=== PATIENT | female | born 1975 | race African-American/Black ===

== ENCOUNTER 2018-10-21 12:40 | Inpatient (IN) | payer MEDICARE, MEDICAID ==
[~2018-10-21] VITALS: Ht 167.6 cm; Wt 81.6 kg
[~2018-10-21 12:40] MED LIST: ASPIRIN81 M1 PO; CATAPRES-TTS-31 EA TD; CLONIDINE0.1 MG; LABETALOL H5 MG/1 ML; LABETALOL HCL200 MG ORAL; NEXIUM40 MG ORAL; NIFEDIPINE20 MG PO; PERCOCET 5-3251 EACH PO; PHENERGAN25 M1 PO; RENAGEL800 MG; SENSIPAR30 MG ORAL
[2018-10-21] MEDS ORDERED: Morphine Sulfate 4mg/ml Inj (IV USE ONLY) IVP ONE ×2 (13:00→16:00)
[2018-10-21 13:05] VITALS: BP 170/94
[2018-10-21] MEDS ORDERED: Isovue-300 100ml vial INJ PRN (13:15)
[2018-10-21 14:17] LABS: BASOPHILS % (AUTO) 2.4 % (0.0-2.0); EOSINOPHILS % (AUTO) 1.2 % (0.0-3.0); HEMATOCRIT 41.8 % (37.0-47.0); HEMOGLOBIN 12.3 G/DL (12.0-16.0); LYMPHOCYTES % (AUTO) 15.7 % (20.0-45.0); MEAN CORPUSCULAR VOLUME 75 FL (80-99); MONOCYTES % (AUTO) 5.8 % (1.0-10.0); NEUTROPHILS % (AUTO) 74.8 % (45.0-75.0); PLATELET COUNT 159 K/UL (150-450); RED BLOOD COUNT 5.55 M/UL (4.20-5.40); RED CELL DISTRIBUTION WIDTH 18.6 % (11.6-14.8); WHITE BLOOD COUNT 4.6 K/UL (4.8-10.8)
[2018-10-21 14:20] LABS: ALANINE AMINOTRANSFERASE 33 U/L (12-78); ALBUMIN 4.2 G/DL (3.4-5.0); ALBUMIN/GLOBULIN RATIO 1.1 (1.0-2.7); ALKALINE PHOSPHATASE 72 U/L (46-116); ANION GAP 14 mmol/L (5-15); ASPARTATE AMINO TRANSFERASE 34 U/L (15-37); BILIRUBIN,TOTAL 0.5 MG/DL (0.2-1.0); BLOOD UREA NITROGEN 51 mg/dL (7-18); CALCIUM 9.5 MG/DL (8.5-10.1); CARBON DIOXIDE 23 MMOL/L (21-32); CHLORIDE 104 MMOL/L (98-107); CREATININE 10.7 MG/DL (0.55-1.30); SODIUM 141 MMOL/L (136-145)
--- NOTE | 2018-10-21 14:25 | NUR ---
ED Nurse Note: patient was brought in by her boyfriend, complaining of N/V, abdominal pain 10/10. also per patient she has pain in her legs. AAO x4, skin is dry, intact. Patient has dialisis every M, W, F. AV fistula on her left upper arm. Boyfriend is by bedside.
[2018-10-21 14:27] LABS: POTASSIUM 6.8 MMOL/L (3.5-5.1)
--- NOTE | 2018-10-21 14:39 | NUR ---
ED Nurse Note: BLOOD REDRAWN AND SENT TO LAB.
[2018-10-21] MEDS ORDERED: Insulin Human Regular 100units/ml 3ml IV ONE (14:45)
[2018-10-21] MEDS ORDERED: Calcium Gluconate 1gm/10ml vial IVP ONE (14:45)
--- NOTE | 2018-10-21 14:57 | Emergency Room Report ---
History of Present Illness General Chief Complaint: Abdominal Pain Source: Patient (Davon Briggs MD) Present Illness HPI 43-year-old female presents ED for evaluation. Complaining of abdominal pain with nausea and vomiting 1 day. Started yesterday. Epigastric, 10 out of 10, sharp. Nonradiating. Denies chest pain or shortness of breath. History of end -stage renal disease on dialysis. States she did not complete her dialysis session yesterday because of the pain. Denies vomiting or diarrhea. No other aggravating relieving factors. Denies any other associated symptoms (Davon Briggs MD) Allergies: Coded Allergies: No Known Allergies (Unverified , 01/12/14) Patient History Past Medical History: renal disease, dialysis Past Surgical History: none Pertinent Family History: none Social History: Denies: smoking, alcohol use, drug use Now: No Immunizations: UTD Reviewed Nursing Documentation: PMH: Agreed; PSxH: Agreed (Davon Briggs MD) Nursing Documentation-PMH Past Medical History: No History, Except For Hx Cardiac Problems: Yes Hx Hypertension: Yes Hx Pacemaker: No Hx Asthma: No Hx COPD: No Hx Diabetes: No Hx Cancer: No Hx Gastrointestinal Problems: No Hx Dialysis: Yes - MWF Hx Neurological Problems: No - osteoporosis Hx Cerebrovascular Accident: No Hx Seizures: No (Davon Briggs MD) Review of Systems All Other Systems: negative except mentioned in HPI (Davon Briggs MD) Physical Exam Vital Signs Date Time Temp Pulse Resp B/P (MAP) Pulse Ox O2 Delivery O2 Flow Rate FiO2 10/21/18 12:45 98.4 89 20 168/97 98 Room Air Sp02 EP Interpretation: reviewed, normal General Appearance: no apparent distress, alert, GCS 15, non-toxic Head: normocephalic, atraumatic Eyes: bilateral eye normal inspection, bilateral eye PERRL ENT: hearing grossly normal, normal pharynx, no angioedema, normal voice Neck: full range of motion, supple/symm/no masses Respiratory: chest non-tender, lungs clear, normal breath sounds, speaking full sentences Cardiovascular #1: regular rate, rhythm, no edema Cardiovascular #2: 2+ carotid (R), 2+ carotid (L), 2+ radial (R), 2+ radial (L) , 2+ dorsalis pedis (R), 2+ dorsalis pedis (L) Gastrointestinal: normal bowel sounds, soft, non-distended, no guarding, no rebound, tenderness - epigastric Rectal: deferred Genitourinary: normal inspection, no CVA tenderness Musculoskeletal: back normal, gait/station normal, normal range of motion, non- tender Neurologic: alert, oriented x3, responsive, motor strength/tone normal, sensory intact, speech normal Psychiatric: judgement/insight normal, memory normal, mood/affect normal, no suicidal/homicidal ideation Reflexes: 3+ bicep (R), 3+ bicep (L), 3+ tricep (R), 3+ tricep (L), 3+ knee (R) , 3+ knee (L) Skin: normal color, no rash, warm/dry, well hydrated Lymphatic: no adenopathy (Davon Briggs MD) Medical Decision Making Diagnostic Impression: Primary Impression: Hyperkalemia, diminished renal excretion Additional Impressions: ESRD on dialysis Abdominal pain Qualified Codes: R10.13 - Epigastric pain Labs Test 10/21/18 13:40 White Blood Count 4.6 K/UL (4.8-10.8) Red Blood Count 5.55 M/UL (4.20-5.40) Hemoglobin 12.3 G/DL (12.0-16.0) Hematocrit 41.8 % (37.0-47.0) Mean Corpuscular Volume 75 FL (80-99) Mean Corpuscular Hemoglobin 22.2 PG (27.0-31.0) Mean Corpuscular Hemoglobin Concent 29.4 G/DL (32.0-36.0) Red Cell Distribution Width 18.6 % (11.6-14.8) Platelet Count 159 K/UL (150-450) Mean Platelet Volume 9.2 FL (6.5-10.1) Neutrophils (%) (Auto) 74.8 % (45.0-75.0) Lymphocytes (%) (Auto) 15.7 % (20.0-45.0) Monocytes (%) (Auto) 5.8 % (1.0-10.0) Eosinophils (%) (Auto) 1.2 % (0.0-3.0) Basophils (%) (Auto) 2.4 % (0.0-2.0) Sodium Level 141 MMOL/L (136-145) Potassium Level 6.8 MMOL/L (3.5-5.1) Chloride Level 104 MMOL/L (98-107) Carbon Dioxide Level 23 MMOL/L (21-32) Anion Gap 14 mmol/L (5-15) Blood Urea Nitrogen 51 mg/dL (7-18) Creatinine 10.7 MG/DL (0.55-1.30) Estimat Glomerular Filtration Rate 4.7 mL/min (>60) Glucose Level 79 MG/DL (74-106) Calcium Level 9.5 MG/DL (8.5-10.1) Total Bilirubin 0.5 MG/DL (0.2-1.0) Aspartate Amino Transf (AST/SGOT) 34 U/L (15-37) Alanine Aminotransferase (ALT/SGPT) 33 U/L (12-78) Alkaline Phosphatase 72 U/L (46-116) Troponin I 0.040 ng/mL (0.000-0.056) Total Protein 8.1 G/DL (6.4-8.2) Albumin 4.2 G/DL (3.4-5.0) Globulin 3.9 g/dL Albumin/Globulin Ratio 1.1 (1.0-2.7) Lipase 169 U/L (73-393) (Davon Briggs MD) ER Course I received signout from Dr. Briggs 43-year-old female, end-stage renal disease, found to be hyperkalemic, this was treated. Also with abdominal pain. I was told to follow-up on the CT scan of her abdomen. CT scan results are below CT Abdomen Pelvis IMPRESSION: No acute findings. Suboptimal evaluation of the appendix which is only partially seen but appears normal as such. No secondary signs of acute appendicitis seen. Atrophic kidneys. Innumerable cysts. 2 tiny hypodensities in the liver too small to characterize adequately. Atherosclerotic vascular disease. Fused bilateral sacroiliac joints. Old rib fractures Patient still in some pain, had to give her more pain medication. We'll admit I signed out patient [facility] EKG Diagnostic Results Rate: normal Rhythm: NSR ST Segments: other - peaked Twaves in lateral leads ASA given to the pt in ED: No (Davon Briggs MD) Rhythm Strip Diag. Results EP Interpretation: yes Rhythm: NSR, no PVC's, no ectopy (Davon Briggs MD) Last Vital Signs Date Time Temp Pulse Resp B/P (MAP) Pulse Ox O2 Delivery O2 Flow Rate FiO2 10/21/18 12:45 98.4 89 20 168/97 98 Room Air Status: improved (Davon Briggs MD) Disposition: ADMITTED INPATIENT Condition: Serious Referrals: NOT CHOSEN IPA/,REFERRING (PCP) Davon Briggs MD Oct 21, 2018 14:57 Rhys Weber M.D. Oct 21, 2018 17:53
[2018-10-21 15:10] VITALS: BP 168/90
--- NOTE | 2018-10-21 15:10 | NUR ---
ED Nurse Note: patient is in the bed sleeping, no acute disstress noticed
--- NOTE | 2018-10-21 16:06 | Diagnostic Imaging Report ---
Indication: Abdominal pain Technique: Continuous helical transaxial imaging of the abdomen and pelvis was obtained from the lung bases to the pubic symphysis during intravenous contrast administration. Coronal 2-D reformats were also obtained. Study obtained in a Siemens sensation [address] Automatic Exposure Control was utilized. Total Dose length Product (DLP): 717.[address] Dose Index Volume (CTDIvol): 14.12 mGy Comparison: None Findings: Lung bases are clear. There are 2 tiny hypodensities in the liver too small to adequately characterize. Spleen is unremarkable. The kidneys are atrophic. There are innumerable cysts within both kidneys. Moderate aortoiliac calcifications are present. The gallbladder, spleen and pancreas are unremarkable. The bladder is nondistended. Uterus noted. Appendix is not seen well but is probably identified at least partially and appears normal as such. The sacroiliac joints are fused. There are old rib fractures on the left side. IMPRESSION: No acute findings. Suboptimal evaluation of the appendix which is only partially seen but appears normal as such. No secondary signs of acute appendicitis seen. Atrophic kidneys. Innumerable cysts. 2 tiny hypodensities in the liver too small to characterize adequately. Atherosclerotic vascular disease. Fused bilateral sacroiliac joints. Old rib fractures The CT scanner at [facility] is accredited by the [employer] and the scans are performed using dose optimization techniques as appropriate to a performed exam including Automatic Exposure control.
[2018-10-21 16:40] VITALS: BP 175/98
--- NOTE | 2018-10-21 17:14 | NUR ---
ED Nurse Note: patient was admited to [facility] due to hyperkalemia, AAO x4, BP is 170/89, ER MD aware. Other VSS at this time. Patient was transfered by ACLS protocol.
--- NOTE | 2018-10-21 17:16 | NUR ---
ED Nurse Note: all belonging were given to the patient.
--- NOTE | 2018-10-21 17:18 | NUR ---
CASE MANAGEMENT: INITIAL REVIEW 43 YO F PRESENTED TO OUR ED FROM HOME CC: N/V AND BODY ACHES PMHx: ESRD. HD MWF. HTN. SI:HYPERKALEMIA. ESRD. T 98.4 HR 89 RR 20 B/P 168/97 SATS 98% ON RA WBC 4.6 K 6.8 BUN 51 CR 10.7 IS: ZOFRAN IV X1 PEPCID IV X1 MORPHINE IV X1 CALCIUM GLUCONATE IV X1 INSULIN HUMAN REGULAR 10 UNITS X1 D50W X[address] Abdomen Pelvis w/Contrast (-) PATIENT ADMITTED TO STEP DOWN UNIT 10/21/2018 @ 1433 DCP: PATIENT TO BE DISCHARGED TO HOME ONCE MEDICALLY CLEARED. PLAN OF CARE: NEPHRO CONSULT Addendum: 10/21/18 at 1928 by Beernice Jones CM INTERQUAL MET
[2018-10-21 17:30] VITALS: BP 170/104
--- NOTE | 2018-10-21 17:30 | NUR ---
NURSE NOTES: received pt from ER with dx Hyperkalemia, awake, alert, oriented, BP elevated, HD pt, AV shunt on left upper arm, skin warm and dry to touch, intact, anuric, no co pain at this time, pt on RA O2SAT 100%, CALL DR Singh for order.
[2018-10-21] MEDS ORDERED: D5 1/2NS 1,000 ML IV SCH (18:51)
[2018-10-21] MEDS ORDERED: Miralax 17gm pkt ORAL PRN (19:00)
[2018-10-21] MEDS ORDERED: Albuterol/Ipratropium 3ml neb HHN PRN (19:00)
[2018-10-21] MEDS ORDERED: Amikacin Rx to dose MISC PRN (19:00)
--- NOTE | 2018-10-21 19:10 | History & Physical ---
History and Physical History & Physicial The patient was seen and examined at bedside and all new and available data was reviewed in the patients chart. F/U Labs (Patient was seen earlier today. Signature timestamp does not reflect patient encounter time) Alen Alvarez MD, MD Oct 21, 2018 19:09
--- NOTE | 2018-10-21 19:28 | NUR ---
HAND-OFF: Report given to HERMES OLVERA.
[2018-10-21 20:00] VITALS: BP 165/95
[2018-10-21] MEDS ORDERED: Vancomycin 1.25gm Premix IVPB SCH (21:00)
[2018-10-21] MEDS: Heparin 5000 units/ml inj SUBQ SCH (21:06)
[2018-10-21] MEDS ORDERED: Amikacin 500 MG in NS 110 ML IV SCH (22:00)
[2018-10-22] VITALS (7 sets, daily range): BP systolic 140–180; BP diastolic 80–116
--- NOTE | 2018-10-22 00:15 | NUR ---
NURSE NOTES:Aware Dr Jaime that pts bp 180/80 no prn meds for high bp. - awaiting for md to call back.
--- NOTE | 2018-10-22 01:10 | NUR ---
NURSE NOTES:Re called Dr Jaime with pts high bp and pts complaining of pain to both legs. - with orders given and carried out.
[2018-10-22] MEDS: Morphine Sulfate 2mg/ml Inj(IV/IM USE ONLY) IVP PRN ×2 (01:35→17:41)
--- NOTE | 2018-10-22 01:35 | NUR ---
NURSE NOTES:Morphine 2 mg ivp given fo abdominal pain scale 0f 8 radiating to both legs
--- NOTE | 2018-10-22 01:39 | NUR ---
NURSE NOTES:Clonidine 0.1 mg po given for pts high bp.
--- NOTE | 2018-10-22 01:46 | NUR ---
NURSE NOTES:Zofran 4mg ivp given for pts vomiting with relief.
--- NOTE | 2018-10-22 01:47 | NUR ---
NURSE NOTES:Pt threw up saliva colored vomitus [id number] ml-Zofran 4mg ivp given.
--- NOTE | 2018-10-22 04:00 | NUR ---
NURSE NOTES:SBP 158/85, sleeping well at this time.
--- NOTE | 2018-10-22 06:00 | NUR ---
NURSE NOTES: pt refused blood draw stating she wants dialysis nurse to draw her blood
--- NOTE | 2018-10-22 07:09 | NUR ---
HAND-OFF: Report given to Nish OLVERA. Addendum: 10/22/18 at 0746 by DESMOND MIRZA RN rudi hoang
--- NOTE | 2018-10-22 07:46 | NUR ---
HAND-OFF: Report given to Rosalina Ramirez RN.
--- NOTE | 2018-10-22 08:20 | NUR ---
NURSE NOTES: received pt in the bed, awake, alert, oriented, no co pain, no SOB, skin warm and dry to touch, intact, pt on RA, O2 sat 100%, AV shunt on left upper arm, K 6.1, HX ESRD, bed in low position, call light within reach.
[2018-10-22 08:28] LABS: BASOPHILS % (AUTO) 2.2 % (0.0-2.0); EOSINOPHILS % (AUTO) 1.6 % (0.0-3.0); HEMATOCRIT 36.6 % (37.0-47.0); HEMOGLOBIN 10.9 G/DL (12.0-16.0); LYMPHOCYTES % (AUTO) 24.5 % (20.0-45.0); MEAN CORPUSCULAR VOLUME 76 FL (80-99); MONOCYTES % (AUTO) 7.3 % (1.0-10.0); NEUTROPHILS % (AUTO) 64.5 % (45.0-75.0); PLATELET COUNT 135 K/UL (150-450); RED BLOOD COUNT 4.82 M/UL (4.20-5.40); WHITE BLOOD COUNT 4.6 K/UL (4.8-10.8)
[2018-10-22 08:52] LABS: ALBUMIN 3.6 G/DL (3.4-5.0); ANION GAP 14 mmol/L (5-15); BLOOD UREA NITROGEN 60 mg/dL (7-18); CALCIUM 9.4 MG/DL (8.5-10.1); CARBON DIOXIDE 23 MMOL/L (21-32); CHLORIDE 101 MMOL/L (98-107); CREATININE 11.8 MG/DL (0.55-1.30); PHOSPHORUS 7.6 MG/DL (2.5-4.9); SODIUM 139 MMOL/L (136-145)
[2018-10-22 08:53] LABS: POTASSIUM 6.1 MMOL/L (3.5-5.1)
[2018-10-22] MEDS: Labetalol 200mg tab ORAL SCH ×2 (09:10→17:40)
[2018-10-22] MEDS: Sensipar 30mg Tab ORAL SCH ×2 (09:10→17:41)
--- NOTE | 2018-10-22 09:10 | NUR ---
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 ESRD VS: BP 175/98, 89, T 98.4, RR 20 SpO2 98 WBC 4.6, K 6.8, BUN 51, CR 10.7 ABDOMINAL/PELVIS CT IMPRESSION: Atrophic kidneys. Innumerable cysts. 2 tiny hypodensities in the liver too small to characterize adequately. Atherosclerotic vascular disease. Fused bilateral sacroiliac joints. Old rib fractures IS:MORPHINE 4mg IVP FAMOTIDINE 20mg IVP ZOFRAN 4mg IVP D50 IV NOVOLIN R IV CALCIUM GLUCONATE 1gm IVP D5 NS IV ADMITTED TO SDU DC PLAN: RETURN HOME
[2018-10-22] MEDS: Heparin 5000 units/ml inj SUBQ SCH ×2 (09:12→21:19)
--- NOTE | 2018-10-22 09:55 | Consultation ---
History of Present Illness General Date patient seen: Oct 22, 2018 Chief Complaint: Abdominal Pain Present Illness HPI 43-year-old female with hx of ESRF on HD MWF, HTN, CAD presented to ED for evaluation of abdominal pain with nausea and vomiting 1 day. the pain was epigastric, 10 out of 10, sharp. Nonradiating. Denies chest pain or shortness of breath. States she did not complete her dialysis session yesterday because of the pain. Denies vomiting or diarrhea. No other aggravating relieving factors. Denies any other associated symptoms. She had a CT of abdomen and pelvis which was negative. Her K was high, after receiving initial treatment she is admitted to [facility]. While I was in room she had an argument with a male visitor and got upset and stated that she has to leave today. Allergies: Coded Allergies: No Known Allergies (Unverified , 01/12/14) Medication History Scheduled Cinacalcet* (Sensipar*), 60 MG ORAL BID, (Reported) Clonidine HCl (Catapres-Tts 3), 1 PATCH TD QWEEK, (Reported) Esomeprazole Magnesium (Nexium), 40 MG ORAL DAILY, (Reported) Labetalol Hcl* (Normodyne*), 200 MG ORAL BID, (Reported) Nifedipine* (Nifedipine*), 90 PO BID, (Reported) Miscellaneous Medications Sevelamer Hcl (Renagel), (Reported) Patient History Healthcare decision maker Resuscitation status Full Code Advanced Directive on File No Past Medical/Surgical History Past Medical/Surgical History: (1) ESRD on dialysis (2) Anemia (3) hypertension Review of Systems Eye: Reports: no symptoms Gastrointestinal: Reports: abdominal pain, diarrhea Physical Exam General Appearance: WD/WN, mild distress HEENT: normocephalic, atraumatic Neck: non-tender, normal alignment Respiratory/Chest: chest wall non-tender, lungs clear Breasts: no masses Cardiovascular/Chest: normal peripheral pulses Abdomen: normal bowel sounds, soft Genitourinary/Rectal: normal genital exam Last 24 Hour Vital Signs Date Time Temp Pulse Resp B/P (MAP) Pulse Ox O2 Delivery O2 Flow Rate FiO2 10/22/18 09:10 67 163/87 10/22/18 08:00 Room Air 10/22/18 08:00 97.0 67 20 163/87 (112) 100 10/22/18 07:42 69 10/22/18 04:00 97.8 80 18 159/85 (109) 100 10/22/18 04:00 Room Air 10/22/18 03:49 76 10/22/18 01:39 180/80 10/22/18 00:00 80 10/22/18 00:00 97.5 80 18 180/80 (113) 100 10/22/18 00:00 Room Air 10/21/18 21:00 165/95 10/21/18 20:00 96.4 72 18 165/95 (118) 100 10/21/18 20:00 Room Air 10/21/18 20:00 85 10/21/18 17:50 Room Air 10/21/18 17:30 96.4 82 18 170/104 (126) 100 10/21/18 17:08 98.6 98 20 170/89 98 Room Air 10/21/18 16:40 98.3 88 16 175/98 98 Room Air 10/21/18 15:10 97.6 80 18 168/90 100 Room Air 10/21/18 13:05 98.0 72 15 170/94 98 Room Air 10/21/18 13:05 72 15 Room Air 10/21/18 12:45 98.4 89 20 168/97 98 Room Air Intake and Output 10/21/18 10/22/18 18:59 06:59 Intake Total 200 ml 100 ml Output Total 50 ml Balance 200 ml 50 ml Intake Oral 200 ml 100 ml Output Urine Total 0 ml Emesis 50 ml # Bowel Movements 3 Laboratory Tests Test 10/21/18 13:40 10/21/18 15:15 10/21/18 20:18 10/22/18 07:50 White Blood Count 4.6 K/UL (4.8-10.8) L 4.6 K/UL (4.8-10.8) L Red Blood Count 5.55 M/UL (4.20-5.40) H 4.82 M/UL (4.20-5.40) Hemoglobin 12.3 G/DL (12.0-16.0) 10.9 G/DL (12.0-16.0) L Hematocrit 41.8 % (37.0-47.0) 36.6 % (37.0-47.0) L Mean Corpuscular Volume 75 FL (80-99) L 76 FL (80-99) L Mean Corpuscular Hemoglobin 22.2 PG (27.0-31.0) L 22.7 PG (27.0-31.0) L Mean Corpuscular Hemoglobin Concent 29.4 G/DL (32.0-36.0) L 29.9 G/DL (32.0-36.0) L Red Cell Distribution Width 18.6 % (11.6-14.8) H 18.0 % (11.6-14.8) H Platelet Count 159 K/UL (150-450) 135 K/UL (150-450) L Mean Platelet Volume 9.2 FL (6.5-10.1) 9.2 FL (6.5-10.1) Neutrophils (%) (Auto) 74.8 % (45.0-75.0) 64.5 % (45.0-75.0) Lymphocytes (%) (Auto) 15.7 % (20.0-45.0) L 24.5 % (20.0-45.0) Monocytes (%) (Auto) 5.8 % (1.0-10.0) 7.3 % (1.0-10.0) Eosinophils (%) (Auto) 1.2 % (0.0-3.0) 1.6 % (0.0-3.0) Basophils (%) (Auto) 2.4 % (0.0-2.0) H 2.2 % (0.0-2.0) H Sodium Level 141 MMOL/L (136-145) 139 MMOL/L (136-145) Potassium Level 6.8 MMOL/L (3.5-5.1) *H 6.1 MMOL/L (3.5-5.1) *H Chloride Level 104 MMOL/L (98-107) 101 MMOL/L (98-107) Carbon Dioxide Level 23 MMOL/L (21-32) 23 MMOL/L (21-32) Anion Gap 14 mmol/L (5-15) 14 mmol/L (5-15) Blood Urea Nitrogen 51 mg/dL (7-18) H 60 mg/dL (7-18) H Creatinine 10.7 MG/DL (0.55-1.30) H 11.8 MG/DL (0.55-1.30) H Estimat Glomerular Filtration Rate 4.7 mL/min (>60) 4.2 mL/min (>60) Glucose Level 79 MG/DL (74-106) 66 MG/DL (74-106) L Calcium Level 9.5 MG/DL (8.5-10.1) 9.4 MG/DL (8.5-10.1) Total Bilirubin 0.5 MG/DL (0.2-1.0) Aspartate Amino Transf (AST/SGOT) 34 U/L (15-37) Alanine Aminotransferase (ALT/SGPT) 33 U/L (12-78) Alkaline Phosphatase 72 U/L (46-116) Troponin I 0.040 ng/mL (0.000-0.056) 0.053 ng/mL (0.000-0.056) 0.072 ng/mL (0.000-0.056) Total Protein 8.1 G/DL (6.4-8.2) Albumin 4.2 G/DL (3.4-5.0) 3.6 G/DL (3.4-5.0) Globulin 3.9 g/dL Albumin/Globulin Ratio 1.1 (1.0-2.7) Lipase 169 U/L (73-393) Prothrombin Time 10.5 SEC (9.30-11.50) Prothromb Time International Ratio 1.0 (0.9-1.1) Activated Partial Thromboplast Time 29 SEC (23-33) Phosphorus Level 7.6 MG/DL (2.5-4.9) H Height (Feet): 5 Height (Inches): 6.00 Weight (Pounds): 180 Medications Current Medications Medications (Trade) Dose Ordered Sig/Rajwinder Route PRN Reason Start Time Stop Time Status Last Admin Dose Admin Acetaminophen (Tylenol) 650 mg Q4H PRN ORAL Fever 10/21/18 19:00 11/20/18 18:59 Albuterol/ Ipratropium (Albuterol/ Ipratropium) 3 ml Q4H PRN HHN Shortness of Breath 10/21/18 19:00 10/26/18 18:59 Amikacin Protocol (Amikacin pharmacy to dose) 1 ea DAILY PRN MISC Per rx protocol 10/21/18 19:00 11/20/18 18:59 Cinacalcet (Sensipar) 60 mg BID ORAL 10/22/18 09:00 11/21/18 08:59 10/22/18 09:10 Clonidine HCl (Catapres TTS-3) 1 patch QWEEK TDERMAL 10/21/18 20:00 11/20/18 19:59 10/21/18 21:00 Clonidine HCl (Catapres Tab) 0.1 mg Q4H PRN ORAL For High Blood Pressure 10/22/18 01:15 11/21/18 01:14 10/22/18 01:39 Dextrose (Dextrose 50%) 25 ml Q30M PRN IV Hypoglycemia 10/21/18 19:00 11/20/18 18:59 Dextrose (Dextrose 50%) 50 ml Q30M PRN IV Hypoglycemia 10/21/18 19:00 11/20/18 18:59 Heparin Sodium (Porcine) (Heparin 5000 units/ml) 5,000 units EVERY 12 HOURS SUBQ 10/21/18 21:00 11/20/18 20:59 10/22/18 09:12 Hydralazine HCl (Apresoline) 10 mg Q4H PRN IV SBP > 160mmHg 10/22/18 07:30 11/21/18 07:29 Labetalol HCl (Normodyne) 200 mg BID ORAL 10/22/18 09:00 11/21/18 08:59 10/22/18 09:10 Morphine Sulfate (Morphine Sulfate) 2 mg Q4H PRN IVP For Pain 10/22/18 01:15 10/29/18 01:14 10/22/18 01:35 Ondansetron HCl (Zofran) 4 mg Q6H PRN IVP Nausea & Vomiting 10/21/18 19:00 11/20/18 18:59 10/22/18 01:46 Polyethylene Glycol (Miralax) 17 gm DAILYPRN PRN ORAL Constipation 10/21/18 19:00 11/20/18 18:59 Temazepam (Restoril) 15 mg HSPRN PRN ORAL Insomnia 10/21/18 19:00 10/28/18 18:59 Vancomycin HCl (Vanco rx to dose) 1 ea DAILY PRN MISC Per rx protocol 10/21/18 19:00 11/20/18 18:59 Assessment/Plan Problem List: (1) Intractable nausea and vomiting ICD Codes: R11.2 - Nausea with vomiting, unspecified SNOMED: 598208586, [id number] (2) Hyperkalemia ICD Codes: E87.5 - Hyperkalemia SNOMED: 78173067 (3) hypertension (4) ESRD on dialysis ICD Codes: N18.6 - End stage renal disease; Z99.2 - Dependence on renal dialysis SNOMED: 968360368 Assessment/Plan npo symptomatic treatment HD monitor BP check electrolytes resume home medication dvt prophylaxis. Moreno Jaime MD Oct 22, 2018 09:55
--- NOTE | 2018-10-22 10:30 | NUR ---
NURSE NOTES: dr. Vega saw pt, ordered stat HD, called office, spoke with Diego.
--- NOTE | 2018-10-22 10:30 | History and Physical Report ---
CHIEF COMPLAINT: Abdominal pain associated with nausea and vomiting over one day. HISTORY OF PRESENT ILLNESS: This is a 41-year-old female with past medical history significant for end-stage renal disease, on hemodialysis, Saturday, Saturday, and Saturday; hypertension; and osteoporosis, who was presented to the emergency room complaining about nausea and vomiting associated with abdominal pain over the past 24 hours. The patient stated the pain started yesterday, mostly located in the epigastric area, then spread to the generalized abdomen, 10/10 in intensity. Nonradiating. She denies any chest pain or shortness of breath. Denies any diarrhea. Denies any bright red blood per rectum. Shortly after initial evaluation in the emergency room, the patient was admitted to the hospital with intractable nausea and vomiting with abdominal pain possibly due to the gastroenteritis as well as hyperkalemia. PAST MEDICAL HISTORY/PAST SURGICAL HISTORY: As above, history of end-stage renal disease, on hemodialysis, Saturday, Saturday, and Saturday; hypertension; atherosclerotic heart disease; and osteoporosis. Denies any history of diabetes. Denies any history of pacemaker. Denies any loss of consciousness. The patient has a history of AV shunt placement in the left upper extremity. MEDICATIONS AT HOME: Please refer to medication reconciliation. ALLERGIES: No known drug allergies. SOCIAL HISTORY: Denies any smoking, alcohol, or drugs at this time. FAMILY HISTORY: Noncontributory. REVIEW OF SYSTEMS: Mostly as above. Denies any dysuria, frequency, or hematuria. Denies any hemoptysis or hematochezia. Denies any bright red blood per rectum. Complained about the nausea and vomiting. Denies any suicidal or homicidal ideation. PHYSICAL EXAMINATION: VITAL SIGNS: On admission, temperature 98.4, pulse 89, respirations 20, and blood pressure 158/97. GENERAL: The patient is awake and responsive, in no acute distress. HEAD AND NECK: Pupils are equal and reactive to light. Extraocular movements are intact. Neck was supple. No JVD. LUNGS: Good air entry. No wheezing or rales. HEART: S1 and S2. Distant heart sounds. No gallops. ABDOMEN: Soft. Generalized tenderness, however, it has been more in the epigastric area than anywhere else. No rebound tenderness. No fluid shift. Mildly obese. EXTREMITIES: No cyanosis, clubbing, or edema. Left upper extremity has AV fistula. NEUROLOGIC: Cranial nerves II through XII grossly intact. Motor is 5/5 in all extremities. Gait is intact. RECTAL: Refused and deferred. GENITOURINARY: Refused and deferred. PSYCHIATRIC: Mood and affect is intact. LABORATORY AND DIAGNOSTIC DATA: On admission from the ER, PT of 10, INR 1.0, and PTT of 29. Sodium 141, potassium 6.8, chloride 104, bicarbonate 23, BUN 51, and creatinine 10.7. First and second troponin 0.04, 0.053. Liver function tests unremarkable. Lipase is 169. WBC 14, hemoglobin 12, hematocrit 41, and platelets 159. The patient had a CT scan of the abdomen and pelvis, no acute findings. Suboptimal evaluation of the appendix, which is only partially seen, but appeared normal. No secondary sign of acute appendicitis. Atrophic kidney and numerous cysts, too tiny hypodensity in the liver too much to characterize adequately, atherosclerotic vascular disease, fused bilateral sacroiliac joint fracture. ASSESSMENT: 1. Intractable nausea and vomiting with abdominal pain, possible due to gastroenteritis. 2. Hyperkalemia. 3. End-stage renal disease, on hemodialysis. 4. Hypertension. 5. Osteoporosis. PLAN: 1. Admit the patient to monitored unit. 2. We will follow up laboratory. 3. Monitor the culture. 4. Code status is Full Code. 5. Pain medication. 6. Advance the diet as tolerated. 7. Discussed the patient with regard to the care that will be provided to her. Alen Barragan M.D. DR: PRIMITIVO JOB#: [id number] CC:
--- NOTE | 2018-10-22 10:52 | Consultation ---
Consult Note Consult Note asked to eval for urgent HD HPI 43-year-old female presents ED for evaluation. Complaining of abdominal pain with nausea and vomiting 1 day. Started yesterday. Epigastric, 10 out of 10, sharp. Nonradiating. Denies chest pain or shortness of breath. History of end -stage renal disease on dialysis. States she did not complete her dialysis session yesterday because of the pain. Denies vomiting or diarrhea. No other aggravating relieving factors. Denies any other associated symptoms interviewed examined on dialysis for 20 years has left arm shunt never transplanted just changed dialysis unit Assessment/Plan 1. Intractable nausea and vomiting with abdominal pain, possible due to gastroenteritis. 2. Hyperkalemia. 3. End-stage renal disease, on hemodialysis. 4. Hypertension. Hypertensive Kidney disease 5. Osteoporosis. 6. Anemia of CKD HD today with Low K bath Per PMD keep BP in check, adjust BP meds Anemia Edgard Clark MD Oct 22, 2018 10:52
[2018-10-22] MEDS ORDERED: DiphenhydrAMINE 50mg/ml Inj IVP PRN (11:00)
--- NOTE | 2018-10-22 11:02 | NUR ---
RADIOLOGY DEPT., CHEST X-RAY DONE.-P.DYE
--- NOTE | 2018-10-22 11:09 | Diagnostic Imaging Report ---
Indication: Dyspnea Technique: One view of the chest Comparison: None Findings: No acute infiltrates, effusions, or congestion. Tortuous calcified aorta. Normal heart size. Upper mediastinum unremarkable. Venous stent is seen in the left axilla, which is a new finding. No other significant interim change Impression: No acute process.
--- NOTE | 2018-10-22 15:18 | NUR ---
NURSE NOTES: HD completed, out 3000cc, BP 142/89, continue monitoring.
[2018-10-22] MEDS: Docusate 100mg cap ORAL SCH (17:40)
--- NOTE | 2018-10-22 17:41 | Internal Med Progress Note ---
Subjective Physician Name Alen Barragan Attending Physician Alen Barragan MD Current Medications Medications (Trade) Dose Ordered Sig/Rajwinder Route PRN Reason Start Time Stop Time Status Last Admin Dose Admin Acetaminophen (Tylenol) 650 mg Q4H PRN ORAL Fever 10/21/18 19:00 11/20/18 18:59 Albuterol/ Ipratropium (Albuterol/ Ipratropium) 3 ml Q4H PRN HHN Shortness of Breath 10/21/18 19:00 10/26/18 18:59 Amlodipine Besylate (Norvasc) 10 mg DAILY ORAL 10/23/18 09:00 11/22/18 08:59 Cinacalcet (Sensipar) 60 mg BID ORAL 10/22/18 09:00 11/21/18 08:59 10/22/18 09:10 Clonidine HCl (Catapres TTS-3) 1 patch QWEEK TDERMAL 10/21/18 20:00 11/20/18 19:59 10/21/18 21:00 Clonidine HCl (Catapres Tab) 0.1 mg Q4H PRN ORAL For High Blood Pressure 10/22/18 01:15 11/21/18 01:14 10/22/18 11:32 Dextrose (Dextrose 50%) 25 ml Q30M PRN IV Hypoglycemia 10/21/18 19:00 11/20/18 18:59 Dextrose (Dextrose 50%) 50 ml Q30M PRN IV Hypoglycemia 10/21/18 19:00 11/20/18 18:59 Diphenhydramine HCl (Benadryl) 50 mg ONCE PRN IVP ITCHING DURING HD 10/22/18 11:00 10/22/18 23:59 10/22/18 12:16 Docusate Sodium (Colace) 100 mg THREE TIMES A DAY ORAL 10/22/18 18:00 11/21/18 17:59 Heparin Sodium (Porcine) (Heparin 5000 units/ml) 5,000 units EVERY 12 HOURS SUBQ 10/21/18 21:00 11/20/18 20:59 10/22/18 09:12 Hydralazine HCl (Apresoline) 25 mg Q8HR ORAL 10/22/18 22:00 11/21/18 21:59 Labetalol HCl (Normodyne) 200 mg BID ORAL 10/22/18 09:00 11/21/18 08:59 10/22/18 09:10 Morphine Sulfate (Morphine Sulfate) 2 mg Q4H PRN IVP For Pain 10/22/18 01:15 10/29/18 01:14 10/22/18 01:35 Ondansetron HCl (Zofran) 4 mg Q6H PRN IVP Nausea & Vomiting 10/21/18 19:00 11/20/18 18:59 10/22/18 01:46 Pantoprazole (Protonix) 40 mg DAILY ORAL 10/23/18 09:00 11/22/18 08:59 Polyethylene Glycol (Miralax) 17 gm DAILYPRN PRN ORAL Constipation 10/21/18 19:00 11/20/18 18:59 Sevelamer Carbonate (Renvela) 1,600 mg THREE TIMES A DAY ORAL 10/22/18 18:00 11/21/18 17:59 Temazepam (Restoril) 15 mg HSPRN PRN ORAL Insomnia 10/21/18 19:00 10/28/18 18:59 Allergies: Coded Allergies: No Known Allergies (Unverified , 01/12/14) Subjective Complain about epigastric abdominal pain, poor appetite, no nausea, no vomiting , no chest pain, no shortness of breath, K: 6.1. Objective Last Vital Signs Date Time Temp Pulse Resp B/P (MAP) Pulse Ox O2 Delivery O2 Flow Rate FiO2 10/22/18 16:49 71 162/89 10/22/18 16:00 97.7 20 98 10/22/18 16:00 Room Air Laboratory Tests Test 10/21/18 20:18 10/22/18 07:50 Troponin I 0.053 ng/mL (0.000-0.056) 0.072 ng/mL (0.000-0.056) White Blood Count 4.6 K/UL (4.8-10.8) L Red Blood Count 4.82 M/UL (4.20-5.40) Hemoglobin 10.9 G/DL (12.0-16.0) L Hematocrit 36.6 % (37.0-47.0) L Mean Corpuscular Volume 76 FL (80-99) L Mean Corpuscular Hemoglobin 22.7 PG (27.0-31.0) L Mean Corpuscular Hemoglobin Concent 29.9 G/DL (32.0-36.0) L Red Cell Distribution Width 18.0 % (11.6-14.8) H Platelet Count 135 K/UL (150-450) L Mean Platelet Volume 9.2 FL (6.5-10.1) Neutrophils (%) (Auto) 64.5 % (45.0-75.0) Lymphocytes (%) (Auto) 24.5 % (20.0-45.0) Monocytes (%) (Auto) 7.3 % (1.0-10.0) Eosinophils (%) (Auto) 1.6 % (0.0-3.0) Basophils (%) (Auto) 2.2 % (0.0-2.0) H Sodium Level 139 MMOL/L (136-145) Potassium Level 6.1 MMOL/L (3.5-5.1) *H Chloride Level 101 MMOL/L (98-107) Carbon Dioxide Level 23 MMOL/L (21-32) Anion Gap 14 mmol/L (5-15) Blood Urea Nitrogen 60 mg/dL (7-18) H Creatinine 11.8 MG/DL (0.55-1.30) H Estimat Glomerular Filtration Rate 4.2 mL/min (>60) Glucose Level 66 MG/DL (74-106) L Calcium Level 9.4 MG/DL (8.5-10.1) Phosphorus Level 7.6 MG/DL (2.5-4.9) H Albumin 3.6 G/DL (3.4-5.0) Intake and Output 10/21/18 10/22/18 19:00 07:00 Intake Total 200 ml 100 ml Output Total 50 ml Balance 200 ml 50 ml Intake Oral 200 ml 100 ml Output Urine Total 0 ml Emesis 50 ml # Bowel Movements 3 Objective GENERAL: The patient is awake and responsive, in no acute distress. HEAD AND NECK: Pupils are equal and reactive to light. Extraocular movements are intact. Neck was supple. No JVD. LUNGS: Good air entry. No wheezing or rales. HEART: S1 and S2. Distant heart sounds. No gallops. ABDOMEN: Soft. epigastric abdominal pain No rebound tenderness. No fluid shift. Mildly obese. EXTREMITIES: No cyanosis, clubbing, or edema. Left upper extremity has AV fistula. NEUROLOGIC: Cranial nerves II through XII grossly intact. Motor is 5/5 in all extremities. Gait is intact. RECTAL: Refused and deferred. GENITOURINARY: Refused and deferred. PSYCHIATRIC: Mood and affect is intact. Assessment/Plan Assessment/Plan ASSESSMENT: 1. Intractable nausea and vomiting with epigastric abdominal pain, possible due to gastroenteritis Vs. PUD. 2. Hyperkalemia. 3. End-stage renal disease, on hemodialysis. 4. Hypertension. 5. Osteoporosis. 5. Obesity. PLAN: 1. in monitored unit. 2. Follow up laboratory. 3. Monitor the culture. 4. Code status is Full Code. 5. Pain medication. 6. Advance the diet as tolerated. 7. GI consult with Dr. Andre. Alen Barragan MD Oct 22, 2018 17:41
[2018-10-22] MEDS: Sucralfate 1gm tab ORAL SCH ×2 (18:45→21:18)
--- NOTE | 2018-10-22 19:00 | Consultation ---
DATE OF CONSULTATION: 10/22/2018 CONSULTING PHYSICIAN: Dc Ruiz M.D. REFERRING PHYSICIAN: Alen Barragan M.D. CHIEF COMPLAINT: Abdominal pain and anemia. HISTORY OF PRESENT ILLNESS: This is a very pleasant 43-year-old female with history of end-stage renal disease, on hemodialysis, who presented to the hospital with complaint of 1 day of epigastric abdominal pain associated with vomiting. The patient states that she was supposed to get an endoscopy before, but she never got to it. Denies any coffee-ground emesis. Denies melena or hematochezia. PAST MEDICAL HISTORY: 1. End-stage renal disease, on hemodialysis. 2. Hypertension. 3. Atherosclerotic heart disease. 4. Osteoporosis. ALLERGIES: No known drug allergies. MEDICATIONS: Please see medication reconciliation list. SOCIAL HISTORY: The patient denies any tobacco, alcohol, or illicit drug abuse. FAMILY HISTORY: Noncontributory. PAST SURGICAL HISTORY: AV shunt placement for hemodialysis. PHYSICAL EXAMINATION: VITAL SIGNS: Temperature is 97, pulse is 67, respirations 20, blood pressure 180/116. HEENT: Normocephalic and atraumatic. Mild pale conjunctivae. NECK: Supple. No evidence of obvious lymphadenopathy. CARDIOVASCULAR: Regular rhythm. Plus S1 and S2. LUNGS: Clear to auscultation bilaterally. ABDOMEN: Positive bowel sounds. Soft. Minimal tenderness to palpation in the epigastric area. No rebound. No guarding. No peritoneal sign. EXTREMITIES: No cyanosis, no clubbing, no edema. LABORATORY DATA: Sodium 139, potassium 6.1, BUN is 60, creatinine is 11.8. White count 4.6, hemoglobin 10.9, hematocrit 36, platelet count is 135,000. CT of the abdomen and pelvis with contrast showed no obvious acute intra-abdominal process. ASSESSMENT AND PLAN: This is a 43-year-old female with nausea, vomiting, epigastric abdominal pain, and profound microcytic anemia. There is no CT evidence of acute findings. There is no obvious abnormal liver function tests. There is no evidence of any pancreatitis. Plan will be to start the patient on Protonix. Ordered anemia workup. The patient will benefit from an endoscopy to rule out gastric ulceration given the epigastric abdominal pain, vomiting, and profound anemia. We will schedule for tomorrow. The patient was informed of the risks and benefits of procedure and she agreed to it. I want to thank Dr. Alen Barragan for this kind referral. Dc Ruiz M.D. DR: Zenaida JOB#: [id number] CC: Alen Barragan M.D.; Fax#: [phone]
--- NOTE | 2018-10-22 19:09 | NUR ---
HAND-OFF: Report given to ARETHA OLVERA.
--- NOTE | 2018-10-22 19:10 | NUR ---
NURSE NOTES: Report received from MAY Ramirez. Patient seen in room in bed resting. Alert, verbally responsive, able to make needs known. Denies any pain at this time. patient is on RA with sp02 98%. IV site is to right hand 22G, Av shunt to left upper arm, bruit thrill present. No acute distress is noted at this time. safety measure provided. Call light is within easy reach while in bed. Will continue to monitor.
[2018-10-22] MEDS: HydrALAZINE 25mg tab ORAL SCH (21:18)
[2018-10-23] VITALS: BP 156/91
[2018-10-23] MEDS: Morphine Sulfate 2mg/ml Inj(IV/IM USE ONLY) IVP PRN ×2 (00:47→15:41)
[2018-10-23 04:00] VITALS: BP 142/86
[2018-10-23 05:18] LABS: BASOPHILS % (AUTO) 2.5 % (0.0-2.0); EOSINOPHILS % (AUTO) 2.9 % (0.0-3.0); HEMATOCRIT 36.7 % (37.0-47.0); HEMOGLOBIN 11.2 G/DL (12.0-16.0); LYMPHOCYTES % (AUTO) 26.4 % (20.0-45.0); MEAN CORPUSCULAR VOLUME 75 FL (80-99); MONOCYTES % (AUTO) 9.8 % (1.0-10.0); NEUTROPHILS % (AUTO) 58.5 % (45.0-75.0); PLATELET COUNT 138 K/UL (150-450); RED BLOOD COUNT 4.91 M/UL (4.20-5.40); RED CELL DISTRIBUTION WIDTH 17.9 % (11.6-14.8)
[2018-10-23] MEDS: HydrALAZINE 25mg tab ORAL SCH ×3 (05:30→21:16)
[2018-10-23 05:53] LABS: ALANINE AMINOTRANSFERASE 20 U/L (12-78); ALBUMIN 3.5 G/DL (3.4-5.0); ALKALINE PHOSPHATASE 67 U/L (46-116); ANION GAP 11 mmol/L (5-15); ASPARTATE AMINO TRANSFERASE 14 U/L (15-37); BILIRUBIN,TOTAL 0.4 MG/DL (0.2-1.0); BLOOD UREA NITROGEN 43 mg/dL (7-18); CALCIUM 9.1 MG/DL (8.5-10.1); CARBON DIOXIDE 28 MMOL/L (21-32); CHLORIDE 98 MMOL/L (98-107); CHOLESTEROL 177 MG/DL (< 200); FERRITIN 1297 NG/ML (8-388); HDL CHOLESTEROL 42 MG/DL (40-60); POTASSIUM 4.6 MMOL/L (3.5-5.1); SODIUM 137 MMOL/L (136-145); TRIGLYCERIDES 130 MG/DL (30-150)
[2018-10-23 06:52] LABS: % IRON SATURATION 76 % (15-50); IRON 98 ug/dL (50-175); TOTAL IRON BINDING CAPACITY 129 ug/dL (250-450)
--- NOTE | 2018-10-23 07:17 | NUR ---
HAND-OFF: Report given to Coleen Todd RN.
--- NOTE | 2018-10-23 07:20 | NUR ---
NURSE NOTES: Received report from MAY Lucero. Patient is resting in bed, in stable condition. No s/sx of SOB, breathing is even and unlabored. Denies any presence of pain or discomfort at this time. Bed is in lowest position, brakes engaged. Call light is kept within easy reach. Will continue to monitor patient.
[2018-10-23 08:00] VITALS: BP 155/101
[2018-10-23] MEDS: Sensipar 30mg Tab ORAL SCH ×2 (08:39→18:18)
[2018-10-23] MEDS: Docusate 100mg cap ORAL SCH ×3 (08:39→18:18)
[2018-10-23] MEDS: Sucralfate 1gm tab ORAL SCH ×4 (08:39→20:59)
[2018-10-23] MEDS: Labetalol 200mg tab ORAL SCH ×2 (08:40→18:17)
[2018-10-23] MEDS: Heparin 5000 units/ml inj SUBQ SCH ×2 (08:40→21:02)
--- NOTE | 2018-10-23 11:02 | Pulmonology Progress Note ---
Assessment/Plan Problems: (1) Intractable nausea and vomiting (2) Hyperkalemia (3) hypertension (4) ESRD on dialysis (5) Anemia Assessment/Plan Echo noted, EF of 50%, PA pressure moderately increased by 40 troponin negative NPO for EGD got dialyzed yesterday Subjective ROS Limited/Unobtainable: No Interval Events: scheduled for EGD today, no other complains Constitutional: Reports: no symptoms HEENT: Repors: no symptoms Respiratory: Reports: no symptoms Allergies: Coded Allergies: No Known Allergies (Unverified , 01/12/14) Objective Last 24 Hour Vital Signs Date Time Temp Pulse Resp B/P (MAP) Pulse Ox O2 Delivery O2 Flow Rate FiO2 10/23/18 09:00 Room Air 10/23/18 08:40 75 155/101 10/23/18 08:39 75 155/101 10/23/18 08:00 98.4 75 21 155/101 (119) 100 10/23/18 05:30 142/86 10/23/18 04:00 97.0 68 17 142/86 (104) 98 10/23/18 03:46 79 10/23/18 00:00 98.1 73 19 156/91 (112) 99 10/22/18 23:29 68 10/22/18 21:18 140/88 10/22/18 21:00 Room Air 10/22/18 20:00 98.3 72 20 140/88 (105) 98 10/22/18 19:32 77 10/22/18 18:11 97.7 10/22/18 17:40 71 162/89 10/22/18 16:49 71 162/89 10/22/18 16:00 71 10/22/18 16:00 97.7 66 20 162/89 (113) 98 10/22/18 16:00 Room Air 10/22/18 15:00 142/89 (106) 10/22/18 12:00 97.7 72 20 180/116 (137) 99 10/22/18 12:00 Room Air 10/22/18 12:00 65 10/22/18 11:32 180/116 Intake and Output 10/22/18 10/23/18 19:00 07:00 Intake Total 260 ml 300 ml Output Total 3000 ml Balance -2740 ml 300 ml Intake Oral 260 ml 300 ml Hemodialysis UF 3000 ml General Appearance: cachetic HEENT: normocephalic, atraumatic Respiratory/Chest: chest wall non-tender, lungs clear Breasts: no masses Cardiovascular: normal rate Abdomen: normal bowel sounds, no organomegaly Extremities: no cyanosis, no clubbing Skin: no rash Laboratory Tests 10/23/18 04:20: White Blood Count 4.0L, Red Blood Count 4.91, Hemoglobin 11.2L, Hematocrit 36.7L , Mean Corpuscular Volume 75L, Mean Corpuscular Hemoglobin 22.7L, Mean Corpuscular Hemoglobin Concent 30.4L, Red Cell Distribution Width 17.9H, Platelet Count 138L, Mean Platelet Volume 7.0, Neutrophils (%) (Auto) 58.5, Lymphocytes (%) (Auto) 26.4, Monocytes (%) (Auto) 9.8, Eosinophils (%) (Auto) 2.9, Basophils (%) (Auto) 2.5H, Sodium Level 137, Potassium Level 4.6, Chloride Level 98, Carbon Dioxide Level 28, Anion Gap 11, Blood Urea Nitrogen 43H, Creatinine 10.0H, Estimat Glomerular Filtration Rate 5.1, Glucose Level 101, Calcium Level 9.1, Iron Level 98, Total Iron Binding Capacity 129L, Percent Iron Saturation 76H, Unsaturated Iron Binding 31L, Ferritin 1297H, Total Bilirubin 0.4, Aspartate Amino Transf (AST/SGOT) 14L, Alanine Aminotransferase ( ALT/SGPT) 20, Alkaline Phosphatase 67, Troponin I 0.046, Total Protein 7.0, Albumin 3.5, Globulin 3.5, Albumin/Globulin Ratio 1.0, Triglycerides Level 130, Cholesterol Level 177, LDL Cholesterol 112H, HDL Cholesterol 42, Cholesterol/ HDL Ratio 4.2, Carcinoembryonic Antigen [Pending], Vitamin B12 Level 972, Folate 7.4L, Thyroid Stimulating Hormone (TSH) 4.234H 10/23/18 05:00: Hemoglobin A1c 5.2, Uric Acid 4.2, Phosphorus Level 7.0H, Magnesium Level 2.0, Gamma Glutamyl Transpeptidase 10 Current Medications Medications (Trade) Dose Ordered Sig/Rajwinder Route PRN Reason Start Time Stop Time Status Last Admin Dose Admin Acetaminophen (Tylenol) 650 mg Q4H PRN ORAL Fever 10/21/18 19:00 11/20/18 18:59 Albuterol/ Ipratropium (Albuterol/ Ipratropium) 3 ml Q4H PRN HHN Shortness of Breath 10/21/18 19:00 10/26/18 18:59 Amlodipine Besylate (Norvasc) 10 mg DAILY ORAL 10/23/18 09:00 11/22/18 08:59 10/23/18 08:39 Cinacalcet (Sensipar) 60 mg BID ORAL 10/22/18 09:00 11/21/18 08:59 10/23/18 08:39 Clonidine HCl (Catapres TTS-3) 1 patch QWEEK TDERMAL 10/21/18 20:00 11/20/18 19:59 10/21/18 21:00 Clonidine HCl (Catapres Tab) 0.1 mg Q4H PRN ORAL For High Blood Pressure 10/22/18 01:15 11/21/18 01:14 10/22/18 11:32 Dextrose (Dextrose 50%) 25 ml Q30M PRN IV Hypoglycemia 10/21/18 19:00 11/20/18 18:59 Dextrose (Dextrose 50%) 50 ml Q30M PRN IV Hypoglycemia 10/21/18 19:00 11/20/18 18:59 Docusate Sodium (Colace) 100 mg THREE TIMES A DAY ORAL 10/22/18 18:00 11/21/18 17:59 10/23/18 08:39 Heparin Sodium (Porcine) (Heparin 5000 units/ml) 5,000 units EVERY 12 HOURS SUBQ 10/21/18 21:00 11/20/18 20:59 10/22/18 21:19 Hydralazine HCl (Apresoline) 25 mg Q8HR ORAL 10/22/18 22:00 11/21/18 21:59 10/23/18 05:30 Labetalol HCl (Normodyne) 200 mg BID ORAL 10/22/18 09:00 11/21/18 08:59 10/23/18 08:40 Morphine Sulfate (Morphine Sulfate) 2 mg Q4H PRN IVP For Pain 10/22/18 01:15 10/29/18 01:14 10/23/18 00:47 Ondansetron HCl (Zofran) 4 mg Q6H PRN IVP Nausea & Vomiting 10/21/18 19:00 11/20/18 18:59 10/22/18 01:46 Pantoprazole (Protonix) 40 mg DAILY ORAL 10/23/18 09:00 11/22/18 08:59 10/23/18 08:39 Polyethylene Glycol (Miralax) 17 gm DAILYPRN PRN ORAL Constipation 10/21/18 19:00 11/20/18 18:59 Sevelamer Carbonate (Renvela) 1,600 mg THREE TIMES A DAY ORAL 10/22/18 18:00 11/21/18 17:59 10/22/18 17:40 Sucralfate (Carafate) 1 gm FOUR TIMES A DAY ORAL 10/22/18 18:00 11/21/18 17:59 10/23/18 08:39 Temazepam (Restoril) 15 mg HSPRN PRN ORAL Insomnia 10/21/18 19:00 10/28/18 18:59 Moreno Jaime MD Oct 23, 2018 11:02
[2018-10-23] MEDS ORDERED: Atropine Inj 1mg/10ml Syr IV PRN (11:15)
[2018-10-23] MEDS ORDERED: fentaNYL 100 mcg/2 mL IV PRN (11:15)
[2018-10-23] MEDS ORDERED: DiphenhydrAMINE 50mg/ml Inj IVP PRN (11:15)
[2018-10-23] MEDS ORDERED: Midazolam 2mg/2ml Inj IVP PRN (11:15)
[2018-10-23 12:00] VITALS: BP_SYST 125; BP_SYST 155; BP_DIAS 101; BP_DIAS 73
--- NOTE | 2018-10-23 13:40 | NUR ---
NURSE NOTES: Per Geovanny of GI lab, EGD is cancelled today. Postpone until tomorrow AM. Patient may resume renal PO diet. NPO midnight. Orders entered, noted, and carried out. will continue to monitor patient.
--- NOTE | 2018-10-23 13:58 | General Progress Note ---
Assessment/Plan Problem List: (1) hypertension (2) Anemia ICD Codes: D64.9 - Anemia, unspecified SNOMED: 188526064 (3) ESRD on dialysis ICD Codes: N18.6 - End stage renal disease; Z99.2 - Dependence on renal dialysis SNOMED: 276363510 Assessment/Plan replace folate fu stool ob stable H&H pending EGD in am Subjective ROS Limited/Unobtainable: Yes Allergies: Coded Allergies: No Known Allergies (Unverified , 01/12/14) Objective Last 24 Hour Vital Signs Date Time Temp Pulse Resp B/P (MAP) Pulse Ox O2 Delivery O2 Flow Rate FiO2 10/23/18 12:00 98.1 70 20 125/73 (90) 95 10/23/18 12:00 62 10/23/18 09:00 Room Air 10/23/18 08:40 75 155/101 10/23/18 08:39 75 155/101 10/23/18 08:00 89 10/23/18 08:00 98.4 75 21 155/101 (119) 100 10/23/18 05:30 142/86 10/23/18 04:00 97.0 68 17 142/86 (104) 98 10/23/18 03:46 79 10/23/18 00:00 98.1 73 19 156/91 (112) 99 10/22/18 23:29 68 10/22/18 21:18 140/88 10/22/18 21:00 Room Air 10/22/18 20:00 98.3 72 20 140/88 (105) 98 10/22/18 19:32 77 10/22/18 18:11 97.7 10/22/18 17:40 71 162/89 10/22/18 16:49 71 162/89 10/22/18 16:00 71 10/22/18 16:00 97.7 66 20 162/89 (113) 98 10/22/18 16:00 Room Air 10/22/18 15:00 142/89 (106) Intake and Output 10/22/18 10/23/18 18:59 06:59 Intake Total 260 ml 300 ml Output Total 3000 ml Balance -2740 ml 300 ml Intake Oral 260 ml 300 ml Hemodialysis UF 3000 ml Laboratory Tests 10/23/18 04:20: White Blood Count 4.0L, Red Blood Count 4.91, Hemoglobin 11.2L, Hematocrit 36.7L , Mean Corpuscular Volume 75L, Mean Corpuscular Hemoglobin 22.7L, Mean Corpuscular Hemoglobin Concent 30.4L, Red Cell Distribution Width 17.9H, Platelet Count 138L, Mean Platelet Volume 7.0, Neutrophils (%) (Auto) 58.5, Lymphocytes (%) (Auto) 26.4, Monocytes (%) (Auto) 9.8, Eosinophils (%) (Auto) 2.9, Basophils (%) (Auto) 2.5H, Sodium Level 137, Potassium Level 4.6, Chloride Level 98, Carbon Dioxide Level 28, Anion Gap 11, Blood Urea Nitrogen 43H, Creatinine 10.0H, Estimat Glomerular Filtration Rate 5.1, Glucose Level 101, Calcium Level 9.1, Iron Level 98, Total Iron Binding Capacity 129L, Percent Iron Saturation 76H, Unsaturated Iron Binding 31L, Ferritin 1297H, Total Bilirubin 0.4, Aspartate Amino Transf (AST/SGOT) 14L, Alanine Aminotransferase ( ALT/SGPT) 20, Alkaline Phosphatase 67, Troponin I 0.046, Total Protein 7.0, Albumin 3.5, Globulin 3.5, Albumin/Globulin Ratio 1.0, Triglycerides Level 130, Cholesterol Level 177, LDL Cholesterol 112H, HDL Cholesterol 42, Cholesterol/ HDL Ratio 4.2, Carcinoembryonic Antigen [Pending], Vitamin B12 Level 972, Folate 7.4L, Thyroid Stimulating Hormone (TSH) 4.234H 10/23/18 05:00: Hemoglobin A1c 5.2, Uric Acid 4.2, Phosphorus Level 7.0H, Magnesium Level 2.0, Gamma Glutamyl Transpeptidase 10 Height (Feet): 5 Height (Inches): 6.00 Weight (Pounds): 180 General Appearance: alert EENT: normal ENT inspection Neck: supple Cardiovascular: normal rate Respiratory/Chest: lungs clear Abdomen: non tender, soft, hypoactive bowel sounds Extremities: non-tender Dc Ruiz MD Oct 23, 2018 13:58
--- NOTE | 2018-10-23 15:52 | Nephrology Progress Note ---
Assessment/Plan Problem List: (1) ESRD on dialysis (2) Hyperkalemia, diminished renal excretion (3) Acute on chronic Anemia due to acute blood loss (4) Hypertensive kidney disease Assessment 1. Intractable nausea and vomiting with abdominal pain, possible due to gastroenteritis. 2. Hyperkalemia. 3. End-stage renal disease, on hemodialysis. 4. Hypertension. Hypertensive Kidney disease 5. Osteoporosis. 6. Anemia of CKD Plan HD in AM Per PMD keep BP in check, adjust BP meds Anemia rivera Folic supplement Subjective ROS Limited/Unobtainable: No Constitutional: Reports: malaise Objective Objective Last 24 Hour Vital Signs Date Time Temp Pulse Resp B/P (MAP) Pulse Ox O2 Delivery O2 Flow Rate FiO2 10/23/18 14:20 125/73 10/23/18 12:00 98.1 70 20 125/73 (90) 95 10/23/18 12:00 62 10/23/18 09:00 Room Air 10/23/18 08:40 75 155/101 10/23/18 08:39 75 155/101 10/23/18 08:00 89 10/23/18 08:00 98.4 75 21 155/101 (119) 100 10/23/18 05:30 142/86 10/23/18 04:00 97.0 68 17 142/86 (104) 98 10/23/18 03:46 79 10/23/18 00:00 98.1 73 19 156/91 (112) 99 10/22/18 23:29 68 10/22/18 21:18 140/88 10/22/18 21:00 Room Air 10/22/18 20:00 98.3 72 20 140/88 (105) 98 10/22/18 19:32 77 10/22/18 18:11 97.7 10/22/18 17:40 71 162/89 10/22/18 16:49 71 162/89 10/22/18 16:00 71 10/22/18 16:00 97.7 66 20 162/89 (113) 98 10/22/18 16:00 Room Air Intake and Output 10/22/18 10/23/18 18:59 06:59 Intake Total 260 ml 300 ml Output Total 3000 ml Balance -2740 ml 300 ml Intake Oral 260 ml 300 ml Hemodialysis UF 3000 ml Laboratory Tests 10/23/18 04:20: White Blood Count 4.0L, Red Blood Count 4.91, Hemoglobin 11.2L, Hematocrit 36.7L , Mean Corpuscular Volume 75L, Mean Corpuscular Hemoglobin 22.7L, Mean Corpuscular Hemoglobin Concent 30.4L, Red Cell Distribution Width 17.9H, Platelet Count 138L, Mean Platelet Volume 7.0, Neutrophils (%) (Auto) 58.5, Lymphocytes (%) (Auto) 26.4, Monocytes (%) (Auto) 9.8, Eosinophils (%) (Auto) 2.9, Basophils (%) (Auto) 2.5H, Sodium Level 137, Potassium Level 4.6, Chloride Level 98, Carbon Dioxide Level 28, Anion Gap 11, Blood Urea Nitrogen 43H, Creatinine 10.0H, Estimat Glomerular Filtration Rate 5.1, Glucose Level 101, Calcium Level 9.1, Iron Level 98, Total Iron Binding Capacity 129L, Percent Iron Saturation 76H, Unsaturated Iron Binding 31L, Ferritin 1297H, Total Bilirubin 0.4, Aspartate Amino Transf (AST/SGOT) 14L, Alanine Aminotransferase ( ALT/SGPT) 20, Alkaline Phosphatase 67, Troponin I 0.046, Total Protein 7.0, Albumin 3.5, Globulin 3.5, Albumin/Globulin Ratio 1.0, Triglycerides Level 130, Cholesterol Level 177, LDL Cholesterol 112H, HDL Cholesterol 42, Cholesterol/ HDL Ratio 4.2, Carcinoembryonic Antigen [Pending], Vitamin B12 Level 972, Folate 7.4L, Thyroid Stimulating Hormone (TSH) 4.234H 10/23/18 05:00: Hemoglobin A1c 5.2, Uric Acid 4.2, Phosphorus Level 7.0H, Magnesium Level 2.0, Gamma Glutamyl Transpeptidase 10 Height (Feet): 5 Height (Inches): 6.00 Weight (Pounds): 180 General Appearance: no apparent distress Objective no change Edgard Vega MD Oct 23, 2018 15:52
[2018-10-23 16:00] VITALS: BP 143/83
--- NOTE | 2018-10-23 16:22 | NUR ---
NURSE NOTES: Called [facility] Nephrology hemodialysis and spoke with Ortega regarding hemodialysis order per Dr. Vega. Ortega of [facility] Nephrology acknowledged and HD nurse will be in tomorrow AM, 10/24/2018.
--- NOTE | 2018-10-23 18:18 | Internal Med Progress Note ---
Subjective Date of Service: Oct 23, 2018 Physician Name Moura,Filipe Attending Physician Alen Barragan MD Current Medications Medications (Trade) Dose Ordered Sig/Rajwinder Route PRN Reason Start Time Stop Time Status Last Admin Dose Admin Acetaminophen (Tylenol) 650 mg Q4H PRN ORAL Fever 10/21/18 19:00 11/20/18 18:59 Albuterol/ Ipratropium (Albuterol/ Ipratropium) 3 ml Q4H PRN HHN Shortness of Breath 10/21/18 19:00 10/26/18 18:59 Amlodipine Besylate (Norvasc) 10 mg DAILY ORAL 10/23/18 09:00 11/22/18 08:59 10/23/18 08:39 Cinacalcet (Sensipar) 60 mg BID ORAL 10/22/18 09:00 11/21/18 08:59 10/23/18 08:39 Clonidine HCl (Catapres TTS-3) 1 patch QWEEK TDERMAL 10/21/18 20:00 11/20/18 19:59 10/21/18 21:00 Clonidine HCl (Catapres Tab) 0.1 mg Q4H PRN ORAL For High Blood Pressure 10/22/18 01:15 11/21/18 01:14 10/22/18 11:32 Dextrose (Dextrose 50%) 25 ml Q30M PRN IV Hypoglycemia 10/21/18 19:00 11/20/18 18:59 Dextrose (Dextrose 50%) 50 ml Q30M PRN IV Hypoglycemia 10/21/18 19:00 11/20/18 18:59 Docusate Sodium (Colace) 100 mg THREE TIMES A DAY ORAL 10/22/18 18:00 11/21/18 17:59 10/23/18 08:39 Folic Acid (Folate) 3 mg DAILY ORAL 10/24/18 09:00 11/23/18 08:59 Heparin Sodium (Porcine) (Heparin 5000 units/ml) 5,000 units EVERY 12 HOURS SUBQ 10/21/18 21:00 11/20/18 20:59 10/22/18 21:19 Hydralazine HCl (Apresoline) 25 mg Q8HR ORAL 10/22/18 22:00 11/21/18 21:59 10/23/18 14:20 Labetalol HCl (Normodyne) 200 mg BID ORAL 10/22/18 09:00 11/21/18 08:59 10/23/18 08:40 Morphine Sulfate (Morphine Sulfate) 2 mg Q4H PRN IVP For Pain 10/22/18 01:15 10/29/18 01:14 10/23/18 15:41 Ondansetron HCl (Zofran) 4 mg Q6H PRN IVP Nausea & Vomiting 10/21/18 19:00 11/20/18 18:59 10/22/18 01:46 Pantoprazole (Protonix) 40 mg Q12HR ORAL 10/23/18 21:00 11/22/18 08:59 Polyethylene Glycol (Miralax) 17 gm DAILYPRN PRN ORAL Constipation 10/21/18 19:00 11/20/18 18:59 Sevelamer Carbonate (Renvela) 2,400 mg THREE TIMES A DAY ORAL 10/23/18 18:00 11/21/18 17:59 Sucralfate (Carafate) 1 gm FOUR TIMES A DAY ORAL 10/22/18 18:00 11/21/18 17:59 10/23/18 08:39 Temazepam (Restoril) 15 mg HSPRN PRN ORAL Insomnia 10/21/18 19:00 10/28/18 18:59 Allergies: Coded Allergies: No Known Allergies (Unverified , 01/12/14) ROS Limited/Unobtainable: No Constitutional: Reports: no symptoms HEENT: Reports: no symptoms Cardiovascular: Reports: no symptoms Respiratory: Reports: no symptoms Gastrointestinal/Abdominal: Reports: abdominal pain, nausea, vomiting Genitourinary: Reports: no symptoms Neurologic/Psychiatric: Reports: no symptoms Subjective 43 YO F with ESRD on HD admitted with intractable nausea and vomiting. Cover for Int med-DR Barragan. ADEBAYO. Await EGD 10/24/18 Objective Last Vital Signs Date Time Temp Pulse Resp B/P (MAP) Pulse Ox O2 Delivery O2 Flow Rate FiO2 10/23/18 14:20 125/73 10/23/18 12:00 98.1 70 20 95 10/23/18 09:00 Room Air Laboratory Tests Test 10/23/18 04:20 10/23/18 05:00 White Blood Count 4.0 K/UL (4.8-10.8) L Red Blood Count 4.91 M/UL (4.20-5.40) Hemoglobin 11.2 G/DL (12.0-16.0) L Hematocrit 36.7 % (37.0-47.0) L Mean Corpuscular Volume 75 FL (80-99) L Mean Corpuscular Hemoglobin 22.7 PG (27.0-31.0) L Mean Corpuscular Hemoglobin Concent 30.4 G/DL (32.0-36.0) L Red Cell Distribution Width 17.9 % (11.6-14.8) H Platelet Count 138 K/UL (150-450) L Mean Platelet Volume 7.0 FL (6.5-10.1) Neutrophils (%) (Auto) 58.5 % (45.0-75.0) Lymphocytes (%) (Auto) 26.4 % (20.0-45.0) Monocytes (%) (Auto) 9.8 % (1.0-10.0) Eosinophils (%) (Auto) 2.9 % (0.0-3.0) Basophils (%) (Auto) 2.5 % (0.0-2.0) H Sodium Level 137 MMOL/L (136-145) Potassium Level 4.6 MMOL/L (3.5-5.1) Chloride Level 98 MMOL/L (98-107) Carbon Dioxide Level 28 MMOL/L (21-32) Anion Gap 11 mmol/L (5-15) Blood Urea Nitrogen 43 mg/dL (7-18) H Creatinine 10.0 MG/DL (0.55-1.30) H Estimat Glomerular Filtration Rate 5.1 mL/min (>60) Glucose Level 101 MG/DL (74-106) Calcium Level 9.1 MG/DL (8.5-10.1) Iron Level 98 ug/dL (50-175) Total Iron Binding Capacity 129 ug/dL (250-450) L Percent Iron Saturation 76 % (15-50) H Unsaturated Iron Binding 31 ug/dL (112-346) L Ferritin 1297 NG/ML (8-388) H Total Bilirubin 0.4 MG/DL (0.2-1.0) Aspartate Amino Transf (AST/SGOT) 14 U/L (15-37) L Alanine Aminotransferase (ALT/SGPT) 20 U/L (12-78) Alkaline Phosphatase 67 U/L (46-116) Troponin I 0.046 ng/mL (0.000-0.056) Total Protein 7.0 G/DL (6.4-8.2) Albumin 3.5 G/DL (3.4-5.0) Globulin 3.5 g/dL Albumin/Globulin Ratio 1.0 (1.0-2.7) Triglycerides Level 130 MG/DL (30-150) Cholesterol Level 177 MG/DL (< 200) LDL Cholesterol 112 mg/dL (<100) H HDL Cholesterol 42 MG/DL (40-60) Cholesterol/HDL Ratio 4.2 (3.3-4.4) Carcinoembryonic Antigen Pending Vitamin B12 Level 972 PG/ML (193-986) Folate 7.4 NG/ML (8.6-58.9) L Thyroid Stimulating Hormone (TSH) 4.234 uiU/mL (0.358-3.740) Hemoglobin A1c 5.2 % (4.3-6.0) Uric Acid 4.2 MG/DL (2.6-7.2) Phosphorus Level 7.0 MG/DL (2.5-4.9) H Magnesium Level 2.0 MG/DL (1.8-2.4) Gamma Glutamyl Transpeptidase 10 U/L (5-85) Intake and Output 10/22/18 10/23/18 19:00 07:00 Intake Total 260 ml 300 ml Output Total 3000 ml Balance -2740 ml 300 ml Intake Oral 260 ml 300 ml Hemodialysis UF 3000 ml Objective Objective GENERAL: The patient is awake and responsive, in no acute distress. HEAD AND NECK: Pupils are equal and reactive to light. Extraocular movements are intact. Neck was supple. No JVD. LUNGS: Good air entry. No wheezing or rales. HEART: S1 and S2. Distant heart sounds. No gallops. ABDOMEN: Soft. epigastric abdominal pain No rebound tenderness. No fluid shift. Mildly obese. EXTREMITIES: No cyanosis, clubbing, or edema. Left upper extremity has AV fistula. NEUROLOGIC: Cranial nerves II through XII grossly intact. Motor is 5/5 in all extremities. Gait is intact. RECTAL: Refused and deferred. GENITOURINARY: Refused and deferred. PSYCHIATRIC: Mood and affect is intact. Assessment/Plan Assessment/Plan Assessment/Plan Assessment/Plan Assessment/Plan ASSESSMENT: 1. Intractable nausea and vomiting with epigastric abdominal pain, possible due to gastroenteritis Vs. PUD. 2. Hyperkalemia. 3. End-stage renal disease, on hemodialysis. 4. Hypertension. 5. Osteoporosis. 5. Obesity. PLAN: 1. in monitored unit. 2. Follow up laboratory. 3. Monitor the culture. 4. Code status is Full Code. 5. Pain medication. 6. Advance the diet as tolerated. 7. GI consult with Dr. Andre. 8. Endoscopy scheduled 10/24/18 Filipe Moura MD Oct 23, 2018 18:18
--- NOTE | 2018-10-23 19:19 | Cardiology Progress Note ---
Assessment/Plan Assessment/Plan [id number] Objective Last 24 Hour Vital Signs Date Time Temp Pulse Resp B/P (MAP) Pulse Ox O2 Delivery O2 Flow Rate FiO2 10/23/18 18:17 71 143/73 10/23/18 16:00 98.2 71 20 143/83 (103) 99 10/23/18 16:00 65 10/23/18 14:20 125/73 10/23/18 12:00 98.1 70 20 125/73 (90) 95 10/23/18 12:00 62 10/23/18 09:00 Room Air 10/23/18 08:40 75 155/101 10/23/18 08:39 75 155/101 10/23/18 08:00 89 10/23/18 08:00 98.4 75 21 155/101 (119) 100 10/23/18 05:30 142/86 10/23/18 04:00 97.0 68 17 142/86 (104) 98 10/23/18 03:46 79 10/23/18 00:00 98.1 73 19 156/91 (112) 99 10/22/18 23:29 68 10/22/18 21:18 140/88 10/22/18 21:00 Room Air 10/22/18 20:00 98.3 72 20 140/88 (105) 98 10/22/18 19:32 77 Intake and Output 10/22/18 10/23/18 19:00 07:00 Intake Total 260 ml 300 ml Output Total 3000 ml Balance -2740 ml 300 ml Intake Oral 260 ml 300 ml Hemodialysis UF 3000 ml Laboratory Tests Test 10/23/18 04:20 10/23/18 05:00 White Blood Count 4.0 K/UL (4.8-10.8) L Red Blood Count 4.91 M/UL (4.20-5.40) Hemoglobin 11.2 G/DL (12.0-16.0) L Hematocrit 36.7 % (37.0-47.0) L Mean Corpuscular Volume 75 FL (80-99) L Mean Corpuscular Hemoglobin 22.7 PG (27.0-31.0) L Mean Corpuscular Hemoglobin Concent 30.4 G/DL (32.0-36.0) L Red Cell Distribution Width 17.9 % (11.6-14.8) H Platelet Count 138 K/UL (150-450) L Mean Platelet Volume 7.0 FL (6.5-10.1) Neutrophils (%) (Auto) 58.5 % (45.0-75.0) Lymphocytes (%) (Auto) 26.4 % (20.0-45.0) Monocytes (%) (Auto) 9.8 % (1.0-10.0) Eosinophils (%) (Auto) 2.9 % (0.0-3.0) Basophils (%) (Auto) 2.5 % (0.0-2.0) H Sodium Level 137 MMOL/L (136-145) Potassium Level 4.6 MMOL/L (3.5-5.1) Chloride Level 98 MMOL/L (98-107) Carbon Dioxide Level 28 MMOL/L (21-32) Anion Gap 11 mmol/L (5-15) Blood Urea Nitrogen 43 mg/dL (7-18) H Creatinine 10.0 MG/DL (0.55-1.30) H Estimat Glomerular Filtration Rate 5.1 mL/min (>60) Glucose Level 101 MG/DL (74-106) Calcium Level 9.1 MG/DL (8.5-10.1) Iron Level 98 ug/dL (50-175) Total Iron Binding Capacity 129 ug/dL (250-450) L Percent Iron Saturation 76 % (15-50) H Unsaturated Iron Binding 31 ug/dL (112-346) L Ferritin 1297 NG/ML (8-388) H Total Bilirubin 0.4 MG/DL (0.2-1.0) Aspartate Amino Transf (AST/SGOT) 14 U/L (15-37) L Alanine Aminotransferase (ALT/SGPT) 20 U/L (12-78) Alkaline Phosphatase 67 U/L (46-116) Troponin I 0.046 ng/mL (0.000-0.056) Total Protein 7.0 G/DL (6.4-8.2) Albumin 3.5 G/DL (3.4-5.0) Globulin 3.5 g/dL Albumin/Globulin Ratio 1.0 (1.0-2.7) Triglycerides Level 130 MG/DL (30-150) Cholesterol Level 177 MG/DL (< 200) LDL Cholesterol 112 mg/dL (<100) H HDL Cholesterol 42 MG/DL (40-60) Cholesterol/HDL Ratio 4.2 (3.3-4.4) Carcinoembryonic Antigen Pending Vitamin B12 Level 972 PG/ML (193-986) Folate 7.4 NG/ML (8.6-58.9) L Thyroid Stimulating Hormone (TSH) 4.234 uiU/mL (0.358-3.740) Hemoglobin A1c 5.2 % (4.3-6.0) Uric Acid 4.2 MG/DL (2.6-7.2) Phosphorus Level 7.0 MG/DL (2.5-4.9) H Magnesium Level 2.0 MG/DL (1.8-2.4) Gamma Glutamyl Transpeptidase 10 U/L (5-85) Magdaleno Ashley MD Oct 23, 2018 19:18
--- NOTE | 2018-10-23 19:30 | NUR ---
HAND-OFF: Report given to MAY Marinelli.
[2018-10-23 20:00] VITALS: BP 148/82
--- NOTE | 2018-10-23 21:05 | NUR ---
NURSE NOTES: Received bedside report from MAY Marinelli.Patient stable,A&Ox4,SR on cardiac care unit nurse,clear sounds on auscultation,BS active in all quadrants,IV asymptomatic,intact,no c/o pain or respiratory distress noted,call light within a reach,bed secured,family at a bedside.Will continue to monitor and follow POC.
[2018-10-24] VITALS (10 sets, daily range): BP systolic 137–179; BP diastolic 74–99
--- NOTE | 2018-10-24 03:10 | NUR ---
NURSE NOTES: Transferred patient to Tele 203-1,patient stable,no c/o pain,no respiratory distress noted,tolerated r/air well,belongings list signed,report given to MAY Pérez
--- NOTE | 2018-10-24 03:30 | NUR ---
NURSE NOTES: Report received from MAY Winston. Pt is is in stable condition.Bed in lowest position, bed brakes engaged, call light wuthin reach. WIll continue to monitor.
--- NOTE | 2018-10-24 04:36 | Consultation ---
DATE OF CONSULTATION: 10/23/2018 CARDIAC CONSULTATION CONSULTING PHYSICIAN: Magdaleno Ashley M.D. REFERRING PHYSICIAN: Moreno Jaime M.D. REASON FOR REFERRAL: Abnormal cardiac enzymes. HISTORY OF PRESENT ILLNESS: This is a 43-year-old female with history of hypertension, end-stage renal disease on hemodialysis, came in because of recurrent abdominal pain, nausea and vomiting, and has been admitted to the hospital. Nausea and vomiting improved already. The patient is scheduled to undergo endoscopy. This consultation was requested as one of the several blood testing for cardiac enzymes, one was abnormal. The patient denies any pain, pressure, tightness, heaviness in the chest. She does have some shortness of breath for a couple of nights, in the middle of the night she would get up. She denies missing dialysis session. There is no palpitation, no dizziness, no lightheadedness except for occasional basis. There is no PND, otherwise no orthopnea. PAST MEDICAL HISTORY: Positive for history of high blood pressure. There is no diabetes. No heart attack. No cancer. No stroke. No hepatitis or tuberculosis. No asthma or emphysema. She does have a prior history of ulcers. No liver problems, thyroid problems, anemia, arthritis, HIV, AIDS, blood clots anywhere. Her past medical history is otherwise as mentioned end-stage renal disease, history of osteoporosis, and history of AV shunt. ALLERGIES: She is not allergic to any medications. SOCIAL HISTORY: She used to smoke, but quit that 5 or 6 years ago. No alcohol. No drugs. REVIEW OF SYSTEMS: GASTROINTESTINAL: As mentioned in the history of present illness with nausea and vomiting. No diarrhea. No bloody or black stools. GENITOURINARY: She does not make any urine. PULMONARY: Negative. CONSTITUTIONAL: Negative. NEUROLOGIC: Negative. PHYSICAL EXAMINATION: GENERAL: Shows to be middle-aged female, in no respiratory distress. NECK: Supple. No jugular venous distention. No abdominojugular reflux. LUNGS: Clear to auscultation and percussion. CARDIAC: S1 is normal. S2 is normal. Regular rate and rhythm. No heaves, thrills, gallops, rubs are noted. ABDOMEN: Soft, nontender. Positive bowel sounds. EXTREMITIES: There is no edema. NEUROLOGIC: She is awake, alert, responsive, in no apparent distress. LABORATORY AND DIAGNOSTIC DATA: White count of 4, hemoglobin 11.2, and platelet count of 138. Sodium is 137, potassium 4.6, chloride 98, bicarbonate 28, BUN 42, creatinine 10.0, and calcium is 7. Iron is 98. Liver function tests are normal, total cholesterol 177 with LDL of 112. TSH of 4.24, B12 of 972 and folic acid of 7.4. Her cardiac enzymes, she has had four checked, last one was also abnormal, not sure if this is actually even accurate. ASSESSMENT AND PLAN: 1. Abnormal cardiac enzymes. 2. End-stage renal disease, on hemodialysis. 3. Hypertension history. 4. Abdominal pain with nausea and vomiting. This patient was seen in cardiac consultation. The patient does not have any chest pains. Her preliminary echocardiogram shows normal left ventricular systolic function. The abnormal cardiac enzyme 1/4 levels it is likely to be inaccurate as the cardiac enzymes should not be correcting that fast if there was any acute injury. The EKG is not available for review. I have ordered telemetry, it is negative. I will follow the patient along. Magdaleno Ashley M.D. : Negro JOB#: [id number] CC:
[2018-10-24] MEDS: HydrALAZINE 25mg tab ORAL SCH ×3 (06:43→23:10)
[2018-10-24] MEDS: Morphine Sulfate 2mg/ml Inj(IV/IM USE ONLY) IVP PRN ×2 (06:45→11:13)
[2018-10-24] MEDS ORDERED: Albuterol/Ipratropium 3ml neb HHN PRN ×2 (07:00→19:00)
--- NOTE | 2018-10-24 07:10 | NUR ---
HAND-OFF: Report given to Jessee. Plan of care endorsed.
--- NOTE | 2018-10-24 07:15 | NUR ---
NURSE NOTES: Pt received from MAY Hoang alert and oriented x4 with no s/s of acute distress. Pt was being picked up for EGD during rounds. IV site asymptomatic and patent, on saline lock. Bed in lowest position, call light and belongings within reach.
[2018-10-24] MEDS ORDERED: Midazolam 2mg/2ml Inj ONE (07:20)
[2018-10-24] MEDS ORDERED: fentaNYL 100 mcg/2 mL IV ONE (07:20)
[2018-10-24] MEDS ORDERED: Propofol 200mg/20ml IV ONE (07:20)
--- NOTE | 2018-10-24 07:26 | Pre-Procedure Note/Attestation ---
Pre-Procedure Note/Attestation Complete Prior to Procedure Planned Procedure: not applicable Procedure Narrative: egd Indications for Procedure Pre-Operative Diagnosis: abd pain Attestation I attest that I discussed the nature of the procedure; its benefits; risks and complications; and alternatives (and the risks and benefits of such alternatives ), prior to the procedure, with the patient (or the patient's legal sales representative health insurance). I attest that, if there was a reasonable possibility of needing a blood transfusion, the patient (or the patient's legal sales representative health insurance) was given the [facility] standardized written summary, pursuant to the [place] Blood Safety Act ([place] Health and Safety Code # 1645, as amended). I attest that I re-evaluated the patient just prior to the surgery and that there has been no change in the patient's H&P, except as documented below: Dc Ruiz MD Oct 24, 2018 07:26
[2018-10-24 07:29] LABS: HEMATOCRIT 36.2 % (37.0-47.0); HEMOGLOBIN 11.1 G/DL (12.0-16.0); MEAN CORPUSCULAR VOLUME 75 FL (80-99); PLATELET COUNT 139 K/UL (150-450); RED BLOOD COUNT 4.84 M/UL (4.20-5.40); RED CELL DISTRIBUTION WIDTH 18.1 % (11.6-14.8); WHITE BLOOD COUNT 3.4 K/UL (4.8-10.8)
[2018-10-24] MEDS ORDERED: NS 500ML IVPB ONE (07:40)
[2018-10-24 07:46] LABS: ANION GAP 12 mmol/L (5-15); BLOOD UREA NITROGEN 57 mg/dL (7-18); CALCIUM 8.6 MG/DL (8.5-10.1); CARBON DIOXIDE 28 MMOL/L (21-32); CHLORIDE 96 MMOL/L (98-107); CREATININE 13.1 MG/DL (0.55-1.30); POTASSIUM 5.2 MMOL/L (3.5-5.1); SODIUM 136 MMOL/L (136-145)
--- NOTE | 2018-10-24 07:48 | General Progress Note ---
Assessment/Plan Problem List: (1) hypertension (2) Anemia ICD Codes: D64.9 - Anemia, unspecified SNOMED: 648967649 (3) ESRD on dialysis ICD Codes: N18.6 - End stage renal disease; Z99.2 - Dependence on renal dialysis SNOMED: 621233828 Assessment/Plan replace folate fu stool ob stable H&H pending EGD for today Subjective ROS Limited/Unobtainable: Yes Allergies: Coded Allergies: No Known Allergies (Unverified , 01/12/14) Objective Last 24 Hour Vital Signs Date Time Temp Pulse Resp B/P (MAP) Pulse Ox O2 Delivery O2 Flow Rate FiO2 10/24/18 06:43 170/89 10/24/18 04:00 98.3 62 19 170/89 (116) 100 10/24/18 00:00 75 10/24/18 00:00 98.8 62 20 145/78 (100) 100 10/23/18 21:16 148/82 10/23/18 21:00 Room Air 10/23/18 20:00 98.2 67 20 148/82 (104) 99 10/23/18 19:03 79 10/23/18 18:17 71 143/73 10/23/18 16:00 98.2 71 20 143/83 (103) 99 10/23/18 16:00 65 10/23/18 14:20 125/73 10/23/18 12:00 98.1 70 20 125/73 (90) 95 10/23/18 12:00 62 10/23/18 09:00 Room Air 10/23/18 08:40 75 155/101 10/23/18 08:39 75 155/101 10/23/18 08:00 89 10/23/18 08:00 98.4 75 21 155/101 (119) 100 Intake and Output 10/23/18 10/24/18 19:00 07:00 Intake Total 200 ml Balance 200 ml Intake Oral 200 ml # Voids 1 Laboratory Tests 10/24/18 06:55: White Blood Count 3.4L, Red Blood Count 4.84, Hemoglobin 11.1L, Hematocrit 36.2L , Mean Corpuscular Volume 75L, Mean Corpuscular Hemoglobin 22.8L, Mean Corpuscular Hemoglobin Concent 30.6L, Red Cell Distribution Width 18.1H, Platelet Count 139L, Mean Platelet Volume 9.5, Neutrophils (%) (Auto) , Lymphocytes (%) (Auto) , Monocytes (%) (Auto) , Eosinophils (%) (Auto) , Basophils (%) (Auto) , Neutrophils % (Manual) [Pending], Lymphocytes % (Manual) [Pending], Platelet Estimate [Pending], Platelet Morphology [Pending], Prothrombin Time [Pending], Prothromb Time International Ratio [Pending], Activated Partial Thromboplast Time [Pending], Sodium Level [Pending], Potassium Level [Pending], Chloride Level [Pending], Carbon Dioxide Level [ Pending], Blood Urea Nitrogen [Pending], Creatinine [Pending], Estimat Glomerular Filtration Rate [Pending], Glucose Level [Pending], Uric Acid [ Pending], Calcium Level [Pending], Phosphorus Level [Pending], Magnesium Level [ Pending], Total Bilirubin [Pending], Direct Bilirubin [Pending], Aspartate Amino Transf (AST/SGOT) [Pending], Alanine Aminotransferase (ALT/SGPT) [Pending] , Alkaline Phosphatase [Pending], Total Protein [Pending], Albumin [Pending] Height (Feet): 5 Height (Inches): 6.00 Weight (Pounds): 180 General Appearance: alert EENT: normal ENT inspection Neck: supple Cardiovascular: normal rate Respiratory/Chest: decreased breath sounds Abdomen: normal bowel sounds, non tender, soft Extremities: non-tender Dc Ruiz MD Oct 24, 2018 07:48
--- NOTE | 2018-10-24 07:49 | Anethesia Preoperative Eval ---
Anesthesia Pre-op PMH/ROS General Date of Evaluation: Oct 24, 2018 Time of Evaluation: 07:40 Anesthesiologist: Noreen ASA Score: ASA 3 Mallampati Score Class I : Soft palate, uvula, fauces, pillars visible Class II: Soft palate, uvula, fauces visible Class III: Soft palate, base of uvula visible Class IV: Only hard plate visible Mallampati Classification: Class III Surgeon: Sara Diagnosis: Abdominal pain Surgical Procedure: EGD Anesthesia History: none Family History: no anesthesia problems Allergies: Coded Allergies: No Known Allergies (Unverified , 01/12/14) Medications: see eMAR Patient NPO?: Yes Past Medical History Cardiovascular: Denies: HTN, CAD, MT, valve dz, arrhythmia, other Pulmonary: Reports: UMA; Denies: asthma, COPD, other Gastrointestinal/Genitourinary: Reports: GERD, ESRD - on HD; Denies: CRI, other Neurologic/Psychiatric: Reports: depression/anxiety; Denies: dementia, CVA, TIA, other Endocrine: Reports: hypothyroidism HEENT: Denies: cataract (L), cataract (R), glaucoma, [place] (L), [place] (R), other Hematology/Immune: Reports: anemia; Denies: DVT, bleeding disorder, other Musculoskeletal/Integumentary: Reports: DJD Other: other PMH Narrative: as above PSxH Narrative: see chart Anesthesia Pre-op Phys. Exam Physician Exam Last Vital Signs Date Time Temp Pulse Resp B/P (MAP) Pulse Ox O2 Delivery O2 Flow Rate FiO2 10/24/18 06:43 170/89 10/24/18 04:00 98.3 62 19 100 10/23/18 21:00 Room Air Constitutional: NAD Neurologic: CN 2-12 intact Cardiovascular: RRR Respiratory: CTA Gastrointestinal: S/NT/ND Airway Exam Mallampati Score: Class III MO: limited Neck: shiort Teeth: missing Dentures: no upper, no lower Anesthesia Pre-op A/P Labs Hematology Test 10/24/18 06:55 White Blood Count 3.4 K/UL (4.8-10.8) L Red Blood Count 4.84 M/UL (4.20-5.40) Hemoglobin 11.1 G/DL (12.0-16.0) L Hematocrit 36.2 % (37.0-47.0) L Mean Corpuscular Volume 75 FL (80-99) L Mean Corpuscular Hemoglobin 22.8 PG (27.0-31.0) L Mean Corpuscular Hemoglobin Concent 30.6 G/DL (32.0-36.0) L Red Cell Distribution Width 18.1 % (11.6-14.8) H Platelet Count 139 K/UL (150-450) L Mean Platelet Volume 9.5 FL (6.5-10.1) Neutrophils (%) (Auto) % (45.0-75.0) Lymphocytes (%) (Auto) % (20.0-45.0) Monocytes (%) (Auto) % (1.0-10.0) Eosinophils (%) (Auto) % (0.0-3.0) Basophils (%) (Auto) % (0.0-2.0) Neutrophils % (Manual) Pending Lymphocytes % (Manual) Pending Platelet Estimate Pending Platelet Morphology Pending Coagulation Test 10/24/18 06:55 Prothrombin Time Pending Prothromb Time International Ratio Pending Activated Partial Thromboplast Time Pending Chemistry Test 10/24/18 06:55 Sodium Level Pending Potassium Level Pending Chloride Level Pending Carbon Dioxide Level Pending Blood Urea Nitrogen Pending Creatinine Pending Estimat Glomerular Filtration Rate Pending Glucose Level Pending Uric Acid Pending Calcium Level Pending Phosphorus Level Pending Magnesium Level Pending Total Bilirubin Pending Direct Bilirubin Pending Aspartate Amino Transf (AST/SGOT) Pending Alanine Aminotransferase (ALT/SGPT) Pending Alkaline Phosphatase Pending Total Protein Pending Albumin Pending Risk Assessment & Plan Assessment: ASA 3 Plan: MAC Status Change Before Surgery: No Pre-Antibiotics Drug: none Gurpreet Sorto MD Oct 24, 2018 07:49
[2018-10-24 07:55] LABS: ALANINE AMINOTRANSFERASE 19 U/L (12-78); ALBUMIN 3.5 G/DL (3.4-5.0); ALKALINE PHOSPHATASE 64 U/L (46-116); ASPARTATE AMINO TRANSFERASE 13 U/L (15-37); BILIRUBIN,DIRECT 0.1 MG/DL (0.0-0.3); BILIRUBIN,TOTAL 0.4 MG/DL (0.2-1.0); PHOSPHORUS 6.9 MG/DL (2.5-4.9)
[2018-10-24] MEDS ORDERED: fentaNYL 100 mcg/2 mL IV PRN (08:00)
--- NOTE | 2018-10-24 08:08 | Endoscopy Procedure Note ---
Endoscopy Procedure Note General Indication for Procedure: abd pain Procedures Performed: EGD Operative Findings/Diagnosis: gastritis Specimen: yes Pt Tolerated Procedure Well: Yes Estimated Blood Loss: none Anesthesia Anesthesiologist: yenni Anesthesia: MAC Inserted Devices Implant(s) used?: No GI Core Measures 50 yrs or older w/o bx or poly: Not Applicable 10yrs. F/U not recommended: Not Applicable Dc Ruiz MD Oct 24, 2018 08:08
--- NOTE | 2018-10-24 08:13 | Immediate Post-Op Evaluation ---
Immediate Post-Op Evalulation Immediate Post-Op Evalulation Procedure: EGD with Bx Date of Evaluation: Oct 24, 2018 Time of Evaluation: 08:12 IV Fluids: 100 Blood Products: none Estimated Blood Loss: none Urinary Output: none Blood Pressure Systolic: 176 Blood Pressure Diastolic: 86 Pulse Rate: 64 Respiratory Rate: 20 O2 Sat by Pulse Oximetry: 98 Temperature (Fahrenheit): 97.6 Pain Score (1-10): 1 Nausea: No Vomiting: No Complications none Patient Status: reacts, patent, none Hydration Status: adequate Gurpreet Sorto MD Oct 24, 2018 08:13
--- NOTE | 2018-10-24 08:53 | 48 Hour Post Anesthesia Eval ---
Post Anesthesia Evaluation Procedure: EGD with Bx Date of Evaluation: Oct 24, 2018 Time of Evaluation: 08:52 Blood Pressure Systolic: 168 0: 74 Pulse Rate: 68 Respiratory Rate: 20 Temperature (Fahrenheit): 97.5 O2 Sat by Pulse Oximetry: 98 Airway: patent Nausea: No Vomiting: No Pain Intensity: 1 Hydration Status: adequate Cardiopulmonary Status: stable Mental Status/LOC: patient returned to baseline Follow-up Care/Observations: n/a Post-Anesthesia Complications: none Follow-up care needed: N/A Gurpreet Sorto MD Oct 24, 2018 08:53
[2018-10-24] MEDS: Labetalol 200mg tab ORAL SCH ×2 (09:00→17:10)
[2018-10-24] MEDS ORDERED: Heparin 5000 units/ml inj SUBQ SCH (09:00)
[2018-10-24] MEDS ORDERED: Miralax 17gm pkt ORAL PRN (09:00)
[2018-10-24] MEDS: Docusate 100mg cap ORAL SCH ×3 (09:06→17:10)
[2018-10-24] MEDS: Sucralfate 1gm tab ORAL SCH ×4 (09:06→20:33)
[2018-10-24] MEDS: Sensipar 30mg Tab ORAL SCH ×2 (09:18→17:10)
--- NOTE | 2018-10-24 09:45 | NUR ---
NURSE NOTES: RN called [facility] for HD on 10/24 and spoke with Chu. Currently awaiting call back.
--- NOTE | 2018-10-24 11:30 | Pulmonology Progress Note ---
Assessment/Plan Problems: (1) Intractable nausea and vomiting (2) Hyperkalemia (3) hypertension (4) ESRD on dialysis (5) Anemia Assessment/Plan GI note appreciated epigastric pain seems to be skeletomuscular, dc morphin, try Motrin Echo noted, EF of 50%, PA pressure moderately increased by 40 troponin negative All medications and treatment were reviewed.surg social service consult med/surg Subjective ROS Limited/Unobtainable: No Constitutional: Reports: no symptoms HEENT: Repors: no symptoms Respiratory: Reports: no symptoms Cardiovascular: Reports: no symptoms Allergies: Coded Allergies: No Known Allergies (Unverified , 01/12/14) Objective Last 24 Hour Vital Signs Date Time Temp Pulse Resp B/P (MAP) Pulse Ox O2 Delivery O2 Flow Rate FiO2 10/24/18 09:00 Room Air 10/24/18 09:00 67 167/100 10/24/18 09:00 67 167/100 10/24/18 08:53 68 20 98 10/24/18 08:30 97.8 66 15 162/74 100 Room Air 10/24/18 08:22 64 19 177/89 100 Nasal Cannula 3 10/24/18 08:17 64 23 178/77 100 Nasal Cannula 3 10/24/18 08:13 64 20 98 10/24/18 08:12 97.2 65 17 179/89 100 Nasal Cannula 3 10/24/18 08:00 67 10/24/18 06:43 170/89 10/24/18 04:00 67 10/24/18 04:00 98.3 62 19 170/89 (116) 100 10/24/18 00:00 75 10/24/18 00:00 98.8 62 20 145/78 (100) 100 10/23/18 21:16 148/82 10/23/18 21:00 Room Air 10/23/18 20:00 98.2 67 20 148/82 (104) 99 10/23/18 19:03 79 10/23/18 18:17 71 143/73 10/23/18 16:00 98.2 71 20 143/83 (103) 99 10/23/18 16:00 65 10/23/18 14:20 125/73 10/23/18 12:00 98.1 70 20 125/73 (90) 95 10/23/18 12:00 62 Intake and Output 10/23/18 10/24/18 19:00 07:00 Intake Total 200 ml Balance 200 ml Intake Oral 200 ml # Voids 1 General Appearance: WD/WN HEENT: normocephalic, atraumatic Respiratory/Chest: chest wall non-tender, lungs clear Breasts: no masses Cardiovascular: normal peripheral pulses Abdomen: normal bowel sounds, soft, non tender Genitourinary: normal external genitalia Extremities: no cyanosis Skin: no rash 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 Laboratory Tests 10/24/18 06:55: White Blood Count 3.4L, Red Blood Count 4.84, Hemoglobin 11.1L, Hematocrit 36.2L , Mean Corpuscular Volume 75L, Mean Corpuscular Hemoglobin 22.8L, Mean Corpuscular Hemoglobin Concent 30.6L, Red Cell Distribution Width 18.1H, Platelet Count 139L, Mean Platelet Volume 9.5, Neutrophils (%) (Auto) , Lymphocytes (%) (Auto) , Monocytes (%) (Auto) , Eosinophils (%) (Auto) , Basophils (%) (Auto) , Neutrophils % (Manual) [Pending], Lymphocytes % (Manual) [Pending], Platelet Estimate [Pending], Platelet Morphology [Pending], Prothrombin Time 10.5, Prothromb Time International Ratio 1.0, Activated Partial Thromboplast Time 28, Sodium Level 136, Potassium Level 5.2H, Chloride Level 96L, Carbon Dioxide Level 28, Anion Gap 12, Blood Urea Nitrogen 57H, Creatinine 13.1H, Estimat Glomerular Filtration Rate 3.8, Glucose Level 89, Uric Acid 5.2, Calcium Level 8.6, Phosphorus Level 6.9H, Magnesium Level 2.2, Total Bilirubin 0.4, Direct Bilirubin 0.1, Aspartate Amino Transf (AST/SGOT) 13L , Alanine Aminotransferase (ALT/SGPT) 19, Alkaline Phosphatase 64, Total Protein 7.1, Albumin 3.5 Current Medications Medications (Trade) Dose Ordered Sig/Rajwinder Route PRN Reason Start Time Stop Time Status Last Admin Dose Admin Acetaminophen (Tylenol) 650 mg Q4H PRN ORAL Fever 10/24/18 07:00 11/20/18 18:59 Albuterol/ Ipratropium (Albuterol/ Ipratropium) 3 ml Q4H PRN HHN Shortness of Breath 10/24/18 07:00 10/26/18 18:59 Amlodipine Besylate (Norvasc) 10 mg DAILY ORAL 10/24/18 09:00 11/22/18 08:59 Calcium Carbonate (Calcium Carbonate) 650 mg THREE TIMES A DAY ORAL 10/24/18 13:00 11/23/18 12:59 UNV Cinacalcet (Sensipar) 60 mg BID ORAL 10/24/18 09:00 11/21/18 08:59 10/24/18 09:18 Clonidine HCl (Catapres TTS-3) 1 patch QWEEK TDERMAL 10/28/18 20:00 11/20/18 19:59 Clonidine HCl (Catapres Tab) 0.1 mg Q4H PRN ORAL For High Blood Pressure 10/24/18 05:15 11/21/18 01:14 Dextrose (Dextrose 50%) 25 ml Q30M PRN IV Hypoglycemia 10/24/18 05:30 11/20/18 18:59 Dextrose (Dextrose 50%) 50 ml Q30M PRN IV Hypoglycemia 10/24/18 05:30 11/20/18 18:59 Docusate Sodium (Colace) 100 mg THREE TIMES A DAY ORAL 10/24/18 09:00 11/21/18 17:59 10/24/18 09:06 Fentanyl Citrate (Sublimaze 100 mcg/2 mL) 25 mcg Q10M PRN IV Moderate Pain (Pain Scale 4-6) 10/24/18 08:00 10/24/18 14:00 Folic Acid (Folate) 3 mg DAILY ORAL 10/24/18 09:00 11/23/18 08:59 10/24/18 09:05 Heparin Sodium (Porcine) (Heparin 5000 units/ml) 5,000 units EVERY 12 HOURS SUBQ 10/24/18 09:00 11/20/18 20:59 Hydralazine HCl (Apresoline) 25 mg Q8HR ORAL 10/24/18 06:00 11/21/18 21:59 10/24/18 06:43 Labetalol HCl (Normodyne) 200 mg BID ORAL 10/24/18 09:00 11/21/18 08:59 Morphine Sulfate (Morphine Sulfate) 2 mg Q4H PRN IVP For Pain 10/24/18 05:15 10/29/18 01:14 10/24/18 11:13 Ondansetron HCl (Zofran) 4 mg Q1H PRN IVP Nausea & Vomiting 10/24/18 08:00 10/24/18 14:00 Ondansetron HCl (Zofran) 4 mg Q6H PRN IVP Nausea & Vomiting 10/24/18 07:00 11/20/18 18:59 Pantoprazole (Protonix) 40 mg Q12HR ORAL 10/24/18 09:00 11/22/18 08:59 10/24/18 09:05 Polyethylene Glycol (Miralax) 17 gm DAILYPRN PRN ORAL Constipation 10/24/18 09:00 11/20/18 08:59 10/24/18 10:42 Sevelamer Carbonate (Renvela) 2,400 mg THREE TIMES A DAY ORAL 10/24/18 09:00 11/21/18 17:59 10/24/18 09:05 Sodium Chloride 1,000 ml @ 10 mls/hr Q24H IVLG 10/24/18 07:49 10/24/18 14:00 Sucralfate (Carafate) 1 gm FOUR TIMES A DAY ORAL 10/24/18 09:00 11/21/18 17:59 10/24/18 09:06 Temazepam (Restoril) 15 mg HSPRN PRN ORAL Insomnia 10/24/18 19:00 10/28/18 18:59 Moreno Jaime MD Oct 24, 2018 11:30
--- NOTE | 2018-10-24 12:01 | NUR ---
RD ASSESSMENT & RECOMMENDATIONS SEE CARE ACTIVITY FOR COMPLETE ASSESSMENT DAILY ESTIMATED NEEDS: Needs based on ESRD on HD, 64kg adj 30-35 kcals/kg [id number] total kcals 1.2-1.8 g protein/kg 77-115 g total protein Fluid per MD, on HD NUTRITION DIAGNOSIS: Increased protein and Kcal needs r/t renal dysfunction as evidenced by pt w/ ESRD on HD CURRENT DIET: Renal diet PO DIET RECOMMENDATIONS: RENAL DIET / BLAND as tolerated ADDITIONAL RECOMMENDATIONS: 1) Obtain a post HD standing weight as able 2) rec bland diet for tolerance 3) Add NEPRO BId w/ poor po intake
--- NOTE | 2018-10-24 12:58 | NUR ---
NURSE NOTES: RN called [facility] again and spoke with Abe to confirm HD for pt on 10/24.
[2018-10-24] MEDS ORDERED: Calcium Carbonate 650mg Tab ORAL SCH (13:00)
[2018-10-24] MEDS: Tums 500mg ORAL SCH ×2 (13:28→17:10)
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
--- NOTE | 2018-10-24 13:52 | Cardiology Report ---
APPROVED REPORT EXAM: Two-dimensional and M-mode echocardiogram with Doppler and color Doppler. INDICATION Left ventricular function. M-Mode DIMENSIONS IVSd1.0 (0.7-1.1cm)Left Atrium (MM)4.8 (1.6-4.0cm) LVDd5.2 (3.5-5.6cm)Aortic Root3.0 (2.0-3.7cm) PWd1.3 (0.7-1.1cm)Aortic Cusp Exc.2.0 (1.5-2.0cm) LVDs3.9 (2.5-4.0cm) PWs1.2 cm Normal left ventricular chamber size, systolic function and wall motion. Left ventricular ejection fraction estimated to be 55 %. Moderate left ventricular hypertrophy. No evidence of pericardial effusion. Moderate left atrial enlargement. Mild right atrial enlargement Right ventricular chamber size is within normal limits. Focal aortic valve sclerosis with adequate cusp excursion. Thickened mitral valve leaflets with normal excursion. Mitral annulus and aortic root calcification. Pulmonic valve not well visualized. Normal tricuspid valve structure. IVC dilated at 2.4 cm with slight physiologic collapse suggestive of increased RA pressure. A color flow and spectral Doppler study was performed and revealed: Trace aortic regurgitation. Moderate mitral regurgitation. Mitral diastolic velocities suggest normal left ventricular relaxation. Mild to moderate tricuspid regurgitation. Tricuspid systolic velocities suggests peak right ventricular systolic pressure of 43 mmHg, consistent with mild to moderate pulmonary hypertension.
--- NOTE | 2018-10-24 14:14 | Internal Med Progress Note ---
Subjective Physician Name Alen Barragan Attending Physician Alen Barragan MD Current Medications Medications (Trade) Dose Ordered Sig/Rajwinder Route PRN Reason Start Time Stop Time Status Last Admin Dose Admin Acetaminophen (Tylenol) 650 mg Q4H PRN ORAL Fever 10/24/18 07:00 11/20/18 18:59 Albuterol/ Ipratropium (Albuterol/ Ipratropium) 3 ml Q4H PRN HHN Shortness of Breath 10/24/18 07:00 10/26/18 18:59 Amlodipine Besylate (Norvasc) 10 mg DAILY ORAL 10/24/18 09:00 11/22/18 08:59 Calcium Carbonate (Tums) 500 mg THREE TIMES A DAY ORAL 10/24/18 13:00 11/23/18 12:59 10/24/18 13:28 Cinacalcet (Sensipar) 60 mg BID ORAL 10/24/18 09:00 11/21/18 08:59 10/24/18 09:18 Clonidine HCl (Catapres TTS-3) 1 patch QWEEK TDERMAL 10/28/18 20:00 11/20/18 19:59 Clonidine HCl (Catapres Tab) 0.1 mg Q4H PRN ORAL For High Blood Pressure 10/24/18 05:15 11/21/18 01:14 Dextrose (Dextrose 50%) 25 ml Q30M PRN IV Hypoglycemia 10/24/18 05:30 11/20/18 18:59 Dextrose (Dextrose 50%) 50 ml Q30M PRN IV Hypoglycemia 10/24/18 05:30 11/20/18 18:59 Docusate Sodium (Colace) 100 mg THREE TIMES A DAY ORAL 10/24/18 09:00 11/21/18 17:59 10/24/18 13:28 Folic Acid (Folate) 3 mg DAILY ORAL 10/24/18 09:00 11/23/18 08:59 10/24/18 09:05 Heparin Sodium (Porcine) (Heparin 5000 units/ml) 5,000 units EVERY 12 HOURS SUBQ 10/24/18 09:00 11/20/18 20:59 Hydralazine HCl (Apresoline) 25 mg Q8HR ORAL 10/24/18 06:00 11/21/18 21:59 10/24/18 06:43 Ibuprofen (Motrin) 600 mg Q6H PRN ORAL pain 10/24/18 11:30 11/23/18 11:29 Labetalol HCl (Normodyne) 200 mg BID ORAL 10/24/18 09:00 11/21/18 08:59 Ondansetron HCl (Zofran) 4 mg Q6H PRN IVP Nausea & Vomiting 10/24/18 07:00 11/20/18 18:59 10/24/18 13:27 Pantoprazole (Protonix) 40 mg Q12HR ORAL 10/24/18 09:00 11/22/18 08:59 10/24/18 09:05 Polyethylene Glycol (Miralax) 17 gm DAILYPRN PRN ORAL Constipation 10/24/18 09:00 11/20/18 08:59 10/24/18 10:42 Sevelamer Carbonate (Renvela) 2,400 mg THREE TIMES A DAY ORAL 10/24/18 09:00 11/21/18 17:59 10/24/18 13:28 Sucralfate (Carafate) 1 gm FOUR TIMES A DAY ORAL 10/24/18 09:00 11/21/18 17:59 10/24/18 13:28 Temazepam (Restoril) 15 mg HSPRN PRN ORAL Insomnia 10/24/18 19:00 10/28/18 18:59 Allergies: Coded Allergies: No Known Allergies (Unverified , 01/12/14) Subjective Complain about epigastric abdominal pain, still nausea / vomiting, no chest pain , no shortness of breath, K: 5.2, S/P EGD today. Objective Last Vital Signs Date Time Temp Pulse Resp B/P (MAP) Pulse Ox O2 Delivery O2 Flow Rate FiO2 10/24/18 13:28 158/96 10/24/18 12:01 97.2 58 18 99 10/24/18 09:00 Room Air 10/24/18 08:22 3 Laboratory Tests Test 10/24/18 06:55 White Blood Count 3.4 K/UL (4.8-10.8) L Red Blood Count 4.84 M/UL (4.20-5.40) Hemoglobin 11.1 G/DL (12.0-16.0) L Hematocrit 36.2 % (37.0-47.0) L Mean Corpuscular Volume 75 FL (80-99) L Mean Corpuscular Hemoglobin 22.8 PG (27.0-31.0) L Mean Corpuscular Hemoglobin Concent 30.6 G/DL (32.0-36.0) L Red Cell Distribution Width 18.1 % (11.6-14.8) H Platelet Count 139 K/UL (150-450) L Mean Platelet Volume 9.5 FL (6.5-10.1) Neutrophils (%) (Auto) % (45.0-75.0) Lymphocytes (%) (Auto) % (20.0-45.0) Monocytes (%) (Auto) % (1.0-10.0) Eosinophils (%) (Auto) % (0.0-3.0) Basophils (%) (Auto) % (0.0-2.0) Differential Total Cells Counted 100 Neutrophils % (Manual) 55 % (45-75) Lymphocytes % (Manual) 28 % (20-45) Monocytes % (Manual) 13 % (1-10) H Eosinophils % (Manual) 3 % (0-3) Basophils % (Manual) 1 % (0-2) Band Neutrophils 0 % (0-8) Platelet Estimate Decreased L Platelet Morphology Normal Anisocytosis 2+ Microcytosis 1+ Prothrombin Time 10.5 SEC (9.30-11.50) Prothromb Time International Ratio 1.0 (0.9-1.1) Activated Partial Thromboplast Time 28 SEC (23-33) Sodium Level 136 MMOL/L (136-145) Potassium Level 5.2 MMOL/L (3.5-5.1) H Chloride Level 96 MMOL/L (98-107) L Carbon Dioxide Level 28 MMOL/L (21-32) Anion Gap 12 mmol/L (5-15) Blood Urea Nitrogen 57 mg/dL (7-18) H Creatinine 13.1 MG/DL (0.55-1.30) H Estimat Glomerular Filtration Rate 3.8 mL/min (>60) Glucose Level 89 MG/DL (74-106) Uric Acid 5.2 MG/DL (2.6-7.2) Calcium Level 8.6 MG/DL (8.5-10.1) Phosphorus Level 6.9 MG/DL (2.5-4.9) H Magnesium Level 2.2 MG/DL (1.8-2.4) Total Bilirubin 0.4 MG/DL (0.2-1.0) Direct Bilirubin 0.1 MG/DL (0.0-0.3) Aspartate Amino Transf (AST/SGOT) 13 U/L (15-37) L Alanine Aminotransferase (ALT/SGPT) 19 U/L (12-78) Alkaline Phosphatase 64 U/L (46-116) Total Protein 7.1 G/DL (6.4-8.2) Albumin 3.5 G/DL (3.4-5.0) Intake and Output 10/23/18 10/24/18 19:00 07:00 Intake Total 200 ml Balance 200 ml Intake Oral 200 ml # Voids 1 Objective GENERAL: The patient is awake and responsive, in no acute distress. HEAD AND NECK: Pupils are equal and reactive to light. Extraocular movements are intact. Neck was supple. No JVD. LUNGS: Good air entry. No wheezing or rales. HEART: S1 and S2. Distant heart sounds. No gallops. ABDOMEN: Soft. epigastric abdominal pain No rebound tenderness. No fluid shift. obesity. EXTREMITIES: No cyanosis, clubbing, or edema. Left upper extremity has AV fistula. NEUROLOGIC: Cranial nerves II through XII grossly intact. Motor is 5/5 in all extremities. Gait is intact. RECTAL: Refused and deferred. GENITOURINARY: Refused and deferred. PSYCHIATRIC: Mood and affect is intact. Assessment/Plan Assessment/Plan ASSESSMENT: 1. Intractable nausea and vomiting with epigastric abdominal pain, possible due to gastroenteritis Vs. PUD. 2. Hyperkalemia. 3. End-stage renal disease, on hemodialysis. 4. Hypertension. 5. Osteoporosis. 5. Obesity. PLAN: 1. in monitored unit. 2. Follow up laboratory. 3. Benadryl IV 4. Code status: Full Code. 5. Pain medication. 6. Advance the diet as tolerated. 7. GI consult with Dr. Ruiz 8. EGD (04/26/2019): Gastritis. Alen Barragan MD Oct 24, 2018 14:14
[2018-10-24] MEDS ORDERED: DiphenhydrAMINE 50mg/ml Inj IVP PRN ×2 (14:15→21:15)
--- NOTE | 2018-10-24 14:18 | Nephrology Progress Note ---
Assessment/Plan Problem List: (1) ESRD on dialysis (2) Hyperkalemia, diminished renal excretion (3) Acute on chronic Anemia due to acute blood loss (4) Hypertensive kidney disease Assessment 1. Intractable nausea and vomiting with abdominal pain, possible due to gastroenteritis. 2. Hyperkalemia. 3. End-stage renal disease, on hemodialysis. 4. Hypertension. Hypertensive Kidney disease 5. Osteoporosis. 6. Anemia of CKD Plan HD today 10/24 Per PMD keep BP in check, adjust BP meds Anemia rivera Folic supplement Subjective ROS Limited/Unobtainable: No Objective Objective Last 24 Hour Vital Signs Date Time Temp Pulse Resp B/P (MAP) Pulse Ox O2 Delivery O2 Flow Rate FiO2 10/24/18 13:28 158/96 10/24/18 12:01 97.2 58 18 158/96 (116) 99 10/24/18 09:00 Room Air 10/24/18 09:00 67 167/100 10/24/18 09:00 67 167/100 10/24/18 08:53 68 20 98 10/24/18 08:30 97.8 66 15 162/74 100 Room Air 10/24/18 08:22 64 19 177/89 100 Nasal Cannula 3 10/24/18 08:17 64 23 178/77 100 Nasal Cannula 3 10/24/18 08:13 64 20 98 10/24/18 08:12 97.2 65 17 179/89 100 Nasal Cannula 3 10/24/18 08:00 67 10/24/18 08:00 97.9 67 19 167/93 (117) 99 10/24/18 06:43 170/89 10/24/18 04:00 67 10/24/18 04:00 98.3 62 19 170/89 (116) 100 10/24/18 00:00 75 10/24/18 00:00 98.8 62 20 145/78 (100) 100 10/23/18 21:16 148/82 10/23/18 21:00 Room Air 10/23/18 20:00 98.2 67 20 148/82 (104) 99 10/23/18 19:03 79 10/23/18 18:17 71 143/73 10/23/18 16:00 98.2 71 20 143/83 (103) 99 10/23/18 16:00 65 10/23/18 14:20 125/73 Intake and Output 10/23/18 10/24/18 19:00 07:00 Intake Total 200 ml Balance 200 ml Intake Oral 200 ml # Voids 1 Laboratory Tests 10/24/18 06:55: White Blood Count 3.4L, Red Blood Count 4.84, Hemoglobin 11.1L, Hematocrit 36.2L , Mean Corpuscular Volume 75L, Mean Corpuscular Hemoglobin 22.8L, Mean Corpuscular Hemoglobin Concent 30.6L, Red Cell Distribution Width 18.1H, Platelet Count 139L, Mean Platelet Volume 9.5, Neutrophils (%) (Auto) , Lymphocytes (%) (Auto) , Monocytes (%) (Auto) , Eosinophils (%) (Auto) , Basophils (%) (Auto) , Differential Total Cells Counted 100, Neutrophils % ( Manual) 55, Lymphocytes % (Manual) 28, Monocytes % (Manual) 13H, Eosinophils % ( Manual) 3, Basophils % (Manual) 1, Band Neutrophils 0, Platelet Estimate DecreasedL, Platelet Morphology Normal, Anisocytosis 2+, Microcytosis 1+, Prothrombin Time 10.5, Prothromb Time International Ratio 1.0, Activated Partial Thromboplast Time 28, Sodium Level 136, Potassium Level 5.2H, Chloride Level 96L, Carbon Dioxide Level 28, Anion Gap 12, Blood Urea Nitrogen 57H, Creatinine 13.1H, Estimat Glomerular Filtration Rate 3.8, Glucose Level 89, Uric Acid 5.2, Calcium Level 8.6, Phosphorus Level 6.9H, Magnesium Level 2.2, Total Bilirubin 0.4, Direct Bilirubin 0.1, Aspartate Amino Transf (AST/SGOT) 13L , Alanine Aminotransferase (ALT/SGPT) 19, Alkaline Phosphatase 64, Total Protein 7.1, Albumin 3.5 Height (Feet): 5 Height (Inches): 6.00 Weight (Pounds): 180 General Appearance: no apparent distress Cardiovascular: normal rate Respiratory/Chest: decreased breath sounds Abdomen: soft Objective no change Edgard Vega MD Oct 24, 2018 14:18
--- NOTE | 2018-10-24 14:30 | Cardiology Report ---
APPROVED REPORT EKG Measurement Heart [id number] Normal sinus rhythm Prolonged QT Abnormal ECG
--- NOTE | 2018-10-24 17:30 | Procedure Note ---
DATE OF PROCEDURE: 10/24/2018 SURGEON: Dc Ruiz M.D. REFERRING PHYSICIAN: Alen Barragan M.D. PROCEDURE: Upper endoscopy with biopsy. ANESTHESIA: Per Dr. Sorto. INSTRUMENT: Olympus adult flexible upper endoscope. INDICATION: Abdominal pain. REASON FOR PROCEDURE: The procedure, risks, benefits, and possible consequences, including hemorrhage, aspiration, perforation and infection, and alternative treatments, were explained to the patient/legal guardian by Dr. Dc Ruiz and the patient/legal guardian understood and accepted these risks. PROCEDURE IN DETAIL: After informed consent was obtained and the patient was adequately sedated, Olympus upper endoscope was advanced from the mouth to the second portion of the duodenum and retroflexion was performed in the stomach. The patient had evidence of diffuse gastritis. Random biopsy from antrum was obtained to rule out H. pylori infection. Otherwise, there was no obvious source for abdominal pain. No ulcerations. No varices. At this time, the upper endoscope was retrieved and procedure was terminated. SUMMARY OF FINDINGS: Diffuse gastritis, status post biopsy to rule out H. pylori infection. Otherwise, normal upper endoscopic examination. RECOMMENDATIONS: 1. Follow up biopsy results and treat accordingly. 2. Resume diet. 3. Cardiology note appreciated. There is no acute cardiac issues going on with this patient. 4. Discharge planning per primary team. I want to thank Dr. Alen Barragan for this kind referral. Dc Ruiz M.D. DR: SHARON JOB#: [id number] CC:
--- NOTE | 2018-10-24 18:41 | Cardiology Progress Note ---
Assessment/Plan Assessment/Plan 1. Abnormal cardiac enzymes. 2. End-stage renal disease, on hemodialysis. 3. Hypertension history. 4. Abdominal pain with nausea and vomiting. ekg neg echo noaml wall motion okk ot med sureg walked in hallnot have anyproblems Subjective Cardiovascular: Denies: chest pain, lightheadedness, palpitations Respiratory: Denies: shortness of breath Gastrointestinal/Abdominal: Reports: nausea; Denies: abdominal pain Genitourinary: Denies: burning Objective Last 24 Hour Vital Signs Date Time Temp Pulse Resp B/P (MAP) Pulse Ox O2 Delivery O2 Flow Rate FiO2 10/24/18 17:10 55 147/99 10/24/18 16:00 68 10/24/18 16:00 97.3 55 18 137/99 (112) 98 10/24/18 13:28 158/96 10/24/18 12:01 97.2 58 18 158/96 (116) 99 10/24/18 12:00 62 10/24/18 09:00 Room Air 10/24/18 09:00 67 167/100 10/24/18 09:00 67 167/100 10/24/18 08:53 68 20 98 10/24/18 08:30 97.8 66 15 162/74 100 Room Air 10/24/18 08:22 64 19 177/89 100 Nasal Cannula 3 10/24/18 08:17 64 23 178/77 100 Nasal Cannula 3 10/24/18 08:13 64 20 98 10/24/18 08:12 97.2 65 17 179/89 100 Nasal Cannula 3 10/24/18 08:00 67 10/24/18 08:00 97.9 67 19 167/93 (117) 99 10/24/18 06:43 170/89 10/24/18 04:00 67 10/24/18 04:00 98.3 62 19 170/89 (116) 100 10/24/18 00:00 75 10/24/18 00:00 98.8 62 20 145/78 (100) 100 10/23/18 21:16 148/82 10/23/18 21:00 Room Air 10/23/18 20:00 98.2 67 20 148/82 (104) 99 10/23/18 19:03 79 General Appearance: no apparent distress, alert Neck: supple Cardiovascular: regular rhythm Respiratory/Chest: lungs clear Abdomen: normal bowel sounds, non tender, soft Extremities: no swelling Intake and Output 10/23/18 10/24/18 18:59 06:59 Intake Total 200 ml Balance 200 ml Intake Oral 200 ml # Voids 1 Laboratory Tests Test 10/24/18 06:55 White Blood Count 3.4 K/UL (4.8-10.8) L Red Blood Count 4.84 M/UL (4.20-5.40) Hemoglobin 11.1 G/DL (12.0-16.0) L Hematocrit 36.2 % (37.0-47.0) L Mean Corpuscular Volume 75 FL (80-99) L Mean Corpuscular Hemoglobin 22.8 PG (27.0-31.0) L Mean Corpuscular Hemoglobin Concent 30.6 G/DL (32.0-36.0) L Red Cell Distribution Width 18.1 % (11.6-14.8) H Platelet Count 139 K/UL (150-450) L Mean Platelet Volume 9.5 FL (6.5-10.1) Neutrophils (%) (Auto) % (45.0-75.0) Lymphocytes (%) (Auto) % (20.0-45.0) Monocytes (%) (Auto) % (1.0-10.0) Eosinophils (%) (Auto) % (0.0-3.0) Basophils (%) (Auto) % (0.0-2.0) Differential Total Cells Counted 100 Neutrophils % (Manual) 55 % (45-75) Lymphocytes % (Manual) 28 % (20-45) Monocytes % (Manual) 13 % (1-10) H Eosinophils % (Manual) 3 % (0-3) Basophils % (Manual) 1 % (0-2) Band Neutrophils 0 % (0-8) Platelet Estimate Decreased L Platelet Morphology Normal Anisocytosis 2+ Microcytosis 1+ Prothrombin Time 10.5 SEC (9.30-11.50) Prothromb Time International Ratio 1.0 (0.9-1.1) Activated Partial Thromboplast Time 28 SEC (23-33) Sodium Level 136 MMOL/L (136-145) Potassium Level 5.2 MMOL/L (3.5-5.1) H Chloride Level 96 MMOL/L (98-107) L Carbon Dioxide Level 28 MMOL/L (21-32) Anion Gap 12 mmol/L (5-15) Blood Urea Nitrogen 57 mg/dL (7-18) H Creatinine 13.1 MG/DL (0.55-1.30) H Estimat Glomerular Filtration Rate 3.8 mL/min (>60) Glucose Level 89 MG/DL (74-106) Uric Acid 5.2 MG/DL (2.6-7.2) Calcium Level 8.6 MG/DL (8.5-10.1) Phosphorus Level 6.9 MG/DL (2.5-4.9) H Magnesium Level 2.2 MG/DL (1.8-2.4) Total Bilirubin 0.4 MG/DL (0.2-1.0) Direct Bilirubin 0.1 MG/DL (0.0-0.3) Aspartate Amino Transf (AST/SGOT) 13 U/L (15-37) L Alanine Aminotransferase (ALT/SGPT) 19 U/L (12-78) Alkaline Phosphatase 64 U/L (46-116) Total Protein 7.1 G/DL (6.4-8.2) Albumin 3.5 G/DL (3.4-5.0) Magdaleno Ashley MD Oct 24, 2018 18:41
--- NOTE | 2018-10-24 18:45 | NUR ---
HAND-OFF: Report given to LINDA Camarillo. No s/s of acute distress.
--- NOTE | 2018-10-24 19:56 | NUR ---
NURSE NOTES: Received patient in bed, transfer from [facility], rn shift mgr RN have not received report from Rabia MCKEON, patient is in no acute distress at this time, VSS, afebrile, call light within reach, bed is in low position, locked. Will continue to monitor for safety and comfort.
[2018-10-24] MEDS: Heparin 5000 units/ml inj SUBQ SCH (20:34)
--- NOTE | 2018-10-24 23:38 | NUR ---
NURSE NOTES: Patients IV became dislodged, multiple tried to restart IV with limited room to try, still un successful, MD was notified.
[2018-10-25] VITALS: BP 166/91
[2018-10-25 04:00] VITALS: BP 132/75
[2018-10-25] MEDS: HydrALAZINE 25mg tab ORAL SCH ×3 (06:06→20:40)
--- NOTE | 2018-10-25 07:13 | NUR ---
HAND-OFF: Report given to Romario OLVERA.
[2018-10-25 08:00] VITALS: BP 136/75
[2018-10-25] MEDS: Labetalol 200mg tab ORAL SCH ×2 (09:00→17:11)
[2018-10-25] MEDS: Heparin 5000 units/ml inj SUBQ SCH ×2 (09:00→20:42)
[2018-10-25] MEDS: Sucralfate 1gm tab ORAL SCH ×4 (09:14→20:40)
[2018-10-25] MEDS: Docusate 100mg cap ORAL SCH ×3 (09:15→17:11)
[2018-10-25] MEDS: Tums 500mg ORAL SCH ×3 (09:15→17:10)
[2018-10-25] MEDS: Sensipar 30mg Tab ORAL SCH ×2 (09:15→17:11)
--- NOTE | 2018-10-25 09:34 | NUR ---
NURSE NOTES: PT AXOX4, CALM, RESTING IN BED. PT COMPLAINS OF ABDOMINAL PAIN. PT DOES NOT WANT IV ACCESS. RN EDUCATED PT THE PAIN MEDICATIONS ORDERED BY MD ARE THROUGH IV ACCESS. PT STATES SHE WILL THINK ABOUT IT. IN NO APPARENT DISTRESS AT THIS TIME. CALL LIGHT WITHIN REACH. WILL CONTINUE TO MONITOR.
[2018-10-25 12:00] VITALS: BP 137/92
[2018-10-25] MEDS: Miralax 17gm pkt ORAL PRN (13:20)
--- NOTE | 2018-10-25 14:15 | Internal Med Progress Note ---
Subjective Physician Name Filipe Moura Attending Physician Alen Barragan MD Current Medications Medications (Trade) Dose Ordered Sig/Rajwinder Route PRN Reason Start Time Stop Time Status Last Admin Dose Admin Acetaminophen (Tylenol) 650 mg Q4H PRN ORAL Fever (temp>100.5F) 10/24/18 19:00 11/20/18 18:59 Albuterol/ Ipratropium (Albuterol/ Ipratropium) 3 ml Q4H PRN HHN Shortness of Breath 10/24/18 19:00 10/26/18 18:59 Amlodipine Besylate (Norvasc) 10 mg DAILY ORAL 10/25/18 09:00 11/22/18 08:59 10/25/18 09:15 Calcium Carbonate (Tums) 500 mg THREE TIMES A DAY ORAL 10/25/18 09:00 11/23/18 12:59 10/25/18 13:20 Cinacalcet (Sensipar) 60 mg BID ORAL 10/25/18 09:00 11/21/18 08:59 10/25/18 09:15 Clonidine HCl (Catapres TTS-3) 1 patch QWEEK TDERMAL 10/28/18 20:00 11/20/18 19:59 Clonidine HCl (Catapres Tab) 0.1 mg Q4H PRN ORAL For High Blood Pressure 10/24/18 19:00 11/21/18 18:59 Dextrose (Dextrose 50%) 25 ml Q30M PRN IV Hypoglycemia 10/24/18 19:00 11/20/18 18:59 Dextrose (Dextrose 50%) 50 ml Q30M PRN IV Hypoglycemia 10/24/18 19:00 11/20/18 18:59 Diphenhydramine HCl (Benadryl) 50 mg Q6H PRN IVP Itching 10/24/18 21:15 11/23/18 21:14 Docusate Sodium (Colace) 100 mg THREE TIMES A DAY ORAL 10/25/18 09:00 11/21/18 17:59 10/25/18 13:20 Folic Acid (Folate) 3 mg DAILY ORAL 10/25/18 09:00 11/23/18 08:59 10/25/18 09:15 Heparin Sodium (Porcine) (Heparin 5000 units/ml) 5,000 units EVERY 12 HOURS SUBQ 10/24/18 21:00 11/20/18 20:59 10/24/18 20:34 Hydralazine HCl (Apresoline) 25 mg Q8HR ORAL 10/24/18 22:00 11/21/18 21:59 10/25/18 13:21 Ibuprofen (Motrin) 600 mg Q6H PRN ORAL pain 10/24/18 19:00 11/23/18 18:59 Labetalol HCl (Normodyne) 200 mg BID ORAL 10/25/18 09:00 11/21/18 08:59 Ondansetron HCl (Zofran) 4 mg Q6H PRN IVP Nausea & Vomiting 10/24/18 19:00 11/20/18 18:59 Pantoprazole (Protonix) 40 mg Q12HR ORAL 10/24/18 21:00 11/22/18 08:59 10/25/18 09:14 Polyethylene Glycol (Miralax) 17 gm DAILYPRN PRN ORAL Constipation 10/24/18 19:00 11/23/18 18:59 10/25/18 13:20 Sevelamer Carbonate (Renvela) 2,400 mg THREE TIMES A DAY ORAL 10/25/18 09:00 11/21/18 17:59 10/25/18 13:20 Sucralfate (Carafate) 1 gm FOUR TIMES A DAY ORAL 10/24/18 21:00 11/21/18 17:59 10/25/18 13:20 Temazepam (Restoril) 15 mg HSPRN PRN ORAL Insomnia 10/24/18 19:00 10/28/18 18:59 Allergies: Coded Allergies: No Known Allergies (Unverified , 01/12/14) Subjective 43 YO F with ESRD on HD admitted with intractable nausea and vomiting. Cover for Int med-DR Barragan. S/P EGD 10/24/18 Objective Last Vital Signs Date Time Temp Pulse Resp B/P (MAP) Pulse Ox O2 Delivery O2 Flow Rate FiO2 10/25/18 13:21 137/92 10/25/18 12:00 97.7 66 17 99 10/25/18 09:00 Room Air 10/24/18 08:22 3 Intake and Output 10/24/18 10/25/18 19:00 07:00 Intake Total 100 ml 400 ml Balance 100 ml 400 ml IV Total 100 ml Other 400 ml Objective Objective GENERAL: The patient is awake and responsive, in no acute distress. HEAD AND NECK: Pupils are equal and reactive to light. Extraocular movements are intact. Neck was supple. No JVD. LUNGS: Good air entry. No wheezing or rales. HEART: S1 and S2. Distant heart sounds. No gallops. ABDOMEN: Soft. epigastric abdominal pain No rebound tenderness. No fluid shift. Mildly obese. EXTREMITIES: No cyanosis, clubbing, or edema. Left upper extremity has AV fistula. NEUROLOGIC: Cranial nerves II through XII grossly intact. Motor is 5/5 in all extremities. Gait is intact. RECTAL: Refused and deferred. GENITOURINARY: Refused and deferred. PSYCHIATRIC: Mood and affect is intact. Assessment/Plan Assessment/Plan Assessment/Plan Assessment/Plan Assessment/Plan ASSESSMENT: 1. Intractable nausea and vomiting with epigastric abdominal pain, possible due to gastroenteritis Vs. PUD. 2. Hyperkalemia. 3. End-stage renal disease, on hemodialysis. 4. Hypertension. 5. Osteoporosis. 5. Obesity. PLAN: 1. in monitored unit. 2. Follow up laboratory. 3. Monitor the culture. 4. Code status is Full Code. 5. Pain medication. 6. Advance the diet as tolerated. 7. GI consult with Dr. Andre. 8. S/P Endoscopy 10/24/18=gastritis Filipe Moura MD Oct 25, 2018 14:15
[2018-10-25] MEDS ORDERED: NS 275ml ONE (15:10)
[2018-10-25 16:06] VITALS: BP 130/78
--- NOTE | 2018-10-25 16:17 | Nephrology Progress Note ---
Assessment/Plan Problem List: (1) ESRD on dialysis (2) Hyperkalemia, diminished renal excretion (3) Acute on chronic Anemia due to acute blood loss (4) Hypertensive kidney disease Assessment 1. Intractable nausea and vomiting with abdominal pain, possible due to gastroenteritis. 2. Hyperkalemia. 3. End-stage renal disease, on hemodialysis. 4. Hypertension. Hypertensive Kidney disease 5. Osteoporosis. 6. Anemia of CKD Plan no labs today HD 10/24 next 10/27 Per PMD keep BP in check, adjust BP meds Anemia rivera Folic supplement Subjective ROS Limited/Unobtainable: No Constitutional: Reports: malaise Objective Objective Last 24 Hour Vital Signs Date Time Temp Pulse Resp B/P (MAP) Pulse Ox O2 Delivery O2 Flow Rate FiO2 10/25/18 16:06 98.1 60 18 130/78 (95) 100 10/25/18 13:21 137/92 10/25/18 12:00 97.7 66 17 137/92 (107) 99 10/25/18 09:15 66 136/75 10/25/18 09:00 Room Air 10/25/18 08:00 98.1 66 18 136/75 (95) 100 10/25/18 06:06 141/83 10/25/18 04:00 98.6 63 18 132/75 (94) 10/25/18 00:00 98.7 61 18 166/91 (116) 10/24/18 23:10 152/87 10/24/18 21:00 Room Air 10/24/18 20:00 98.4 63 18 148/80 (102) 10/24/18 17:10 55 147/99 Intake and Output 10/24/18 10/25/18 19:00 07:00 Intake Total 100 ml 400 ml Balance 100 ml 400 ml IV Total 100 ml Other 400 ml Height (Feet): 5 Height (Inches): 6.00 Weight (Pounds): 180 General Appearance: no apparent distress Objective no change Edgard Vega MD Oct 25, 2018 16:17
--- NOTE | 2018-10-25 16:55 | NUR ---
NURSE NOTES: NEW ORDER FOR INPATIENT HEMODIALYSIS NOTED. RN CALLED [facility] AND MADE AWARE OF HEMODIALYSIS ORDER ON 10/27/18.
--- NOTE | 2018-10-25 19:18 | NUR ---
HAND-OFF: Report given to Neda VALDIVIA RN.
--- NOTE | 2018-10-25 19:23 | Pulmonology Progress Note ---
Assessment/Plan Problems: (1) Intractable nausea and vomiting (2) Hyperkalemia (3) hypertension (4) ESRD on dialysis (5) Anemia Assessment/Plan GI note appreciated epigastric pain seems to be skeletomuscular, dc morphin, try Motrin Echo noted, EF of 50%, PA pressure moderately increased by 40 troponin negative All medications and treatment were reviewed.surg f/u by GI social service consult med/surg Subjective ROS Limited/Unobtainable: No Constitutional: Reports: no symptoms HEENT: Repors: no symptoms Allergies: Coded Allergies: No Known Allergies (Unverified , 01/12/14) Objective Last 24 Hour Vital Signs Date Time Temp Pulse Resp B/P (MAP) Pulse Ox O2 Delivery O2 Flow Rate FiO2 10/25/18 17:11 60 130/78 10/25/18 16:06 98.1 60 18 130/78 (95) 100 10/25/18 13:21 137/92 10/25/18 12:00 97.7 66 17 137/92 (107) 99 10/25/18 09:15 66 136/75 10/25/18 09:00 Room Air 10/25/18 08:00 98.1 66 18 136/75 (95) 100 10/25/18 06:06 141/83 10/25/18 04:00 98.6 63 18 132/75 (94) 10/25/18 00:00 98.7 61 18 166/91 (116) 10/24/18 23:10 152/87 10/24/18 21:00 Room Air 10/24/18 20:00 98.4 63 18 148/80 (102) Intake and Output 10/24/18 10/25/18 18:59 06:59 Intake Total 100 ml 400 ml Balance 100 ml 400 ml IV Total 100 ml Other 400 ml Objective General Appearance: WN Lines, tubes and drains: peripheral HEENT: normocephalic, atraumatic Neck: non-tender, normal alignment Respiratory/Chest: chest wall non-tender, lungs clear Cardiovascular/Chest: normal rate Abdomen: normal bowel sounds, soft Genitourinary/Rectal: normal genital exam Extremities: normal range of motion Current Medications Medications (Trade) Dose Ordered Sig/Rajwinder Route PRN Reason Start Time Stop Time Status Last Admin Dose Admin Acetaminophen (Tylenol) 650 mg Q4H PRN ORAL Fever (temp>100.5F) 10/24/18 19:00 11/20/18 18:59 Albuterol/ Ipratropium (Albuterol/ Ipratropium) 3 ml Q4H PRN HHN Shortness of Breath 10/24/18 19:00 10/26/18 18:59 Amlodipine Besylate (Norvasc) 10 mg DAILY ORAL 10/25/18 09:00 11/22/18 08:59 10/25/18 09:15 Calcium Carbonate (Tums) 500 mg THREE TIMES A DAY ORAL 10/25/18 09:00 11/23/18 12:59 10/25/18 17:10 Cinacalcet (Sensipar) 60 mg BID ORAL 10/25/18 09:00 11/21/18 08:59 10/25/18 17:11 Clonidine HCl (Catapres TTS-3) 1 patch QWEEK TDERMAL 10/28/18 20:00 11/20/18 19:59 Clonidine HCl (Catapres Tab) 0.1 mg Q4H PRN ORAL For High Blood Pressure 10/24/18 19:00 11/21/18 18:59 Dextrose (Dextrose 50%) 25 ml Q30M PRN IV Hypoglycemia 10/24/18 19:00 11/20/18 18:59 Dextrose (Dextrose 50%) 50 ml Q30M PRN IV Hypoglycemia 10/24/18 19:00 11/20/18 18:59 Diphenhydramine HCl (Benadryl) 50 mg Q6H PRN IVP Itching 10/24/18 21:15 11/23/18 21:14 Docusate Sodium (Colace) 100 mg THREE TIMES A DAY ORAL 10/25/18 09:00 11/21/18 17:59 10/25/18 17:11 Folic Acid (Folate) 3 mg DAILY ORAL 10/25/18 09:00 11/23/18 08:59 10/25/18 09:15 Heparin Sodium (Porcine) (Heparin 5000 units/ml) 5,000 units EVERY 12 HOURS SUBQ 10/24/18 21:00 11/20/18 20:59 10/24/18 20:34 Hydralazine HCl (Apresoline) 25 mg Q8HR ORAL 10/24/18 22:00 11/21/18 21:59 10/25/18 13:21 Ibuprofen (Motrin) 600 mg Q6H PRN ORAL pain 10/24/18 19:00 11/23/18 18:59 Labetalol HCl (Normodyne) 200 mg BID ORAL 10/25/18 09:00 11/21/18 08:59 10/25/18 17:11 Ondansetron HCl (Zofran) 4 mg Q6H PRN IVP Nausea & Vomiting 10/24/18 19:00 11/20/18 18:59 Pantoprazole (Protonix) 40 mg Q12HR ORAL 10/24/18 21:00 11/22/18 08:59 10/25/18 09:14 Polyethylene Glycol (Miralax) 17 gm DAILYPRN PRN ORAL Constipation 10/24/18 19:00 11/23/18 18:59 10/25/18 13:20 Sevelamer Carbonate (Renvela) 2,400 mg THREE TIMES A DAY ORAL 10/25/18 09:00 11/21/18 17:59 10/25/18 17:10 Sucralfate (Carafate) 1 gm FOUR TIMES A DAY ORAL 10/24/18 21:00 11/21/18 17:59 10/25/18 17:10 Temazepam (Restoril) 15 mg HSPRN PRN ORAL Insomnia 10/24/18 19:00 10/28/18 18:59 Moreno Jaime MD Oct 25, 2018 19:23
--- NOTE | 2018-10-25 19:32 | NUR ---
NURSE NOTES: Pt is in bed, awake and alert. No acute distress noted. Pt's son by bedside. Bed low in position,side rails up and call light within reach.
[2018-10-25 20:00] VITALS: BP 140/83
[2018-10-26] VITALS: BP 138/80
[2018-10-26 04:00] VITALS: BP 154/94
--- NOTE | 2018-10-26 06:05 | NUR ---
NURSE NOTES: Pt is in bed, awake. Pt sates that she has not had BM for three days. Miralax given as ordered PRN.
[2018-10-26] MEDS: HydrALAZINE 25mg tab ORAL SCH ×3 (06:11→22:53)
[2018-10-26] MEDS: Miralax 17gm pkt ORAL PRN (06:11)
--- NOTE | 2018-10-26 07:05 | NUR ---
HAND-OFF: Report given to Vanessa Michael RN .
[2018-10-26 07:26] LABS: ANION GAP 13 mmol/L (5-15); BLOOD UREA NITROGEN 48 mg/dL (7-18); CALCIUM 8.5 MG/DL (8.5-10.1); CARBON DIOXIDE 27 MMOL/L (21-32); CHLORIDE 96 MMOL/L (98-107); CREATININE 13.4 MG/DL (0.55-1.30); POTASSIUM 5.4 MMOL/L (3.5-5.1); SODIUM 136 MMOL/L (136-145)
[2018-10-26 07:31] LABS: HEMATOCRIT 35.8 % (37.0-47.0); HEMOGLOBIN 10.9 G/DL (12.0-16.0); MEAN CORPUSCULAR VOLUME 74 FL (80-99); PLATELET COUNT 160 K/UL (150-450); RED BLOOD COUNT 4.81 M/UL (4.20-5.40); RED CELL DISTRIBUTION WIDTH 18.1 % (11.6-14.8); WHITE BLOOD COUNT 3.1 K/UL (4.8-10.8)
[2018-10-26 08:00] VITALS: BP 156/91
[2018-10-26] MEDS: Sensipar 30mg Tab ORAL SCH ×2 (09:42→18:52)
[2018-10-26] MEDS: Tums 500mg ORAL SCH ×3 (09:43→18:52)
[2018-10-26] MEDS: Docusate 100mg cap ORAL SCH ×3 (09:43→18:00)
[2018-10-26] MEDS: Labetalol 200mg tab ORAL SCH ×2 (09:43→18:51)
[2018-10-26] MEDS: Sucralfate 1gm tab ORAL SCH ×4 (09:43→22:54)
[2018-10-26] MEDS: Heparin 5000 units/ml inj SUBQ SCH ×2 (09:48→21:00)
[2018-10-26] MEDS ORDERED: Sodium Polystyrene Sulfonate 15gm Powder ORAL SCH (11:30)
--- NOTE | 2018-10-26 11:40 | NUR ---
NURSE NOTES: notified [facility] regarding HD order for tomorrow 10/27/18 routine, spoken to Sammie. Awaiting call back with confirmation.
[2018-10-26 12:00] VITALS: BP 163/93
--- NOTE | 2018-10-26 14:34 | Pulmonology Progress Note ---
Assessment/Plan Problems: (1) Intractable nausea and vomiting (2) Hyperkalemia (3) hypertension (4) ESRD on dialysis (5) Anemia Assessment/Plan vomited GI note appreciated epigastric pain seems to be skeletomuscular, dc morphin, try Motrin Echo noted, EF of 50%, PA pressure moderately increased by 40 troponin negative All medications and treatment were reviewed.surg f/u by GI social service consult med/surg Subjective ROS Limited/Unobtainable: No Constitutional: Reports: no symptoms HEENT: Repors: no symptoms Respiratory: Reports: no symptoms Allergies: Coded Allergies: No Known Allergies (Unverified , 01/12/14) Objective Last 24 Hour Vital Signs Date Time Temp Pulse Resp B/P (MAP) Pulse Ox O2 Delivery O2 Flow Rate FiO2 10/26/18 13:32 163/93 10/26/18 13:32 156/91 10/26/18 12:00 98.0 65 16 163/93 (116) 100 10/26/18 09:44 59 156/91 10/26/18 09:43 59 156/91 10/26/18 09:00 Room Air 10/26/18 08:00 96.8 59 18 156/91 (112) 100 10/26/18 06:11 154/90 10/26/18 04:00 98.1 60 18 154/94 (114) 100 10/26/18 00:00 98.2 60 18 138/80 (99) 100 10/25/18 21:00 Room Air 10/25/18 20:40 140/83 10/25/18 20:00 98.4 61 18 140/83 (102) 100 10/25/18 17:11 60 130/78 10/25/18 16:06 98.1 60 18 130/78 (95) 100 Intake and Output 10/25/18 10/26/18 19:00 07:00 Intake Total 360 ml 240 ml Balance 360 ml 240 ml Intake Oral 360 ml 240 ml # Voids 2 Objective General Appearance: WN Lines, tubes and drains: peripheral HEENT: normocephalic, atraumatic Neck: non-tender, normal alignment Respiratory/Chest: chest wall non-tender, lungs clear Cardiovascular/Chest: normal rate Abdomen: normal bowel sounds, soft Genitourinary/Rectal: normal genital exam Extremities: normal range of motion Laboratory Tests 10/26/18 05:55: White Blood Count 3.1L, Red Blood Count 4.81, Hemoglobin 10.9L, Hematocrit 35.8L , Mean Corpuscular Volume 74L, Mean Corpuscular Hemoglobin 22.6L, Mean Corpuscular Hemoglobin Concent 30.5L, Red Cell Distribution Width 18.1H, Platelet Count 160, Mean Platelet Volume 13.9H, Neutrophils (%) (Auto) , Lymphocytes (%) (Auto) , Monocytes (%) (Auto) , Eosinophils (%) (Auto) , Basophils (%) (Auto) , Differential Total Cells Counted 100, Neutrophils % ( Manual) 34L, Lymphocytes % (Manual) 49H, Monocytes % (Manual) 14H, Eosinophils % (Manual) 3, Basophils % (Manual) 0, Band Neutrophils 0, Platelet Estimate Adequate, Platelet Morphology Normal, Hypochromasia 1+, Anisocytosis 1+, Microcytosis 1+, Sodium Level 136, Potassium Level 5.4H, Chloride Level 96L, Carbon Dioxide Level 27, Anion Gap 13, Blood Urea Nitrogen 48H, Creatinine 13.4H , Estimat Glomerular Filtration Rate 3.6, Glucose Level 89, Calcium Level 8.5, Phosphorus Level 5.1H, Folate 12.1 Current Medications Medications (Trade) Dose Ordered Sig/Rajwinder Route PRN Reason Start Time Stop Time Status Last Admin Dose Admin Acetaminophen (Tylenol) 650 mg Q4H PRN ORAL Fever (temp>100.5F) 10/24/18 19:00 11/20/18 18:59 Albuterol/ Ipratropium (Albuterol/ Ipratropium) 3 ml Q4H PRN HHN Shortness of Breath 10/24/18 19:00 10/26/18 18:59 Amlodipine Besylate (Norvasc) 10 mg DAILY ORAL 10/25/18 09:00 11/22/18 08:59 10/26/18 09:44 Calcium Carbonate (Tums) 500 mg THREE TIMES A DAY ORAL 10/25/18 09:00 11/23/18 12:59 10/26/18 13:32 Cinacalcet (Sensipar) 60 mg BID ORAL 10/25/18 09:00 11/21/18 08:59 10/26/18 09:42 Clonidine HCl (Catapres TTS-3) 1 patch QWEEK TDERMAL 10/28/18 20:00 11/20/18 19:59 Clonidine HCl (Catapres Tab) 0.1 mg Q4H PRN ORAL For High Blood Pressure 10/24/18 19:00 11/21/18 18:59 10/26/18 13:32 Dextrose (Dextrose 50%) 25 ml Q30M PRN IV Hypoglycemia 10/24/18 19:00 11/20/18 18:59 Dextrose (Dextrose 50%) 50 ml Q30M PRN IV Hypoglycemia 10/24/18 19:00 11/20/18 18:59 Diphenhydramine HCl (Benadryl) 50 mg Q6H PRN IVP Itching 10/24/18 21:15 11/23/18 21:14 Docusate Sodium (Colace) 100 mg THREE TIMES A DAY ORAL 10/25/18 09:00 11/21/18 17:59 10/26/18 13:31 Folic Acid (Folate) 3 mg DAILY ORAL 10/25/18 09:00 11/23/18 08:59 10/26/18 09:42 Heparin Sodium (Porcine) (Heparin 5000 units/ml) 5,000 units EVERY 12 HOURS SUBQ 10/24/18 21:00 11/20/18 20:59 10/26/18 09:48 Hydralazine HCl (Apresoline) 25 mg Q8HR ORAL 10/24/18 22:00 11/21/18 21:59 10/26/18 13:32 Ibuprofen (Motrin) 600 mg Q6H PRN ORAL pain 10/24/18 19:00 11/23/18 18:59 10/25/18 21:26 Labetalol HCl (Normodyne) 200 mg BID ORAL 10/25/18 09:00 11/21/18 08:59 10/26/18 09:43 Ondansetron HCl (Zofran ODT) 4 mg Q6H PRN ORAL Nausea & Vomiting 10/26/18 13:30 11/25/18 13:29 10/26/18 13:35 Pantoprazole (Protonix) 40 mg Q12HR ORAL 10/24/18 21:00 11/22/18 08:59 10/26/18 09:44 Polyethylene Glycol (Miralax) 17 gm DAILYPRN PRN ORAL Constipation 10/24/18 19:00 11/23/18 18:59 10/26/18 06:11 Sevelamer Carbonate (Renvela) 2,400 mg THREE TIMES A DAY ORAL 10/25/18 09:00 11/21/18 17:59 10/26/18 13:31 Sucralfate (Carafate) 1 gm FOUR TIMES A DAY ORAL 10/24/18 21:00 11/21/18 17:59 10/26/18 13:35 Temazepam (Restoril) 15 mg HSPRN PRN ORAL Insomnia 10/24/18 19:00 10/28/18 18:59 Moreno Jaime MD Oct 26, 2018 14:34
--- NOTE | 2018-10-26 14:43 | Nephrology Progress Note ---
Assessment/Plan Problem List: (1) ESRD on dialysis (2) Hyperkalemia, diminished renal excretion (3) Acute on chronic Anemia due to acute blood loss (4) Hypertensive kidney disease Assessment 1. Intractable nausea and vomiting with abdominal pain, possible due to gastroenteritis. 2. Hyperkalemia. 3. End-stage renal disease, on hemodialysis. 4. Hypertension. Hypertensive Kidney disease 5. Osteoporosis. 6. Anemia of CKD Plan Labs OK HD 10/24 next 10/27 Per PMD keep BP in check, adjust BP meds Anemia rivera Folic supplement Subjective ROS Limited/Unobtainable: No Constitutional: Reports: malaise Objective Objective Last 24 Hour Vital Signs Date Time Temp Pulse Resp B/P (MAP) Pulse Ox O2 Delivery O2 Flow Rate FiO2 10/26/18 13:32 163/93 10/26/18 13:32 156/91 10/26/18 12:00 98.0 65 16 163/93 (116) 100 10/26/18 09:44 59 156/91 10/26/18 09:43 59 156/91 10/26/18 09:00 Room Air 10/26/18 08:00 96.8 59 18 156/91 (112) 100 10/26/18 06:11 154/90 10/26/18 04:00 98.1 60 18 154/94 (114) 100 10/26/18 00:00 98.2 60 18 138/80 (99) 100 10/25/18 21:00 Room Air 10/25/18 20:40 140/83 10/25/18 20:00 98.4 61 18 140/83 (102) 100 10/25/18 17:11 60 130/78 10/25/18 16:06 98.1 60 18 130/78 (95) 100 Intake and Output 10/25/18 10/26/18 19:00 07:00 Intake Total 360 ml 240 ml Balance 360 ml 240 ml Intake Oral 360 ml 240 ml # Voids 2 Laboratory Tests 10/26/18 05:55: White Blood Count 3.1L, Red Blood Count 4.81, Hemoglobin 10.9L, Hematocrit 35.8L , Mean Corpuscular Volume 74L, Mean Corpuscular Hemoglobin 22.6L, Mean Corpuscular Hemoglobin Concent 30.5L, Red Cell Distribution Width 18.1H, Platelet Count 160, Mean Platelet Volume 13.9H, Neutrophils (%) (Auto) , Lymphocytes (%) (Auto) , Monocytes (%) (Auto) , Eosinophils (%) (Auto) , Basophils (%) (Auto) , Differential Total Cells Counted 100, Neutrophils % ( Manual) 34L, Lymphocytes % (Manual) 49H, Monocytes % (Manual) 14H, Eosinophils % (Manual) 3, Basophils % (Manual) 0, Band Neutrophils 0, Platelet Estimate Adequate, Platelet Morphology Normal, Hypochromasia 1+, Anisocytosis 1+, Microcytosis 1+, Sodium Level 136, Potassium Level 5.4H, Chloride Level 96L, Carbon Dioxide Level 27, Anion Gap 13, Blood Urea Nitrogen 48H, Creatinine 13.4H , Estimat Glomerular Filtration Rate 3.6, Glucose Level 89, Calcium Level 8.5, Phosphorus Level 5.1H, Folate 12.1 Height (Feet): 5 Height (Inches): 6.00 Weight (Pounds): 180 General Appearance: no apparent distress Cardiovascular: normal rate Respiratory/Chest: lungs clear Abdomen: soft Objective no change Edgard Vega MD Oct 26, 2018 14:43
--- NOTE | 2018-10-26 15:40 | Internal Med Progress Note ---
Subjective Date of Service: Oct 26, 2018 Physician Name Filipe Moura Attending Physician Alen Barragan MD Current Medications Medications (Trade) Dose Ordered Sig/Rajwinder Route PRN Reason Start Time Stop Time Status Last Admin Dose Admin Acetaminophen (Tylenol) 650 mg Q4H PRN ORAL Fever (temp>100.5F) 10/24/18 19:00 11/20/18 18:59 Albuterol/ Ipratropium (Albuterol/ Ipratropium) 3 ml Q4H PRN HHN Shortness of Breath 10/24/18 19:00 10/26/18 18:59 Amlodipine Besylate (Norvasc) 10 mg DAILY ORAL 10/25/18 09:00 11/22/18 08:59 10/26/18 09:44 Calcium Carbonate (Tums) 500 mg THREE TIMES A DAY ORAL 10/25/18 09:00 11/23/18 12:59 10/26/18 13:32 Cinacalcet (Sensipar) 60 mg BID ORAL 10/25/18 09:00 11/21/18 08:59 10/26/18 09:42 Clonidine HCl (Catapres TTS-3) 1 patch QWEEK TDERMAL 10/28/18 20:00 11/20/18 19:59 Clonidine HCl (Catapres Tab) 0.1 mg Q4H PRN ORAL For High Blood Pressure 10/24/18 19:00 11/21/18 18:59 10/26/18 13:32 Dextrose (Dextrose 50%) 25 ml Q30M PRN IV Hypoglycemia 10/24/18 19:00 11/20/18 18:59 Dextrose (Dextrose 50%) 50 ml Q30M PRN IV Hypoglycemia 10/24/18 19:00 11/20/18 18:59 Diphenhydramine HCl (Benadryl) 50 mg Q6H PRN IVP Itching 10/24/18 21:15 11/23/18 21:14 Docusate Sodium (Colace) 100 mg THREE TIMES A DAY ORAL 10/25/18 09:00 11/21/18 17:59 10/26/18 13:31 Folic Acid (Folate) 3 mg DAILY ORAL 10/25/18 09:00 11/23/18 08:59 10/26/18 09:42 Heparin Sodium (Porcine) (Heparin 5000 units/ml) 5,000 units EVERY 12 HOURS SUBQ 10/24/18 21:00 11/20/18 20:59 10/26/18 09:48 Hydralazine HCl (Apresoline) 25 mg Q8HR ORAL 10/24/18 22:00 11/21/18 21:59 10/26/18 13:32 Ibuprofen (Motrin) 600 mg Q6H PRN ORAL pain 10/24/18 19:00 11/23/18 18:59 10/25/18 21:26 Labetalol HCl (Normodyne) 200 mg BID ORAL 10/25/18 09:00 11/21/18 08:59 10/26/18 09:43 Ondansetron HCl (Zofran ODT) 4 mg Q6H PRN ORAL Nausea & Vomiting 10/26/18 13:30 11/25/18 13:29 10/26/18 13:35 Pantoprazole (Protonix) 40 mg Q12HR ORAL 10/24/18 21:00 11/22/18 08:59 10/26/18 09:44 Polyethylene Glycol (Miralax) 17 gm DAILYPRN PRN ORAL Constipation 10/24/18 19:00 11/23/18 18:59 10/26/18 06:11 Sevelamer Carbonate (Renvela) 2,400 mg THREE TIMES A DAY ORAL 10/25/18 09:00 11/21/18 17:59 10/26/18 13:31 Sucralfate (Carafate) 1 gm FOUR TIMES A DAY ORAL 10/24/18 21:00 11/21/18 17:59 10/26/18 13:35 Temazepam (Restoril) 15 mg HSPRN PRN ORAL Insomnia 10/24/18 19:00 10/28/18 18:59 Allergies: Coded Allergies: No Known Allergies (Unverified , 01/12/14) ROS Limited/Unobtainable: No Constitutional: Reports: no symptoms HEENT: Reports: no symptoms Cardiovascular: Reports: no symptoms Respiratory: Reports: no symptoms Gastrointestinal/Abdominal: Reports: nausea, vomiting Genitourinary: Reports: no symptoms Neurologic/Psychiatric: Reports: no symptoms Subjective 43 YO F with ESRD on HD admitted with intractable nausea and vomiting. Cover for Int carmen-DR Barragan. S/P EGD 10/24/18 Objective Last Vital Signs Date Time Temp Pulse Resp B/P (MAP) Pulse Ox O2 Delivery O2 Flow Rate FiO2 10/26/18 13:32 163/93 10/26/18 12:00 98.0 65 16 100 10/26/18 09:00 Room Air 10/24/18 08:22 3 Laboratory Tests Test 10/26/18 05:55 White Blood Count 3.1 K/UL (4.8-10.8) L Red Blood Count 4.81 M/UL (4.20-5.40) Hemoglobin 10.9 G/DL (12.0-16.0) L Hematocrit 35.8 % (37.0-47.0) L Mean Corpuscular Volume 74 FL (80-99) L Mean Corpuscular Hemoglobin 22.6 PG (27.0-31.0) L Mean Corpuscular Hemoglobin Concent 30.5 G/DL (32.0-36.0) L Red Cell Distribution Width 18.1 % (11.6-14.8) H Platelet Count 160 K/UL (150-450) Mean Platelet Volume 13.9 FL (6.5-10.1) H Neutrophils (%) (Auto) % (45.0-75.0) Lymphocytes (%) (Auto) % (20.0-45.0) Monocytes (%) (Auto) % (1.0-10.0) Eosinophils (%) (Auto) % (0.0-3.0) Basophils (%) (Auto) % (0.0-2.0) Differential Total Cells Counted 100 Neutrophils % (Manual) 34 % (45-75) L Lymphocytes % (Manual) 49 % (20-45) H Monocytes % (Manual) 14 % (1-10) H Eosinophils % (Manual) 3 % (0-3) Basophils % (Manual) 0 % (0-2) Band Neutrophils 0 % (0-8) Platelet Estimate Adequate Platelet Morphology Normal Hypochromasia 1+ Anisocytosis 1+ Microcytosis 1+ Sodium Level 136 MMOL/L (136-145) Potassium Level 5.4 MMOL/L (3.5-5.1) H Chloride Level 96 MMOL/L (98-107) L Carbon Dioxide Level 27 MMOL/L (21-32) Anion Gap 13 mmol/L (5-15) Blood Urea Nitrogen 48 mg/dL (7-18) H Creatinine 13.4 MG/DL (0.55-1.30) H Estimat Glomerular Filtration Rate 3.6 mL/min (>60) Glucose Level 89 MG/DL (74-106) Calcium Level 8.5 MG/DL (8.5-10.1) Phosphorus Level 5.1 MG/DL (2.5-4.9) H Folate 12.1 NG/ML (8.6-58.9) Intake and Output 10/25/18 10/26/18 19:00 07:00 Intake Total 360 ml 240 ml Balance 360 ml 240 ml Intake Oral 360 ml 240 ml # Voids 2 Objective Objective GENERAL: The patient is awake and responsive, in no acute distress. HEAD AND NECK: Pupils are equal and reactive to light. Extraocular movements are intact. Neck was supple. No JVD. LUNGS: Good air entry. No wheezing or rales. HEART: S1 and S2. Distant heart sounds. No gallops. ABDOMEN: Soft. epigastric abdominal pain No rebound tenderness. No fluid shift. Mildly obese. EXTREMITIES: No cyanosis, clubbing, or edema. Left upper extremity has AV fistula. NEUROLOGIC: Cranial nerves II through XII grossly intact. Motor is 5/5 in all extremities. Gait is intact. RECTAL: Refused and deferred. GENITOURINARY: Refused and deferred. PSYCHIATRIC: Mood and affect is intact. Assessment/Plan Assessment/Plan Assessment/Plan Assessment/Plan Assessment/Plan ASSESSMENT: 1. Intractable nausea and vomiting with epigastric abdominal pain, possible due to gastroenteritis Vs. PUD. 2. Hyperkalemia. 3. End-stage renal disease, on hemodialysis. 4. Hypertension. 5. Osteoporosis. 5. Obesity. PLAN: 1. in monitored unit. 2. Follow up laboratory. 3. Monitor the culture. 4. Code status is Full Code. 5. Pain medication. 6. Advance the diet as tolerated. 7. GI consult with Dr. Andre. 8. S/P Endoscopy 10/24/18=gastritis Filipe Moura MD Oct 26, 2018 15:40
[2018-10-26 16:00] VITALS: BP 150/86
--- NOTE | 2018-10-26 18:00 | NUR ---
CASE MANAGEMENT: REVIEW 10/26/2018 SI:NON- INFECTIVE GASTROENTERITIS AND COLITIS. T: 98.1 HR 60 RR 17 B/P 150/86 SATS 99% ON RA WBC 3.1 K 5.4 CL 96 BUN 48 CR 13.4 PHOS 5.1 IS:SENSIPAR PO BID LABETALOL PO BID NORVASC PO QD FOLATE PO QD PROTONIX PO Q12H HYDRALAZINE PO Q8H RENVELA PO TID CARAFATE PO QID MED/SURG STATUS PLAN OF CARE: 10/27
--- NOTE | 2018-10-26 19:30 | NUR ---
HAND-OFF: Report given to MAY Mcrae.
[2018-10-26 20:00] VITALS: BP 131/74
--- NOTE | 2018-10-26 20:03 | NUR ---
NURSE NOTES: Received report from MAY Mendez. Patient A&Ox4. On room air. no signs of distress or labored breathing. No IV access, MD aware. Bed in lowest position with call light in reach. Will continue with plan of care.
[2018-10-27] VITALS: BP 143/88
[2018-10-27 04:00] VITALS: BP 151/86
[2018-10-27] MEDS: HydrALAZINE 25mg tab ORAL SCH ×3 (06:09→21:20)
--- NOTE | 2018-10-27 07:23 | NUR ---
HAND-OFF: Report given to MAY Mendez.
[2018-10-27 07:52] LABS: HEMATOCRIT 36.9 % (37.0-47.0); MEAN CORPUSCULAR VOLUME 74 FL (80-99); PLATELET COUNT 127 K/UL (150-450); RED CELL DISTRIBUTION WIDTH 17.6 % (11.6-14.8); WHITE BLOOD COUNT 3.1 K/UL (4.8-10.8)
[2018-10-27 08:00] VITALS: BP 134/70
[2018-10-27 08:05] LABS: ANION GAP 13 mmol/L (5-15); BLOOD UREA NITROGEN 56 mg/dL (7-18); CARBON DIOXIDE 28 MMOL/L (21-32); CHLORIDE 95 MMOL/L (98-107); CREATININE 15.4 MG/DL (0.55-1.30); POTASSIUM 5.1 MMOL/L (3.5-5.1); SODIUM 136 MMOL/L (136-145)
[2018-10-27] MEDS: Docusate 100mg cap ORAL SCH ×3 (09:00→17:07)
[2018-10-27] MEDS: Labetalol 200mg tab ORAL SCH ×2 (09:00→17:57)
[2018-10-27] MEDS: Heparin 5000 units/ml inj SUBQ SCH ×2 (09:00→21:00)
--- NOTE | 2018-10-27 09:52 | General Progress Note ---
Assessment/Plan Problem List: (1) hypertension (2) Anemia ICD Codes: D64.9 - Anemia, unspecified SNOMED: 242955606 (3) ESRD on dialysis ICD Codes: N18.6 - End stage renal disease; Z99.2 - Dependence on renal dialysis SNOMED: 719108362 Assessment/Plan ? cause for abd pain EGD >> mild gastritis CT>>>>>>>>>>>>>>>>>: CT Abdomen Pelvis w/Contrast Indication: Abdominal pain Technique: Continuous helical transaxial imaging of the abdomen and pelvis was obtained from the lung bases to the pubic symphysis during intravenous contrast administration. Coronal 2-D reformats were also obtained. Study obtained in a Siemens sensation [address] Automatic Exposure Control was utilized. Total Dose length Product (DLP): 717.[address] Dose Index Volume (CTDIvol): 14.12 mGy Comparison: None Findings: Lung bases are clear. There are 2 tiny hypodensities in the liver too small to adequately characterize. Spleen is unremarkable. The kidneys are atrophic. There are innumerable cysts within both kidneys. Moderate aortoiliac calcifications are present. The gallbladder, spleen and pancreas are unremarkable. The bladder is nondistended. Uterus noted. Appendix is not seen well but is probably identified at least partially and appears normal as such. The sacroiliac joints are fused. There are old rib fractures on the left side. IMPRESSION: No acute findings. Suboptimal evaluation of the appendix which is only partially seen but appears normal as such. No secondary signs of acute appendicitis seen. Atrophic kidneys. Innumerable cysts. 2 tiny hypodensities in the liver too small to characterize adequately. Atherosclerotic vascular disease. Fused bilateral sacroiliac joints. Old rib fractures continue bowel regimen cont ppi and carafate prn zofran add marinol monitor labs consider colonoscopy if persistent abd pain Subjective ROS Limited/Unobtainable: Yes Allergies: Coded Allergies: No Known Allergies (Unverified , 01/12/14) Subjective last vomiting yesterday had one bm yesterday poor appetite Objective Last 24 Hour Vital Signs Date Time Temp Pulse Resp B/P (MAP) Pulse Ox O2 Delivery O2 Flow Rate FiO2 10/27/18 09:00 62 134/70 10/27/18 09:00 62 134/70 3/25/19 08:00 98.7 62 20 134/70 (91) 98 10/27/18 06:09 151/86 10/27/18 04:00 98.3 63 18 151/86 (107) 98 10/27/18 00:00 98.5 64 18 143/88 (106) 97 10/26/18 22:53 131/74 10/26/18 21:41 95 20 Room Air 21 10/26/18 21:00 Room Air 10/26/18 20:00 98.7 64 18 131/74 (93) 97 10/26/18 19:21 98.1 10/26/18 18:51 60 150/86 10/26/18 16:00 98.1 60 17 150/86 (107) 99 10/26/18 13:32 163/93 10/26/18 13:32 156/91 10/26/18 12:00 98.0 65 16 163/93 (116) 100 Intake and Output 10/26/18 10/27/18 19:00 07:00 Intake Total 200 ml 354 ml Balance 200 ml 354 ml Intake Oral 200 ml 354 ml Laboratory Tests 10/27/18 06:40: White Blood Count 3.1L, Red Blood Count 5.00, Hemoglobin 11.0L, Hematocrit 36.9L , Mean Corpuscular Volume 74L, Mean Corpuscular Hemoglobin 22.0L, Mean Corpuscular Hemoglobin Concent 29.7L, Red Cell Distribution Width 17.6H, Platelet Count 127L, Mean Platelet Volume 7.8, Neutrophils (%) (Auto) , Lymphocytes (%) (Auto) , Monocytes (%) (Auto) , Eosinophils (%) (Auto) , Basophils (%) (Auto) , Neutrophils % (Manual) [Pending], Lymphocytes % (Manual) [Pending], Platelet Estimate [Pending], Platelet Morphology [Pending], Sodium Level 136, Potassium Level 5.1, Chloride Level 95L, Carbon Dioxide Level 28, Anion Gap 13, Blood Urea Nitrogen 56H, Creatinine 15.4H, Estimat Glomerular Filtration Rate 3.0, Glucose Level 91, Calcium Level 8.0L Height (Feet): 5 Height (Inches): 6.00 Weight (Pounds): 180 General Appearance: alert EENT: normal ENT inspection Neck: supple Cardiovascular: normal rate Respiratory/Chest: lungs clear Abdomen: normal bowel sounds, non tender, soft Extremities: non-tender Dc Ruiz MD Oct 27, 2018 09:51
[2018-10-27] MEDS: Sucralfate 1gm tab ORAL SCH ×4 (10:11→21:20)
[2018-10-27] MEDS: Tums 500mg ORAL SCH ×3 (10:11→21:21)
[2018-10-27] MEDS ORDERED: Metoclopramide 10mg/2ml Inj IVP PRN (10:15)
[2018-10-27] MEDS: Sensipar 30mg Tab ORAL SCH ×2 (10:35→21:21)
[2018-10-27 12:00] VITALS: BP 157/90
--- NOTE | 2018-10-27 14:05 | Nephrology Progress Note ---
Assessment/Plan Problem List: (1) ESRD on dialysis (2) Hyperkalemia, diminished renal excretion (3) Acute on chronic Anemia due to acute blood loss (4) Hypertensive kidney disease Assessment 1. Intractable nausea and vomiting with abdominal pain, possible due to gastroenteritis. 2. Hyperkalemia. 3. End-stage renal disease, on hemodialysis. 4. Hypertension. Hypertensive Kidney disease 5. Osteoporosis. 6. Anemia of CKD Plan Labs OK HD 10/24 next 10/27 Per PMD keep BP in check, adjust BP meds Anemia rivera Folic supplement Subjective ROS Limited/Unobtainable: No Constitutional: Reports: malaise Objective Objective Last 24 Hour Vital Signs Date Time Temp Pulse Resp B/P (MAP) Pulse Ox O2 Delivery O2 Flow Rate FiO2 10/27/18 09:00 Room Air 10/27/18 09:00 62 134/70 10/27/18 09:00 62 134/70 10/27/18 08:00 98.7 62 20 134/70 (91) 98 10/27/18 06:09 151/86 10/27/18 04:00 98.3 63 18 151/86 (107) 98 10/27/18 00:00 98.5 64 18 143/88 (106) 97 10/26/18 22:53 131/74 10/26/18 21:41 95 20 Room Air 21 10/26/18 21:00 Room Air 10/26/18 20:00 98.7 64 18 131/74 (93) 97 10/26/18 19:21 98.1 10/26/18 18:51 60 150/86 10/26/18 16:00 98.1 60 17 150/86 (107) 99 Intake and Output 10/26/18 10/27/18 19:00 07:00 Intake Total 200 ml 354 ml Balance 200 ml 354 ml Intake Oral 200 ml 354 ml Laboratory Tests 10/27/18 06:40: White Blood Count 3.1L, Red Blood Count 5.00, Hemoglobin 11.0L, Hematocrit 36.9L , Mean Corpuscular Volume 74L, Mean Corpuscular Hemoglobin 22.0L, Mean Corpuscular Hemoglobin Concent 29.7L, Red Cell Distribution Width 17.6H, Platelet Count 127L, Mean Platelet Volume 7.8, Neutrophils (%) (Auto) , Lymphocytes (%) (Auto) , Monocytes (%) (Auto) , Eosinophils (%) (Auto) , Basophils (%) (Auto) , Differential Total Cells Counted 100, Neutrophils % ( Manual) 37L, Lymphocytes % (Manual) 47H, Monocytes % (Manual) 11H, Eosinophils % (Manual) 5H, Basophils % (Manual) 0, Band Neutrophils 0, Platelet Estimate DecreasedL, Platelet Morphology Normal, Hypochromasia 1+, Anisocytosis 1+, Microcytosis , Sodium Level 136, Potassium Level 5.1, Chloride Level 95L, Carbon Dioxide Level 28, Anion Gap 13, Blood Urea Nitrogen 56H, Creatinine 15.4H , Estimat Glomerular Filtration Rate 3.0, Glucose Level 91, Calcium Level 8.0L Height (Feet): 5 Height (Inches): 6.00 Weight (Pounds): 180 General Appearance: no apparent distress Cardiovascular: normal rate Respiratory/Chest: lungs clear Abdomen: soft Objective no change Edgard Vega MD Oct 27, 2018 14:05
[2018-10-27 16:00] VITALS: BP 157/77
--- NOTE | 2018-10-27 16:00 | NUR ---
NURSE NOTES: patient started HD done by [facility] Nephrology HD nurse Tammy.
--- NOTE | 2018-10-27 16:48 | NUR ---
NURSE NOTES: Homeless Patient Discharge Planning Checklist filled by Ben Tyson, placed on pt's physical chart.
--- NOTE | 2018-10-27 17:58 | Internal Med Progress Note ---
Subjective Date of Service: Oct 27, 2018 Physician Name Filipe Moura Attending Physician Alen Barragan MD Current Medications Medications (Trade) Dose Ordered Sig/Rajwinder Route PRN Reason Start Time Stop Time Status Last Admin Dose Admin Acetaminophen (Tylenol) 650 mg Q4H PRN ORAL Fever (temp>100.5F) 10/24/18 19:00 11/20/18 18:59 Amlodipine Besylate (Norvasc) 10 mg DAILY ORAL 10/25/18 09:00 11/22/18 08:59 10/26/18 09:44 Calcium Carbonate (Tums) 500 mg THREE TIMES A DAY ORAL 10/25/18 09:00 11/23/18 12:59 10/27/18 14:14 Cinacalcet (Sensipar) 60 mg BID ORAL 10/25/18 09:00 11/21/18 08:59 10/27/18 10:35 Clonidine HCl (Catapres TTS-3) 1 patch QWEEK TDERMAL 10/28/18 20:00 11/20/18 19:59 Clonidine HCl (Catapres Tab) 0.1 mg Q4H PRN ORAL For High Blood Pressure 10/24/18 19:00 11/21/18 18:59 10/26/18 13:32 Dextrose (Dextrose 50%) 25 ml Q30M PRN IV Hypoglycemia 10/24/18 19:00 11/20/18 18:59 Dextrose (Dextrose 50%) 50 ml Q30M PRN IV Hypoglycemia 10/24/18 19:00 11/20/18 18:59 Diphenhydramine HCl (Benadryl) 50 mg Q6H PRN IVP Itching 10/24/18 21:15 11/23/18 21:14 Docusate Sodium (Colace) 100 mg THREE TIMES A DAY ORAL 10/25/18 09:00 11/21/18 17:59 10/26/18 13:31 Dronabinol (Marinol) 5 mg BID ORAL 10/27/18 18:00 11/26/18 17:59 Folic Acid (Folate) 3 mg DAILY ORAL 10/25/18 09:00 11/23/18 08:59 10/27/18 10:11 Heparin Sodium (Porcine) (Heparin 5000 units/ml) 5,000 units EVERY 12 HOURS SUBQ 10/24/18 21:00 11/20/18 20:59 10/26/18 09:48 Hydralazine HCl (Apresoline) 25 mg Q8HR ORAL 10/24/18 22:00 11/21/18 21:59 10/27/18 14:15 Ibuprofen (Motrin) 600 mg Q6H PRN ORAL pain 10/24/18 19:00 11/23/18 18:59 10/27/18 14:23 Labetalol HCl (Normodyne) 200 mg BID ORAL 10/25/18 09:00 11/21/18 08:59 10/26/18 18:51 Metoclopramide HCl (Reglan) 5 mg Q8H PRN IVP Nausea & Vomiting 10/27/18 10:15 11/26/18 10:14 Ondansetron HCl (Zofran ODT) 4 mg Q6H PRN ORAL Nausea & Vomiting 10/26/18 13:30 11/25/18 13:29 10/27/18 10:35 Pantoprazole (Protonix) 40 mg Q12HR ORAL 10/24/18 21:00 11/22/18 08:59 10/27/18 10:11 Polyethylene Glycol (Miralax) 17 gm DAILYPRN PRN ORAL Constipation 10/24/18 19:00 11/23/18 18:59 10/26/18 06:11 Sevelamer Carbonate (Renvela) 2,400 mg THREE TIMES A DAY ORAL 10/25/18 09:00 11/21/18 17:59 10/27/18 10:10 Sucralfate (Carafate) 1 gm FOUR TIMES A DAY ORAL 10/24/18 21:00 11/21/18 17:59 10/27/18 14:15 Temazepam (Restoril) 15 mg HSPRN PRN ORAL Insomnia 10/24/18 19:00 10/28/18 18:59 Allergies: Coded Allergies: No Known Allergies (Unverified , 01/12/14) ROS Limited/Unobtainable: No Constitutional: Reports: no symptoms HEENT: Reports: no symptoms Cardiovascular: Reports: no symptoms Respiratory: Reports: no symptoms Gastrointestinal/Abdominal: Reports: abdominal pain, nausea, vomiting Genitourinary: Reports: no symptoms Neurologic/Psychiatric: Reports: no symptoms Subjective 43 YO F with ESRD on HD admitted with intractable nausea and vomiting. Cover for Int med-DR Barragan. S/P EGD 10/24/18 Objective Last Vital Signs Date Time Temp Pulse Resp B/P (MAP) Pulse Ox O2 Delivery O2 Flow Rate FiO2 10/27/18 16:00 98.5 62 18 157/77 (103) 100 10/27/18 09:00 Room Air 10/26/18 21:41 21 10/24/18 08:22 3 Laboratory Tests Test 10/27/18 06:40 White Blood Count 3.1 K/UL (4.8-10.8) L Red Blood Count 5.00 M/UL (4.20-5.40) Hemoglobin 11.0 G/DL (12.0-16.0) L Hematocrit 36.9 % (37.0-47.0) L Mean Corpuscular Volume 74 FL (80-99) L Mean Corpuscular Hemoglobin 22.0 PG (27.0-31.0) L Mean Corpuscular Hemoglobin Concent 29.7 G/DL (32.0-36.0) L Red Cell Distribution Width 17.6 % (11.6-14.8) H Platelet Count 127 K/UL (150-450) L Mean Platelet Volume 7.8 FL (6.5-10.1) Neutrophils (%) (Auto) % (45.0-75.0) Lymphocytes (%) (Auto) % (20.0-45.0) Monocytes (%) (Auto) % (1.0-10.0) Eosinophils (%) (Auto) % (0.0-3.0) Basophils (%) (Auto) % (0.0-2.0) Differential Total Cells Counted 100 Neutrophils % (Manual) 37 % (45-75) L Lymphocytes % (Manual) 47 % (20-45) H Monocytes % (Manual) 11 % (1-10) H Eosinophils % (Manual) 5 % (0-3) H Basophils % (Manual) 0 % (0-2) Band Neutrophils 0 % (0-8) Platelet Estimate Decreased L Platelet Morphology Normal Hypochromasia 1+ Anisocytosis 1+ Microcytosis Sodium Level 136 MMOL/L (136-145) Potassium Level 5.1 MMOL/L (3.5-5.1) Chloride Level 95 MMOL/L (98-107) L Carbon Dioxide Level 28 MMOL/L (21-32) Anion Gap 13 mmol/L (5-15) Blood Urea Nitrogen 56 mg/dL (7-18) H Creatinine 15.4 MG/DL (0.55-1.30) H Estimat Glomerular Filtration Rate 3.0 mL/min (>60) Glucose Level 91 MG/DL (74-106) Calcium Level 8.0 MG/DL (8.5-10.1) L Intake and Output 10/26/18 10/27/18 19:00 07:00 Intake Total 200 ml 354 ml Balance 200 ml 354 ml Intake Oral 200 ml 354 ml Objective Objective GENERAL: The patient is awake and responsive, in no acute distress. HEAD AND NECK: Pupils are equal and reactive to light. Extraocular movements are intact. Neck was supple. No JVD. LUNGS: Good air entry. No wheezing or rales. HEART: S1 and S2. Distant heart sounds. No gallops. ABDOMEN: Soft. epigastric abdominal pain No rebound tenderness. No fluid shift. Mildly obese. EXTREMITIES: No cyanosis, clubbing, or edema. Left upper extremity has AV fistula. NEUROLOGIC: Cranial nerves II through XII grossly intact. Motor is 5/5 in all extremities. Gait is intact. RECTAL: Refused and deferred. GENITOURINARY: Refused and deferred. PSYCHIATRIC: Mood and affect is intact. Assessment/Plan Assessment/Plan Assessment/Plan Assessment/Plan Assessment/Plan ASSESSMENT: 1. Intractable nausea and vomiting with epigastric abdominal pain, possible due to gastroenteritis Vs. PUD. 2. Hyperkalemia. 3. End-stage renal disease, on hemodialysis. 4. Hypertension. 5. Osteoporosis. 5. Obesity. PLAN: 1. in monitored unit. 2. Follow up laboratory. 3. Monitor the culture. 4. Code status is Full Code. 5. Pain medication. 6. Advance the diet as tolerated. 7. GI consult with Dr. Andre. 8. S/P Endoscopy 10/24/18=gastritis 9. Hemodialysis 10/27/18 Filipe Moura MD Oct 27, 2018 17:58
--- NOTE | 2018-10-27 18:41 | NUR ---
NURSE NOTES: HD nurse Tammy asked nurse to hold afternoon meds, only give after HD is finished.
--- NOTE | 2018-10-27 19:20 | NUR ---
HAND-OFF: Report given to RN Yovani.
[2018-10-27 20:00] VITALS: BP 160/93
--- NOTE | 2018-10-27 20:00 | NUR ---
NURSE NOTES: Pt is in bed, awake and verbal. No acute distress noted. HD is done. Vitals stable. Pt reports that she is hungry and wants to eat, she states if she does not get anything to eat then she will leave. Dr. Ruiz is called and received order to feed the patient now and to keep the pt NPO after midnight to possibly have a colonoscopy done tomorrow. Bed low in position,side rails up and call light within reach. Pt is instructed to call for assistance before getting out of bed. Pt will be monitored.
[2018-10-27] MEDS: Dronabinol 2.5mg Cap ORAL SCH (21:20)
[2018-10-28] VITALS: BP 158/85
[2018-10-28 04:00] VITALS: BP 147/86
[2018-10-28] MEDS: HydrALAZINE 25mg tab ORAL SCH ×2 (06:38→13:59)
--- NOTE | 2018-10-28 07:15 | NUR ---
HAND-OFF: Report given to Kerry Painting RN .Pt is awake and alert. No acute distress noted.
--- NOTE | 2018-10-28 07:16 | NUR ---
NURSE NOTES: Received patient awake, alert and oriented lying comfortably in bed. No IV site. Bed at lowest level with 2 side rails up. Call light within reach. In no apparent distress at this time. Will continue to monitor.
[2018-10-28 08:00] VITALS: BP 140/93
[2018-10-28 08:13] LABS: HEMATOCRIT 37.5 % (37.0-47.0); HEMOGLOBIN 11.4 G/DL (12.0-16.0); MEAN CORPUSCULAR VOLUME 74 FL (80-99); PLATELET COUNT 145 K/UL (150-450); RED BLOOD COUNT 5.03 M/UL (4.20-5.40); RED CELL DISTRIBUTION WIDTH 17.9 % (11.6-14.8)
[2018-10-28 08:21] LABS: ALANINE AMINOTRANSFERASE 15 U/L (12-78); ALBUMIN 3.7 G/DL (3.4-5.0); ALKALINE PHOSPHATASE 61 U/L (46-116); AMYLASE 122 U/L (25-115); ANION GAP 11 mmol/L (5-15); ASPARTATE AMINO TRANSFERASE 13 U/L (15-37); BILIRUBIN,TOTAL 0.4 MG/DL (0.2-1.0); BLOOD UREA NITROGEN 30 mg/dL (7-18); CALCIUM 8.3 MG/DL (8.5-10.1); CARBON DIOXIDE 30 MMOL/L (21-32); CHLORIDE 97 MMOL/L (98-107); POTASSIUM 4.5 MMOL/L (3.5-5.1); SODIUM 138 MMOL/L (136-145)
--- NOTE | 2018-10-28 08:45 | General Progress Note ---
Assessment/Plan Problem List: (1) hypertension (2) Anemia ICD Codes: D64.9 - Anemia, unspecified SNOMED: 284891137 (3) ESRD on dialysis ICD Codes: N18.6 - End stage renal disease; Z99.2 - Dependence on renal dialysis SNOMED: 192987645 Assessment/Plan ? cause for abd pain EGD >> mild gastritis CT>>>>>>>>>>>>>>>>>: CT Abdomen Pelvis w/Contrast Indication: Abdominal pain Technique: Continuous helical transaxial imaging of the abdomen and pelvis was obtained from the lung bases to the pubic symphysis during intravenous contrast administration. Coronal 2-D reformats were also obtained. Study obtained in a Siemens sensation [address] Automatic Exposure Control was utilized. Total Dose length Product (DLP): 717.[address] Dose Index Volume (CTDIvol): 14.12 mGy Comparison: None Findings: Lung bases are clear. There are 2 tiny hypodensities in the liver too small to adequately characterize. Spleen is unremarkable. The kidneys are atrophic. There are innumerable cysts within both kidneys. Moderate aortoiliac calcifications are present. The gallbladder, spleen and pancreas are unremarkable. The bladder is nondistended. Uterus noted. Appendix is not seen well but is probably identified at least partially and appears normal as such. The sacroiliac joints are fused. There are old rib fractures on the left side. IMPRESSION: No acute findings. Suboptimal evaluation of the appendix which is only partially seen but appears normal as such. No secondary signs of acute appendicitis seen. Atrophic kidneys. Innumerable cysts. 2 tiny hypodensities in the liver too small to characterize adequately. Atherosclerotic vascular disease. Fused bilateral sacroiliac joints. Old rib fractures continue bowel regimen cont ppi and carafate prn zofran on marinol monitor labs consider colonoscopy if persistent abd pain>>> patient refusing for now Subjective ROS Limited/Unobtainable: Yes Allergies: Coded Allergies: No Known Allergies (Unverified , 01/12/14) Subjective no recurrent vomiting no abd pain Objective Last 24 Hour Vital Signs Date Time Temp Pulse Resp B/P (MAP) Pulse Ox O2 Delivery O2 Flow Rate FiO2 10/28/18 06:38 147/86 10/28/18 04:00 98.2 60 18 147/86 (106) 100 10/28/18 02:10 64 16 Room Air 21 10/28/18 00:00 98.4 62 18 158/85 (109) 100 10/27/18 21:20 160/93 10/27/18 21:00 Room Air 10/27/18 20:00 98.2 66 18 160/93 (115) 100 10/27/18 17:57 62 157/77 10/27/18 16:00 98.5 62 18 157/77 (103) 100 10/27/18 14:53 97.9 10/27/18 14:15 157/90 10/27/18 12:00 97.9 66 18 157/90 (112) 100 10/27/18 09:00 Room Air 10/27/18 09:00 62 134/70 10/27/18 09:00 62 134/70 Intake and Output 10/27/18 10/28/18 19:00 07:00 Intake Total 720 ml 240 ml Balance 720 ml 240 ml Intake Oral 720 ml 240 ml Laboratory Tests 10/28/18 07:20: White Blood Count 3.0L, Red Blood Count 5.03, Hemoglobin 11.4L, Hematocrit 37.5 , Mean Corpuscular Volume 74L, Mean Corpuscular Hemoglobin 22.6L, Mean Corpuscular Hemoglobin Concent 30.3L, Red Cell Distribution Width 17.9H, Platelet Count 145L, Mean Platelet Volume 10.9H, Neutrophils (%) (Auto) , Lymphocytes (%) (Auto) , Monocytes (%) (Auto) , Eosinophils (%) (Auto) , Basophils (%) (Auto) , Differential Total Cells Counted 100, Neutrophils % ( Manual) 43L, Lymphocytes % (Manual) 39, Monocytes % (Manual) 13H, Eosinophils % (Manual) 2, Basophils % (Manual) 3H, Band Neutrophils 0, Platelet Estimate DecreasedL, Platelet Morphology Normal, Hypochromasia 1+, Anisocytosis 1+, Microcytosis 1+, Sodium Level 138, Potassium Level 4.5, Chloride Level 97L, Carbon Dioxide Level 30, Anion Gap 11, Blood Urea Nitrogen 30H, Creatinine 11.0H , Estimat Glomerular Filtration Rate 4.6, Glucose Level 89, Calcium Level 8.3L, Total Bilirubin 0.4, Aspartate Amino Transf (AST/SGOT) 13L, Alanine Aminotransferase (ALT/SGPT) 15, Alkaline Phosphatase 61, Total Protein 7.4, Albumin 3.7, Globulin 3.7, Albumin/Globulin Ratio 1.0, Amylase Level 122H, Lipase 147 Height (Feet): 5 Height (Inches): 6.00 Weight (Pounds): 180 General Appearance: alert EENT: normal ENT inspection Neck: supple Cardiovascular: normal rate Respiratory/Chest: lungs clear Abdomen: normal bowel sounds, non tender, soft Extremities: non-tender Dc Ruiz MD Oct 28, 2018 08:45
[2018-10-28] MEDS: Docusate 100mg cap ORAL SCH ×2 (09:00→13:00)
[2018-10-28] MEDS: Heparin 5000 units/ml inj SUBQ SCH (09:00)
[2018-10-28] MEDS: Sensipar 30mg Tab ORAL SCH (09:28)
[2018-10-28] MEDS: Tums 500mg ORAL SCH ×2 (09:28→13:00)
[2018-10-28] MEDS: Labetalol 200mg tab ORAL SCH (09:29)
[2018-10-28] MEDS: Sucralfate 1gm tab ORAL SCH ×2 (09:29→13:00)
[2018-10-28] MEDS: Dronabinol 2.5mg Cap ORAL SCH (09:30)
--- NOTE | 2018-10-28 11:54 | NUR ---
Social Service Note ISIAH met with patient yesterday to discuss impending dc planning. ISIAH discussed referral ISIAH Flores initiated to [facility] located at [address] Patient states she doesn't want placement away from the [place] area. SW discussed homeless assessment centers located close to the area of patient's choice. [facility] [address] [place], and [facility] [address] [facility], . ISIAH also contacted [address] [place] [address] and there is not a long-term in [place]. Patient states she has a placed that is safe and familiar that she will return too. Patient will obtain the address and will be provided a taxi voucher to her preferred location. Clothing is weather appropriate. ISIAH spoke with Mamie Rosario [phone] and confirmed patient is still on service with this unit. Patient is M-W-F [id number]. ISIAH faxed patient's information [phone]. ISIAH addressed follow up appointment with patient. Patient declined to provide PCP information and stated she could follow up on her own with an appointment if needed. Check list provided to charge nurse with resources. Will monitor and be available as needed.
[2018-10-28 12:00] VITALS: BP 130/84
[2018-10-28] MEDS ORDERED: NORMODYNE200 MG ORAL (12:31)
[2018-10-28] MEDS ORDERED: NORVASC10 MG ORAL (12:31)
[2018-10-28] MEDS ORDERED: IBUPROFEN600 MG ORAL (12:31)
[2018-10-28] MEDS ORDERED: TUMS500 MG ORAL (12:31)
[2018-10-28] MEDS ORDERED: RENVELA800 MG ORAL (12:31)
[2018-10-28] MEDS ORDERED: CATAPRES-TTS 31 EACH TDERMAL (12:31)
[2018-10-28] MEDS ORDERED: FOLIC ACID1 MG ORAL (12:31)
[2018-10-28] MEDS ORDERED: CARAFATE1 G1 ORAL (12:31)
[2018-10-28] MEDS ORDERED: SENSIPAR30 MG ORAL (12:31)
[2018-10-28] MEDS ORDERED: PROTONIX40 MG ORAL (12:31)
--- NOTE | 2018-10-28 12:32 | Pulmonology Progress Note ---
Assessment/Plan Problems: (1) Intractable nausea and vomiting (2) Hyperkalemia (3) hypertension (4) ESRD on dialysis (5) Anemia Assessment/Plan symptomatic treatment GI note appreciated epigastric pain seems to be skeletomuscular, dc morphin, try Motrin Echo noted, EF of 50%, PA pressure moderately increased by 40 troponin negative All medications and treatment were reviewed.surg f/u by GI social service consult med/surg dc planning Subjective Interval Events: late note 10/27 no new complains wants to go home Allergies: Coded Allergies: No Known Allergies (Unverified , 01/12/14) Objective Last 24 Hour Vital Signs Date Time Temp Pulse Resp B/P (MAP) Pulse Ox O2 Delivery O2 Flow Rate FiO2 10/28/18 09:29 60 147/86 10/28/18 09:29 60 147/86 10/28/18 09:00 Room Air 10/28/18 08:00 98.4 63 16 140/93 (109) 98 10/28/18 06:38 147/86 10/28/18 04:00 98.2 60 18 147/86 (106) 100 10/28/18 02:10 64 16 Room Air 21 10/28/18 00:00 98.4 62 18 158/85 (109) 100 10/27/18 21:20 160/93 10/27/18 21:00 Room Air 10/27/18 20:00 98.2 66 18 160/93 (115) 100 10/27/18 17:57 62 157/77 10/27/18 16:00 98.5 62 18 157/77 (103) 100 10/27/18 14:53 97.9 10/27/18 14:15 157/90 Intake and Output 10/27/18 10/28/18 19:00 07:00 Intake Total 720 ml 240 ml Balance 720 ml 240 ml Intake Oral 720 ml 240 ml Objective General Appearance: WN Lines, tubes and drains: peripheral HEENT: normocephalic, atraumatic Neck: non-tender, normal alignment Respiratory/Chest: chest wall non-tender, lungs clear Cardiovascular/Chest: normal rate Abdomen: normal bowel sounds, soft Genitourinary/Rectal: normal genital exam Extremities: normal range of motion Laboratory Tests 10/28/18 07:20: White Blood Count 3.0L, Red Blood Count 5.03, Hemoglobin 11.4L, Hematocrit 37.5 , Mean Corpuscular Volume 74L, Mean Corpuscular Hemoglobin 22.6L, Mean Corpuscular Hemoglobin Concent 30.3L, Red Cell Distribution Width 17.9H, Platelet Count 145L, Mean Platelet Volume 10.9H, Neutrophils (%) (Auto) , Lymphocytes (%) (Auto) , Monocytes (%) (Auto) , Eosinophils (%) (Auto) , Basophils (%) (Auto) , Differential Total Cells Counted 100, Neutrophils % ( Manual) 43L, Lymphocytes % (Manual) 39, Monocytes % (Manual) 13H, Eosinophils % (Manual) 2, Basophils % (Manual) 3H, Band Neutrophils 0, Platelet Estimate DecreasedL, Platelet Morphology Normal, Hypochromasia 1+, Anisocytosis 1+, Microcytosis 1+, Sodium Level 138, Potassium Level 4.5, Chloride Level 97L, Carbon Dioxide Level 30, Anion Gap 11, Blood Urea Nitrogen 30H, Creatinine 11.0H , Estimat Glomerular Filtration Rate 4.6, Glucose Level 89, Calcium Level 8.3L, Total Bilirubin 0.4, Aspartate Amino Transf (AST/SGOT) 13L, Alanine Aminotransferase (ALT/SGPT) 15, Alkaline Phosphatase 61, Total Protein 7.4, Albumin 3.7, Globulin 3.7, Albumin/Globulin Ratio 1.0, Amylase Level 122H, Lipase 147 10/28/18 08:20: Phosphorus Level 5.2H Current Medications Medications (Trade) Dose Ordered Sig/Rajwinder Route PRN Reason Start Time Stop Time Status Last Admin Dose Admin Acetaminophen (Tylenol) 650 mg Q4H PRN ORAL Fever (temp>100.5F) 10/24/18 19:00 11/20/18 18:59 Amlodipine Besylate (Norvasc) 10 mg DAILY ORAL 10/25/18 09:00 11/22/18 08:59 10/28/18 09:29 Calcium Carbonate (Tums) 500 mg THREE TIMES A DAY ORAL 10/25/18 09:00 11/23/18 12:59 10/28/18 09:28 Cinacalcet (Sensipar) 60 mg BID ORAL 10/25/18 09:00 11/21/18 08:59 10/28/18 09:28 Clonidine HCl (Catapres TTS-3) 1 patch QWEEK TDERMAL 3/26/19 20:00 11/20/18 19:59 Clonidine HCl (Catapres Tab) 0.1 mg Q4H PRN ORAL For High Blood Pressure 10/24/18 19:00 11/21/18 18:59 10/26/18 13:32 Dextrose (Dextrose 50%) 25 ml Q30M PRN IV Hypoglycemia 10/24/18 19:00 11/20/18 18:59 Dextrose (Dextrose 50%) 50 ml Q30M PRN IV Hypoglycemia 10/24/18 19:00 11/20/18 18:59 Diphenhydramine HCl (Benadryl) 50 mg Q6H PRN IVP Itching 10/24/18 21:15 11/23/18 21:14 Docusate Sodium (Colace) 100 mg THREE TIMES A DAY ORAL 10/25/18 09:00 11/21/18 17:59 10/26/18 13:31 Dronabinol (Marinol) 5 mg BID ORAL 10/27/18 18:00 11/26/18 17:59 10/28/18 09:30 Folic Acid (Folate) 3 mg DAILY ORAL 10/25/18 09:00 11/23/18 08:59 10/28/18 09:29 Heparin Sodium (Porcine) (Heparin 5000 units/ml) 5,000 units EVERY 12 HOURS SUBQ 10/24/18 21:00 11/20/18 20:59 10/26/18 09:48 Hydralazine HCl (Apresoline) 25 mg Q8HR ORAL 10/24/18 22:00 11/21/18 21:59 10/28/18 06:38 Ibuprofen (Motrin) 600 mg Q6H PRN ORAL pain 10/24/18 19:00 11/23/18 18:59 10/27/18 23:26 Labetalol HCl (Normodyne) 200 mg BID ORAL 10/25/18 09:00 11/21/18 08:59 10/28/18 09:29 Metoclopramide HCl (Reglan) 5 mg Q8H PRN IVP Nausea & Vomiting 10/27/18 10:15 11/26/18 10:14 Ondansetron HCl (Zofran ODT) 4 mg Q6H PRN ORAL Nausea & Vomiting 10/26/18 13:30 11/25/18 13:29 10/27/18 10:35 Pantoprazole (Protonix) 40 mg Q12HR ORAL 10/24/18 21:00 11/22/18 08:59 10/28/18 09:29 Polyethylene Glycol (Miralax) 17 gm DAILYPRN PRN ORAL Constipation 10/24/18 19:00 11/23/18 18:59 10/26/18 06:11 Sevelamer Carbonate (Renvela) 2,400 mg THREE TIMES A DAY ORAL 10/25/18 09:00 11/21/18 17:59 10/28/18 09:28 Sucralfate (Carafate) 1 gm FOUR TIMES A DAY ORAL 10/24/18 21:00 11/21/18 17:59 10/28/18 09:29 Temazepam (Restoril) 15 mg HSPRN PRN ORAL Insomnia 10/24/18 19:00 10/28/18 18:59 Moreno Jaime MD Oct 28, 2018 12:32
--- NOTE | 2018-10-28 12:33 | Pulmonology Progress Note ---
Assessment/Plan Problems: (1) Intractable nausea and vomiting (2) Hyperkalemia (3) hypertension (4) ESRD on dialysis (5) Anemia Assessment/Plan symptomatic treatment GI note appreciated epigastric pain seems to be skeletomuscular, dc morphin, try Motrin Echo noted, EF of 50%, PA pressure moderately increased by 40 f/u by GI social service consult med/surg dc planning prescription given All medications and treatment were reviewed.surg Subjective ROS Limited/Unobtainable: No Constitutional: Reports: no symptoms HEENT: Repors: no symptoms Respiratory: Reports: no symptoms Allergies: Coded Allergies: No Known Allergies (Unverified , 01/12/14) Objective Last 24 Hour Vital Signs Date Time Temp Pulse Resp B/P (MAP) Pulse Ox O2 Delivery O2 Flow Rate FiO2 10/28/18 09:29 60 147/86 10/28/18 09:29 60 147/86 10/28/18 09:00 Room Air 10/28/18 08:00 98.4 63 16 140/93 (109) 98 10/28/18 06:38 147/86 10/28/18 04:00 98.2 60 18 147/86 (106) 100 10/28/18 02:10 64 16 Room Air 21 10/28/18 00:00 98.4 62 18 158/85 (109) 100 10/27/18 21:20 160/93 10/27/18 21:00 Room Air 10/27/18 20:00 98.2 66 18 160/93 (115) 100 10/27/18 17:57 62 157/77 10/27/18 16:00 98.5 62 18 157/77 (103) 100 10/27/18 14:53 97.9 10/27/18 14:15 157/90 Intake and Output 10/27/18 10/28/18 19:00 07:00 Intake Total 720 ml 240 ml Balance 720 ml 240 ml Intake Oral 720 ml 240 ml Objective General Appearance: WN Lines, tubes and drains: peripheral HEENT: normocephalic, atraumatic Neck: non-tender, normal alignment Respiratory/Chest: chest wall non-tender, lungs clear Cardiovascular/Chest: normal rate Abdomen: normal bowel sounds, soft Genitourinary/Rectal: normal genital exam Extremities: normal range of motion Laboratory Tests 10/28/18 07:20: White Blood Count 3.0L, Red Blood Count 5.03, Hemoglobin 11.4L, Hematocrit 37.5 , Mean Corpuscular Volume 74L, Mean Corpuscular Hemoglobin 22.6L, Mean Corpuscular Hemoglobin Concent 30.3L, Red Cell Distribution Width 17.9H, Platelet Count 145L, Mean Platelet Volume 10.9H, Neutrophils (%) (Auto) , Lymphocytes (%) (Auto) , Monocytes (%) (Auto) , Eosinophils (%) (Auto) , Basophils (%) (Auto) , Differential Total Cells Counted 100, Neutrophils % ( Manual) 43L, Lymphocytes % (Manual) 39, Monocytes % (Manual) 13H, Eosinophils % (Manual) 2, Basophils % (Manual) 3H, Band Neutrophils 0, Platelet Estimate DecreasedL, Platelet Morphology Normal, Hypochromasia 1+, Anisocytosis 1+, Microcytosis 1+, Sodium Level 138, Potassium Level 4.5, Chloride Level 97L, Carbon Dioxide Level 30, Anion Gap 11, Blood Urea Nitrogen 30H, Creatinine 11.0H , Estimat Glomerular Filtration Rate 4.6, Glucose Level 89, Calcium Level 8.3L, Total Bilirubin 0.4, Aspartate Amino Transf (AST/SGOT) 13L, Alanine Aminotransferase (ALT/SGPT) 15, Alkaline Phosphatase 61, Total Protein 7.4, Albumin 3.7, Globulin 3.7, Albumin/Globulin Ratio 1.0, Amylase Level 122H, Lipase 147 10/28/18 08:20: Phosphorus Level 5.2H Current Medications Medications (Trade) Dose Ordered Sig/Rajwinder Route PRN Reason Start Time Stop Time Status Last Admin Dose Admin Acetaminophen (Tylenol) 650 mg Q4H PRN ORAL Fever (temp>100.5F) 10/24/18 19:00 11/20/18 18:59 Amlodipine Besylate (Norvasc) 10 mg DAILY ORAL 10/25/18 09:00 11/22/18 08:59 10/28/18 09:29 Calcium Carbonate (Tums) 500 mg THREE TIMES A DAY ORAL 10/25/18 09:00 11/23/18 12:59 10/28/18 09:28 Cinacalcet (Sensipar) 60 mg BID ORAL 10/25/18 09:00 11/21/18 08:59 10/28/18 09:28 Clonidine HCl (Catapres TTS-3) 1 patch QWEEK TDERMAL 10/28/18 20:00 11/20/18 19:59 Clonidine HCl (Catapres Tab) 0.1 mg Q4H PRN ORAL For High Blood Pressure 10/24/18 19:00 11/21/18 18:59 10/26/18 13:32 Dextrose (Dextrose 50%) 25 ml Q30M PRN IV Hypoglycemia 10/24/18 19:00 11/20/18 18:59 Dextrose (Dextrose 50%) 50 ml Q30M PRN IV Hypoglycemia 10/24/18 19:00 11/20/18 18:59 Diphenhydramine HCl (Benadryl) 50 mg Q6H PRN IVP Itching 10/24/18 21:15 11/23/18 21:14 Docusate Sodium (Colace) 100 mg THREE TIMES A DAY ORAL 10/25/18 09:00 11/21/18 17:59 10/26/18 13:31 Dronabinol (Marinol) 5 mg BID ORAL 10/27/18 18:00 11/26/18 17:59 10/28/18 09:30 Folic Acid (Folate) 3 mg DAILY ORAL 10/25/18 09:00 11/23/18 08:59 10/28/18 09:29 Heparin Sodium (Porcine) (Heparin 5000 units/ml) 5,000 units EVERY 12 HOURS SUBQ 10/24/18 21:00 11/20/18 20:59 10/26/18 09:48 Hydralazine HCl (Apresoline) 25 mg Q8HR ORAL 10/24/18 22:00 11/21/18 21:59 10/28/18 06:38 Ibuprofen (Motrin) 600 mg Q6H PRN ORAL pain 10/24/18 19:00 11/23/18 18:59 10/27/18 23:26 Labetalol HCl (Normodyne) 200 mg BID ORAL 10/25/18 09:00 11/21/18 08:59 10/28/18 09:29 Metoclopramide HCl (Reglan) 5 mg Q8H PRN IVP Nausea & Vomiting 10/27/18 10:15 11/26/18 10:14 Ondansetron HCl (Zofran ODT) 4 mg Q6H PRN ORAL Nausea & Vomiting 10/26/18 13:30 11/25/18 13:29 10/27/18 10:35 Pantoprazole (Protonix) 40 mg Q12HR ORAL 10/24/18 21:00 11/22/18 08:59 10/28/18 09:29 Polyethylene Glycol (Miralax) 17 gm DAILYPRN PRN ORAL Constipation 10/24/18 19:00 11/23/18 18:59 10/26/18 06:11 Sevelamer Carbonate (Renvela) 2,400 mg THREE TIMES A DAY ORAL 10/25/18 09:00 11/21/18 17:59 10/28/18 09:28 Sucralfate (Carafate) 1 gm FOUR TIMES A DAY ORAL 10/24/18 21:00 11/21/18 17:59 10/28/18 09:29 Temazepam (Restoril) 15 mg HSPRN PRN ORAL Insomnia 10/24/18 19:00 10/28/18 18:59 Moreno Jaime MD Oct 28, 2018 12:33
--- NOTE | 2018-10-28 13:22 | Nephrology Progress Note ---
Assessment/Plan Problem List: (1) ESRD on dialysis (2) Hyperkalemia, diminished renal excretion (3) Acute on chronic Anemia due to acute blood loss (4) Hypertensive kidney disease Assessment 1. Intractable nausea and vomiting with abdominal pain, possible due to gastroenteritis. 2. Hyperkalemia. 3. End-stage renal disease, on hemodialysis. 4. Hypertension. Hypertensive Kidney disease 5. Osteoporosis. 6. Anemia of CKD Plan Labs OK HD next 10/29 if in house Per PMD keep BP in check, adjust BP meds Anemia rivera Folic supplement ? DC Subjective ROS Limited/Unobtainable: No Objective Objective Last 24 Hour Vital Signs Date Time Temp Pulse Resp B/P (MAP) Pulse Ox O2 Delivery O2 Flow Rate FiO2 10/28/18 09:29 60 147/86 10/28/18 09:29 60 147/86 10/28/18 09:00 Room Air 10/28/18 08:00 98.4 63 16 140/93 (109) 98 10/28/18 06:38 147/86 10/28/18 04:00 98.2 60 18 147/86 (106) 100 10/28/18 02:10 64 16 Room Air 21 10/28/18 00:00 98.4 62 18 158/85 (109) 100 10/27/18 21:20 160/93 10/27/18 21:00 Room Air 10/27/18 20:00 98.2 66 18 160/93 (115) 100 10/27/18 17:57 62 157/77 10/27/18 16:00 98.5 62 18 157/77 (103) 100 10/27/18 14:53 97.9 10/27/18 14:15 157/90 Intake and Output 10/27/18 10/28/18 19:00 07:00 Intake Total 720 ml 240 ml Balance 720 ml 240 ml Intake Oral 720 ml 240 ml Current Medications Medications (Trade) Dose Ordered Sig/Rajwinder Route PRN Reason Start Time Stop Time Status Last Admin Dose Admin Acetaminophen (Tylenol) 650 mg Q4H PRN ORAL Fever (temp>100.5F) 10/24/18 19:00 11/20/18 18:59 Amlodipine Besylate (Norvasc) 10 mg DAILY ORAL 10/25/18 09:00 11/22/18 08:59 10/28/18 09:29 Calcium Carbonate (Tums) 500 mg THREE TIMES A DAY ORAL 10/25/18 09:00 11/23/18 12:59 10/28/18 09:28 Cinacalcet (Sensipar) 60 mg BID ORAL 10/25/18 09:00 11/21/18 08:59 10/28/18 09:28 Clonidine HCl (Catapres TTS-3) 1 patch QWEEK TDERMAL 10/28/18 20:00 11/20/18 19:59 Clonidine HCl (Catapres Tab) 0.1 mg Q4H PRN ORAL For High Blood Pressure 10/24/18 19:00 11/21/18 18:59 10/26/18 13:32 Dextrose (Dextrose 50%) 25 ml Q30M PRN IV Hypoglycemia 10/24/18 19:00 11/20/18 18:59 Dextrose (Dextrose 50%) 50 ml Q30M PRN IV Hypoglycemia 10/24/18 19:00 11/20/18 18:59 Diphenhydramine HCl (Benadryl) 50 mg Q6H PRN IVP Itching 10/24/18 21:15 11/23/18 21:14 Docusate Sodium (Colace) 100 mg THREE TIMES A DAY ORAL 10/25/18 09:00 11/21/18 17:59 10/26/18 13:31 Dronabinol (Marinol) 5 mg BID ORAL 10/27/18 18:00 11/26/18 17:59 10/28/18 09:30 Folic Acid (Folate) 3 mg DAILY ORAL 10/25/18 09:00 11/23/18 08:59 10/28/18 09:29 Heparin Sodium (Porcine) (Heparin 5000 units/ml) 5,000 units EVERY 12 HOURS SUBQ 10/24/18 21:00 11/20/18 20:59 10/26/18 09:48 Hydralazine HCl (Apresoline) 25 mg Q8HR ORAL 10/24/18 22:00 11/21/18 21:59 10/28/18 06:38 Ibuprofen (Motrin) 600 mg Q6H PRN ORAL pain 10/24/18 19:00 11/23/18 18:59 10/27/18 23:26 Labetalol HCl (Normodyne) 200 mg BID ORAL 10/25/18 09:00 11/21/18 08:59 10/28/18 09:29 Metoclopramide HCl (Reglan) 5 mg Q8H PRN IVP Nausea & Vomiting 10/27/18 10:15 11/26/18 10:14 Ondansetron HCl (Zofran ODT) 4 mg Q6H PRN ORAL Nausea & Vomiting 10/26/18 13:30 11/25/18 13:29 10/27/18 10:35 Pantoprazole (Protonix) 40 mg Q12HR ORAL 10/24/18 21:00 11/22/18 08:59 10/28/18 09:29 Polyethylene Glycol (Miralax) 17 gm DAILYPRN PRN ORAL Constipation 10/24/18 19:00 11/23/18 18:59 10/26/18 06:11 Sevelamer Carbonate (Renvela) 2,400 mg THREE TIMES A DAY ORAL 10/25/18 09:00 11/21/18 17:59 10/28/18 09:28 Sucralfate (Carafate) 1 gm FOUR TIMES A DAY ORAL 10/24/18 21:00 11/21/18 17:59 10/28/18 09:29 Temazepam (Restoril) 15 mg HSPRN PRN ORAL Insomnia 10/24/18 19:00 10/28/18 18:59 Laboratory Tests 10/28/18 07:20: White Blood Count 3.0L, Red Blood Count 5.03, Hemoglobin 11.4L, Hematocrit 37.5 , Mean Corpuscular Volume 74L, Mean Corpuscular Hemoglobin 22.6L, Mean Corpuscular Hemoglobin Concent 30.3L, Red Cell Distribution Width 17.9H, Platelet Count 145L, Mean Platelet Volume 10.9H, Neutrophils (%) (Auto) , Lymphocytes (%) (Auto) , Monocytes (%) (Auto) , Eosinophils (%) (Auto) , Basophils (%) (Auto) , Differential Total Cells Counted 100, Neutrophils % ( Manual) 43L, Lymphocytes % (Manual) 39, Monocytes % (Manual) 13H, Eosinophils % (Manual) 2, Basophils % (Manual) 3H, Band Neutrophils 0, Platelet Estimate DecreasedL, Platelet Morphology Normal, Hypochromasia 1+, Anisocytosis 1+, Microcytosis 1+, Sodium Level 138, Potassium Level 4.5, Chloride Level 97L, Carbon Dioxide Level 30, Anion Gap 11, Blood Urea Nitrogen 30H, Creatinine 11.0H , Estimat Glomerular Filtration Rate 4.6, Glucose Level 89, Calcium Level 8.3L, Total Bilirubin 0.4, Aspartate Amino Transf (AST/SGOT) 13L, Alanine Aminotransferase (ALT/SGPT) 15, Alkaline Phosphatase 61, Total Protein 7.4, Albumin 3.7, Globulin 3.7, Albumin/Globulin Ratio 1.0, Amylase Level 122H, Lipase 147 10/28/18 08:20: Phosphorus Level 5.2H Height (Feet): 5 Height (Inches): 6.00 Weight (Pounds): 180 General Appearance: no apparent distress Cardiovascular: normal rate Abdomen: soft Objective no change Edgard Vega MD Oct 28, 2018 13:22
[2018-10-28 13:59] VITALS: BP 130/84
--- NOTE | 2018-10-28 15:21 | NUR ---
NURSE NOTES: Patient discharged. ID band removed. No IV. Belongings accounted for. Discharge paperwork signed and patient verbalized understanding. Escorted from facility without incident or injury.
--- NOTE | 2018-10-28 19:13 | Diagnostic Imaging Report ---
Indication:Abdominal pain Technique: Grayscale and duplex Doppler imaging of the abdomen performed. Comparison: None Findings: The liver is unremarkable. The gallbladder is unremarkable. The demonstrated part of the pancreas, aorta and IVC show no abnormalities. Both kidneys are small and appear markedly echogenic. Multiple bilateral renal cysts noted. The spleen is normal in size. There is no biliary ductal dilatation identified. Doppler evaluation of the main portal vein shows patency. There is no ascites. No hydronephrosis seen. Impression: Chronic renal insufficiency
--- NOTE | 2018-10-28 19:14 | Cardiology Report ---
APPROVED REPORT EKG Measurement Heart [id number] CO [id number] Sinus rhythm with premature atrial complexes Prolonged QT Abnormal ECG
--- NOTE | 2018-10-30 09:35 | Discharge Summary ---
Discharge Summary Discharge Summary _ Chart summary DATE OF ADMISSION: 10/21/2018 DATE OF DISCHARGE: 10/28/2018 DISCHARGED BY: Dr. Barragan REASON FOR ADMISSION: 43 years old female with past medical history of end-stage renal disease, on hemodialysis, atherosclerotic heart disease, osteoporosis, hypertension, presented to emergency department complaining of nausea and vomiting associated with abdominal pain for the last 24 hours. Pain initially started in epigastric area, then spread to to old abdomen. Pain reported as 10 out of 10 on a scale 1-10, nonradiating. Patient denied chest pain and shortness of breath. Patient denied diarrhea. Patient denied bright red blood per rectum. Upon evaluation vital signs revealed elevated blood pressure 168/97. Laboratory workup revealed no leukocytosis, stable hemoglobin and hematocrit. Potassium 6.8. BUN 51, creatinine 10.7, consistent with known history of end- stage renal disease. Glucose 79. Troponin - 0.04. EKG revealed sinus rhythm with peaked T waves in lateral leads. Lipase 169. Stable LFT. CT of the abdomen and pelvis demonstrated atrophic kidneys with innumerable cysts. No acute findings otherwise. Hyperkalemia was treated in emergency department. Analgesia provided. Patient was subsequently admitted to the hospital for further management. CONSULTANTS: assistant facility manager Dr. Ashley pulmonary Dr. Jaime GI specialist Dr. Ruiz aviation safety officer Dr. Vega [facility] HOSPITAL COURSE: Patient admitted to monitored floor. Pain management was addressed. Air Export Coordinator consulted for management of hemodialysis. Chest x-ray revealed no acute cardiopulmonary pathology. Supplemental oxygen was on board to keep pulse oximetry above 92%. Pulse oximetry was stable on room air. No signs of respiratory distress. Hemodialysis provided as per aviation safety officer recommendations with close monitoring of volumes, electrolytes and renal parameters. Electrolytes corrected as needed. Hyperkalemia resolved. Strategic Planner followed due to abnormal cardiac enzymes. EKG revealed no evidence of acute ischemic changes. Only one troponin was mildly elevated 0.072 and rest were stable. Patient denied chest pain. Pulse oximetry was stable on room air. Echocardiogram revealed preserved ejection fraction 55% with moderate left ventricular hypertrophy. No evidence of pericardial effusion. No evidence of wall motion abnormality. Right ventricular systolic pressure of 43 consistent with mild pulmonary hypertension. Patient likely had troponin leak secondary to renal failure. Abdominal ultrasound revealed chronic renal insufficiency, no other significant findings. GI specialist closely followed. Lipase remained stable along with LFT. EGD revealed mild gastritis. Biopsy of stomach antrum revealed mild chronic gastritis. Patient was on GI prophylaxis with PPI and Carafate. Antiemetic provided as needed. Bowel regimen instituted. GI specialist recommended consider colonoscopy if persistent abdominal pain. Patient possibly had gastroenteritis. Patient was clinically improving. Diet was slowly advanced as tolerated. Patient was able to tolerate diet. Hemoglobin and hematocrit were closely monitored with goal to keep hemoglobin above 7. Anemia workup revealed stable iron. Elevated ferritin 1297. Noted folate deficiency. Patient was started on folic acid supplement. structural steel trades worker met with the patient to discuss homeless placement. Patient only wanted places close to [place]. Patient reported that she had a place , that is safe and familiar to her, and she will return there. Taxi voucher preferred. Patient clinically stabilized and was ready for discharge. FINAL DIAGNOSES: Intractable nausea and vomiting with abdominal pain possibly due to gastroenteritis s/p EGD, Mild gastritis Hyperkalemia -resolved End-stage renal disease, on hemodialysis Hypertensive kidney disease. Abnormal cardiac enzymes Anemia DISCHARGE MEDICATIONS: See Medication Reconciliation list. DISCHARGE INSTRUCTIONS: Patient was discharged. Follow up with primary care provider in one week. Follow-up as outpatient hemodialysis as scheduled. I have been assigned to dictate discharge summary for this account. I was not involved in the patient's management. Stacy Hendricks NP Oct 30, 2018 09:35
== END 2018-10-28 15:23 | disposition home or self-care (01) | DRG 392 ==
LOC: EMR 13:24 → EDBEDREQ 14:42 → 2W 15:00 → EDBEDREQ 16:12 → 2W 23:15 → 2E 10-24 05:11 → 4E 10-24 18:45
PROC: 0DB78ZX Excision of Stomach, Pylorus, Via Natural or Artificial Opening Endoscopic, Diagnostic (ICD-10-PCS; principal; 2018-10-24 08:00)
PROC: 5A1D70Z Performance of Urinary Filtration, Intermittent, Less than 6 Hours Per Day (ICD-10-PCS; 2018-10-28)
DX: K52.9 Noninfective gastroenteritis and colitis, unspecified (principal); I12.0 Hypertensive chronic kidney disease with stage 5 chronic kidney disease or end stage renal disease; E87.5 Hyperkalemia; Z99.2 Dependence on renal dialysis; M81.0 Age-related osteoporosis without current pathological fracture; D63.1 Anemia in chronic kidney disease; I25.10 Atherosclerotic heart disease of native coronary artery without angina pectoris; D50.9 Iron deficiency anemia, unspecified; Z87.891 Personal history of nicotine dependence; K29.70 Gastritis, unspecified, without bleeding; E66.9 Obesity, unspecified; R74.8 Abnormal levels of other serum enzymes; Z59.0 Homelessness
CPT/HCPCS: 36415; 71045; 74177; 76700; 80048; 80053; 80061; 80069; 80076; 82150; 82378; 82607; 82728; 82746; 82962; 82977; 83036; 83540; 83550; 83690; 83735; 84100; 84443; 84484; 84550; 85007; 85025; 85610; 85730; 93005; 93306; 94003; 94150; 94664; 96365; 96366; 96375; 96376; 99285; J2250; J2405